=== PATIENT | male | born 1950 | race Caucasian/White ===

== ENCOUNTER 2020-08-23 14:36 | Outpatient (REF) | payer MEDICARE, SELFPAY | END 2020-08-23 14:37 | disposition home or self-care (01) | LOC: HO.LNP 14:36 | PROVIDERS: Visit Provider Internal Medicine | DX: Z20.828 Contact with and (suspected) exposure to other viral communicable diseases (principal) | CPT/HCPCS: U0003 ==

== ENCOUNTER 2020-10-11 14:18 | Outpatient (REF) | payer MEDICARE, SELFPAY ==
[2020-10-11 15:24] LABS: Influenza A PCR NEGATIVE (Negative); Influenza B PCR NEGATIVE (Negative); Resp Syncy Virus RNA Qual PCR NEGATIVE (Negative); SARS COV2 PCR INHOUSE NEGATIVE (Negative)
== END 2020-10-11 14:19 | disposition home or self-care (01) ==
LOC: HO.LNP 14:18
PROVIDERS: Visit Provider Internal Medicine
DX: Z20.822 Contact with and (suspected) exposure to COVID-19 (principal)
CPT/HCPCS: 0241U

== ENCOUNTER 2020-11-19 10:31 | Outpatient (REF) | payer MEDICARE, SELFPAY ==
[2020-11-19 13:34] LABS: MANUAL DIFF FLAG NO
[2020-11-19 13:51] LABS: Basophils Absolute Auto 0.1 X10*3/uL (0.0-0.2); Basophils Percent Auto 1.3 % (0-2); Eosinophils Absolute Auto 0.1 X10*3/uL (0.0-0.4); Eosinophils Percent Auto 2.9 % (0-4); Hematocrit 47.5 % (42-52); Hemoglobin 15.7 g/dl (14.0-18.0); Imm Gran Abs Auto 0.02 X10*3/uL (0.00-0.03); Imm Gran Pct Auto 0.4 % (0.0-0.4); Lymphocytes Absolute Auto 1.2 X10*3/uL (1.2-4.9); Lymphocytes Percent Auto 25.1 % (20-40); Mean Corpuscular HGB Conc 33.1 g/dl (31.0-36.0); Mean Corpuscular Hemoglobin 29.9 pg (27.0-33.0); Mean Corpuscular Volume 90.5 fL (80-98); Monocytes Absolute Auto 0.5 X10*3/uL (0.1-1.2); Monocytes Percent Auto 10.5 % (2-11); Neutrophils Absolute Auto 2.9 X10*3/uL (2.0-8.3); Neutrophils Percent Auto 59.8 % (45-73); Platelet Count 241 X10*3/uL (160-400); Red Blood Count 5.25 X10*6/uL (4.60-5.80); Red Cell Distribution Width 12.2 % (11.0-16.0); White Blood Count 4.8 X10*3/uL (4.8-10.8)
[2020-11-19 14:29] LABS: Alanine Aminotransferase 36 U/L (0-40); Albumin Level 4.3 g/dL (3.5-5.0); Alkaline Phosphatase 91 U/L (39-117); Anion Gap 14 (12-20); Aspartate Amino Transferase 29 U/L (5-37); Bilirubin Total 0.7 mg/dL (0.0-1.0); Blood Urea Nitrogen 19 mg/dL (9-16); Carbon Dioxide 26 mmol/L (22-29); Chloride 105 mmol/L (96-108); Cholesterol 236 mg/dL; Estimated Glomerular Filt Rate > 60; Glucose Fasting 90 mg/dL (60-99); HDL Cholesterol 35 mg/dL; LDL Cholesterol Calculated 172 mg/dl; Potassium 4.8 mmol/L (3.3-5.1); Sodium 140 mmol/L (135-145); Total Protein 6.5 g/dL (6.5-8.0); Triglycerides 145 mg/dL
[2020-11-19 14:34] LABS: Prostate Specific Antigen Scr 2.93 ng/mL (<0.05-4.0)
== END 2020-11-19 10:32 | disposition home or self-care (01) ==
LOC: HO.10HDL 10:31
PROVIDERS: Visit Provider Internal Medicine
DX: K21.9 Gastro-esophageal reflux disease without esophagitis (principal); E78.00 Pure hypercholesterolemia, unspecified; R35.1 Nocturia; Z12.5 Encounter for screening for malignant neoplasm of prostate
CPT/HCPCS: 36415; 80053; 80061; 84153; 85025

== ENCOUNTER 2020-12-03 10:24 | Outpatient (REF) | payer MEDICARE, SELFPAY ==
[2020-12-03 13:58] LABS: MANUAL DIFF FLAG NO
[2020-12-03 14:04] LABS: Basophils Absolute Auto 0.1 X10*3/uL (0.0-0.2); Basophils Percent Auto 0.5 % (0-2); Eosinophils Percent Auto 0.1 % (0-4); Hemoglobin 16.7 g/dl (14.0-18.0); Imm Gran Pct Auto 4.3 % (0.0-0.4); Lymphocytes Absolute Auto 1.1 X10*3/uL (1.2-4.9); Lymphocytes Percent Auto 8.1 % (20-40); Mean Corpuscular HGB Conc 33.4 g/dl (31.0-36.0); Mean Corpuscular Hemoglobin 29.9 pg (27.0-33.0); Mean Corpuscular Volume 89.4 fL (80-98); Mean Platelet Volume 9.8 fL (9.4-12.4); Monocytes Absolute Auto 0.9 X10*3/uL (0.1-1.2); Monocytes Percent Auto 6.3 % (2-11); Neutrophils Absolute Auto 11.3 X10*3/uL (2.0-8.3); Neutrophils Percent Auto 80.7 % (45-73); Platelet Count 251 X10*3/uL (160-400); Red Blood Count 5.59 X10*6/uL (4.60-5.80); Red Cell Distribution Width 12.6 % (11.0-16.0)
[2020-12-03 14:27] LABS: Estimated Average Glucose 111 mg/dL; Hemoglobin A1c % 5.5 %
[2020-12-03 14:37] LABS: Alanine Aminotransferase 40 U/L (0-40); Albumin Level 4.1 g/dL (3.5-5.0); Alkaline Phosphatase 88 U/L (39-117); Anion Gap 15 (12-20); Aspartate Amino Transferase 19 U/L (5-37); Bilirubin Total 0.9 mg/dL (0.0-1.0); Blood Urea Nitrogen 27 mg/dL (9-16); Calcium 8.6 mg/dL (8.4-10.2); Carbon Dioxide 24 mmol/L (22-29); Chloride 105 mmol/L (96-108); Estimated Glomerular Filt Rate > 60; Glucose Random 112 mg/dL (60-115); Potassium 4.4 mmol/L (3.3-5.1); Sodium 140 mmol/L (135-145); Total Protein 6.2 g/dL (6.5-8.0)
== END 2020-12-03 10:25 | disposition home or self-care (01) ==
LOC: HO.10HDL 10:24
PROVIDERS: Visit Provider Internal Medicine
DX: E11.9 Type 2 diabetes mellitus without complications (principal); K29.70 Gastritis, unspecified, without bleeding; J45.909 Unspecified asthma, uncomplicated
CPT/HCPCS: 36415; 80053; 83036; 85025

== ENCOUNTER 2020-12-09 14:47 | Outpatient (REF) | payer MEDICARE, SELFPAY ==
--- NOTE | ~2020-12-09 | XR_ITS ---
EXAMINATION: XR RIBS, RIGHT CLINICAL INFORMATION: Right rib pain COMPARISON: Previous chest x-ray most recent November 2015 TECHNIQUE: 3 views of the right ribs and one view of the chest were obtained. FINDINGS: The cardiac and mediastinal contours are normal. The lungs are clear. There is no pleural effusion or pneumothorax. There is a vertical lucency in the right anterior eighth rib seen on one view only questionable for a nondisplaced fracture, image 3. There are degenerative changes of the thoracic spine. XR/XR ribs RT min 3V w CXR1V IMPRESSION: No evidence for acute disease in the chest. Question nondisplaced right anterior eighth rib fracture. Degenerative changes of the thoracic spine.
== END 2020-12-09 14:48 | disposition home or self-care (01) ==
LOC: HO.XRAY 14:47
PROVIDERS: PCP Internal Medicine; Visit Provider Internal Medicine
DX: R07.81 Pleurodynia (principal)
CPT/HCPCS: 71101

== ENCOUNTER 2021-01-29 12:40 | Emergency (ER) | payer MEDICARE, SELFPAY ==
--- NOTE | ~2021-01-29 | XR_ITS ---
EXAMINATION: XR CHEST CLINICAL INFORMATION: Headache COMPARISON: 11/29/2015 TECHNIQUE: Frontal view of the chest was obtained. FINDINGS: Normal symmetric lung volumes. No parenchymal consolidation. No pleural effusion. No pneumothorax. Cardiomediastinal silhouette and pulmonary vascularity are within normal limits. No acute osseous abnormalities. XR/XR chest 1V IMPRESSION: Unremarkable examination.
--- NOTE | ~2021-01-29 | CT_ITS ---
EXAMINATION: CT HEAD WITHOUT CONTRAST CLINICAL INFORMATION: Headache COMPARISON: None TECHNIQUE: Contiguous axial imaging was performed from the skull base to vertex without intravenous administration of contrast. This CT examination was performed using dose optimization techniques as appropriate, variously including the following: *Automated exposure control *Adjustment of mA and/or kV according to patient size (this includes techniques or standardized protocols for targeted exams where dose is matched to indication/reason for exam; i.e. extremities or head) *Use of iterative reconstruction technique DLP: 768 mGy-cm FINDINGS: There is no evidence of acute intracranial hemorrhage or territorial infarction. No abnormal mass effect or midline shift is seen. Sosa to white matter differentiation is well preserved. No extra-axial fluid collections are identified. The ventricles are normal in size. There is no abnormal attenuation within the brain parenchyma. The osseous structures and soft tissues are normal. The mastoid air cells and visualized portions of the paranasal sinuses are well aerated. CT/CT head/brain wo con IMPRESSION: No acute intracranial pathology.
[2021-01-29 13:00] VITALS: BP 141/80; PULSE 74; RESP 18; TEMP 36.6; O2SAT 96; BMI 27.2
--- NOTE | 2021-01-29 14:27 | ECG_ITS ---
Test Reason : HTN Blood Pressure : / mmHG Vent. Rate : 076 BPM Atrial Rate : 076 BPM P-R Int : 180 ms QRS Dur : 082 ms QT Int : 372 ms P-R-T Axes : 033 -04 -07 degrees QTc Int : 418 ms Normal sinus rhythm Normal ECG When compared with ECG of 29-NOV-2015 20:26, No significant change was found Referred By: Shirin Cerna Electronically Signed By:CLAUDIA DEVRIES MD
--- NOTE | 2021-01-29 14:28 | ED.HA ---
HPI - Headache General Chief Complaint: Headache Stated Complaint: HPB, headache Time Seen by Provider: 01/29/21 14:26 Source: patient and family (Spouse) Mode of arrival: ambulatory Limitations: no limitations History of Present Illness HPI Narrative: 70-year-old male who came in for evaluation of hypertension and headache. [age] male noted at home (using 's blood pressure machine at home) to have high blood pressure for the past 2 days, patient has been having headache since yesterday that started gradually patient is prone to headaches, patient on both sides of the head, blurry vision but no photophobia, no neck stiffness, pain is not radiating anywhere, patient describe it as severe headache which is constant since last night, nothing make it worse or better. Patient had similar headaches in the past. Patient also noted that his both systolic/diastolic blood pressure been high for the last 2 days patient is not diagnosed with hypertension or taking medication for high blood pressure. 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 Related Data Allergies Allergy/AdvReac Type Severity Reaction Status Date / Time Sulfa (Sulfonamide Allergy Mild RASH Unverified 06/24/20 16:20 Antibiotics) [Sulfa (Sulfonamides)] bee pollen [BEE STINGS] Allergy Unknown SWELLING Unverified 06/24/20 16:20 albuterol [Albuterol] AdvReac Mild JITTERY Unverified 06/24/20 16:20 theophylline [Theophylline] AdvReac Mild NAUSEA & Unverified 06/24/20 16:20 VOMITING perfume AdvReac Cough Verified 01/29/21 13:09 GRASS Allergy Severe DIFFICULTY Uncoded 06/24/20 16:20 BREATHING FROM GRASS AND LEAVES Review of Systems Review of Systems: All other systems are reviewed and are negative Constitutional: Reports as per HPI and Reports no additional constitutional complaints Eyes: Reports as per HPI and Reports no additional eye complaints Reports system reviewed and no additional complaints, except as documented Cardiovascular: Reports as per HPI and Reports no additional cardiovascular complaints Respiratory: Reports as per HPI and Reports no additional respiratory complaints Gastrointestinal: Reports as per HPI and Reports no additional gastrointestinal complaints Genitourinary: Reports no additional female genitourinary complaints Musculoskeletal: Reports no additional musculoskeletal complaints Skin/Breast: Reports system reviewed and no additional complaints, except as docu Psychiatric: Reports no additional psychiatric complaints Endocrine: Reports no additional endocrine complaints Hematologic/Lymphatic: Reports no additional hematologic/lymphatic complaints Allergic/Immunologic: Reports no additional allergic/immunologic complaints Reports system reviewed and no additional complaints, except as documented and Reports Abnormal speech present [facility] Past Medical History Medical History Asthma GERD (gastroesophageal reflux disease) Social History Social History Advance Directives: No Advance Directives Information Provided: No Physical Exam Vital Signs: Vital Signs: Last Vital Signs Temp 97.8 F 01/29/21 13:00 Pulse 64 01/29/21 15:20 Resp 18 01/29/21 14:38 BP 146/86 H 01/29/21 14:38 Pulse Ox 96 01/29/21 14:38 Body Mass Index 27.2 Vital signs have been reviewed as appeared to be correct. Blood pressure elevated. Heart rate normal. Respiration rate normal. Temperature normal. Oxygen saturation normal. Appearance: Alert. Oriented X3. No acute distress. Appear very anxious Head: Normal external exam. Normocephalic. Atraumatic. No Chavez signs noted. No raccoon eyes noted Eyes: PERRLA. EOMI. Conjunctiva and sclera normal. Eyelids normal. ENT: TM's Normal. Pharynx normal. Uvula midline. Moist mucous membranes. No trismus noted. No drooling noted. No muffled voice noted. Neck: Normal inspection. Neck supple. FROM. No adenopathy. Thyroid Normal. No meningeal signs. No neck mass noted. CVS: Normal heart rate and rhythm. Heart sound normal. No murmurs noted. Pulses normal throughout. Respiratory: No respiratory distress. Painless inspiration. Breath sounds normal. No wheezes/rales/rhonchi noted. Chest nontender. No accessory muscle usage noted or decreased air movement noted. Abdomen: Soft and nontender. Bowel sounds normal in all 4 quadrants. No distention noted. No organomegaly noted. No visible injury noted. Back: No CVA tenderness. Full range of motion noted. Skin: Skin warm and dry. Normal skin color. Normal skin turgor. No rashes/lesions/lacerations noted. Extremities: No lower extremity edema. Extremities exhibit normal range of motion. Extremities nontender. Neuro: Oriented X 3. No motor deficit. No sensory deficit. Reflexes normal. Course Course Course Narrative: Assessment and plan. 70-year-old male who came in for evaluation of high blood pressure and headache, patient while in the emergency department started to have wheezing and laryngeal spasm (known history of it). Patient has a history of environmental allergy and different perfume he thinks he smelled 1 of the nurses perfume that triggered his condition. Patient required 1 dose of prednisone/albuterol/Ativan to help with anxiety. Patient now with less anxious, headache is better with Toradol, patient had a normal neuro exam/CT head and blood pressure has been monitored in the emergency department systolic of 140 and diastolic in the 80s. Patient will see his PCP this week patient was instructed to take many readings of blood pressure and reviewed with his PCP to decide whether to be started on antihypertensive medication. Airways patent, no stridor, no more wheezing after patient received 1 dose of prednisone and albuterol. MDM - Headache Lab Data Attestation: I reviewed the patient's lab results. Result diagrams: 01/29/21 15:18 01/29/21 15:18 Labs: Lab Results 01/29/21 01/29/21 01/29/21 Range/Units 15:18 15:18 15:18 WBC 6.4 (4.8-10.8) X10*3/uL RBC 5.19 (4.60-5.80) X10*6/uL Hgb 15.4 (14.0-18.0) g/dl Hct 46.5 (42-52) % MCV 89.6 (80-98) fL MCH 29.7 (27.0-33.0) pg MCHC 33.1 (31.0-36.0) g/dl RDW 13.5 (11.0-16.0) % Plt Count 222 (160-400) X10*3/uL MPV 9.5 (9.4-12.4) fL Immature Gran % (Auto) 1.3 H (0.0-0.4) % Neut % (Auto) 67.2 (45-73) % Lymph % (Auto) 17.6 L (20-40) % [place] % (Auto) 10.5 (2-11) % Eos % (Auto) 2.5 (0-4) % Baso % (Auto) 0.9 (0-2) % Lymph # (Auto) 1.1 L (1.2-4.9) X10*3/uL [place] # (Auto) 0.7 (0.1-1.2) X10*3/uL Eos # (Auto) 0.2 (0.0-0.4) X10*3/uL Baso # (Auto) 0.1 (0.0-0.2) X10*3/uL Abs Immat Gran (auto) 0.08 H (0.00-0.03) X10*3/uL Absolute Neuts (auto) 4.3 (2.0-8.3) X10*3/uL Absolute Nucleated RBC 0.000 (0.0-0.012) X10*3/uL Nucleated RBC % (auto) 0.0 (0.0-0.2) /100WBC Sodium 140 (135-145) mmol/L Potassium 4.5 (3.3-5.1) mmol/L Chloride 106 (96-108) mmol/L Carbon Dioxide 25 (22-29) mmol/L Anion Gap 14 (12-20) BUN 20 H (9-16) mg/dL Creatinine 0.85 (0.5-1.4) mg/dL Estim Creat Clear Calc 82.3 Estimated GFR > 60 Random Glucose 86 (60-115) mg/dL Calcium 9.2 D (8.4-10.2) mg/dL Total Bilirubin 0.6 (0.0-1.0) mg/dL Direct Bilirubin 0.2 (0.0-0.5) mg/dL AST 28 D (5-37) U/L ALT 37 (0-40) U/L Alkaline Phosphatase 86 (39-117) U/L Troponin I High Sens 4.1 (<3.5-35.0) ng/L B-Natriuretic Peptide 14 (<100) pg/mL Total Protein 6.4 L (6.5-8.0) g/dL Albumin 4.2 (3.5-5.0) g/dL Lipase 6 L (8-78) U/L COVID-19 ([facility]) (Negative) COVID-19 Clin Com 01/29/21 Range/Units 15:18 WBC (4.8-10.8) X10*3/uL RBC (4.60-5.80) X10*6/uL Hgb (14.0-18.0) g/dl Hct (42-52) % MCV (80-98) fL MCH (27.0-33.0) pg MCHC (31.0-36.0) g/dl RDW (11.0-16.0) % Plt Count (160-400) X10*3/uL MPV (9.4-12.4) fL Immature Gran % (Auto) (0.0-0.4) % Neut % (Auto) (45-73) % Lymph % (Auto) (20-40) % [place] % (Auto) (2-11) % Eos % (Auto) (0-4) % Baso % (Auto) (0-2) % Lymph # (Auto) (1.2-4.9) X10*3/uL [place] # (Auto) (0.1-1.2) X10*3/uL Eos # (Auto) (0.0-0.4) X10*3/uL Baso # (Auto) (0.0-0.2) X10*3/uL Abs Immat Gran (auto) (0.00-0.03) X10*3/uL Absolute Neuts (auto) (2.0-8.3) X10*3/uL Absolute Nucleated RBC (0.0-0.012) X10*3/uL Nucleated RBC % (auto) (0.0-0.2) /100WBC Sodium (135-145) mmol/L Potassium (3.3-5.1) mmol/L Chloride (96-108) mmol/L Carbon Dioxide (22-29) mmol/L Anion Gap (12-20) BUN (9-16) mg/dL Creatinine (0.5-1.4) mg/dL Estim Creat Clear Calc Estimated GFR Random Glucose (60-115) mg/dL Calcium (8.4-10.2) mg/dL Total Bilirubin (0.0-1.0) mg/dL Direct Bilirubin (0.0-0.5) mg/dL AST (5-37) U/L ALT (0-40) U/L Alkaline Phosphatase (39-117) U/L Troponin I High Sens (<3.5-35.0) ng/L B-Natriuretic Peptide (<100) pg/mL Total Protein (6.5-8.0) g/dL Albumin (3.5-5.0) g/dL Lipase (8-78) U/L COVID-19 ([facility]) Negative (Negative) COVID-19 Clin Com See Note Imaging Data Chest x-ray: Radiologist's impression: Unremarkable examination. CT scan - head: Radiologist's impression: No acute intracranial pathology. ECG Data Interpretation: Normal sinus rhythm at 76 beats per minutes, normal intervals, no ST-T changes, no evidence of LVH. Discharge Plan Discharge Clinical Impression: Anxiety Headache Qualifiers: Headache type: tension-type Headache chronicity pattern: acute headache Intractability: not intractable Qualified Code(s): G44.209 - Tension-type headache, unspecified, not intractable Allergic reaction Qualifiers: Encounter type: subsequent encounter Qualified Code(s): T78.40XD - Allergy, unspecified, subsequent encounter Patient Disposition: Home, Self-Care Instructions: Acute Headache (ED) Additional Instructions: Take records of your blood pressure at different times during the day and showed to primary doctor to decide whether to start you on blood pressure medication or not. Referrals: Socrates Garcia MD [Primary Care Provider] - 2 days
[2021-01-29 14:38] VITALS: BP 146/86; PULSE 68; RESP 18; O2SAT 96
[2021-01-29] MEDS: Acetaminophen 325 MG TABLET 650 MG PO (15:08)
[2021-01-29] MEDS: predniSONE 20 MG TABLET 40 MG PO (15:08)
[2021-01-29] MEDS: LORazepam 1 MG TABLET PO (15:09)
--- NOTE | 2021-01-29 15:10 | PC.NURSE ---
Pt medicated with prednisone, tylenol, and ativan. Awaiting resp therapy to admin updraft as pt has developed some upper airway wheezes. Pt's lungs are clear. Sats 96% on RA.
[2021-01-29 15:20] VITALS: PULSE 64
[2021-01-29] MEDS: Albuterol/Iprat 2.5/0.5MG 3 ML AMPUL.NEB INHALE (15:20)
[2021-01-29 15:38] LABS: MANUAL DIFF FLAG NO
[2021-01-29 15:42] LABS: Basophils Absolute Auto 0.1 X10*3/uL (0.0-0.2); Basophils Percent Auto 0.9 % (0-2); Eosinophils Absolute Auto 0.2 X10*3/uL (0.0-0.4); Eosinophils Percent Auto 2.5 % (0-4); Hematocrit 46.5 % (42-52); Hemoglobin 15.4 g/dl (14.0-18.0); Imm Gran Abs Auto 0.08 X10*3/uL (0.00-0.03); Imm Gran Pct Auto 1.3 % (0.0-0.4); Lymphocytes Absolute Auto 1.1 X10*3/uL (1.2-4.9); Lymphocytes Percent Auto 17.6 % (20-40); Mean Corpuscular HGB Conc 33.1 g/dl (31.0-36.0); Mean Corpuscular Hemoglobin 29.7 pg (27.0-33.0); Mean Corpuscular Volume 89.6 fL (80-98); Mean Platelet Volume 9.5 fL (9.4-12.4); Monocytes Absolute Auto 0.7 X10*3/uL (0.1-1.2); Monocytes Percent Auto 10.5 % (2-11); Neutrophils Absolute Auto 4.3 X10*3/uL (2.0-8.3); Neutrophils Percent Auto 67.2 % (45-73); Platelet Count 222 X10*3/uL (160-400); Red Blood Count 5.19 X10*6/uL (4.60-5.80); Red Cell Distribution Width 13.5 % (11.0-16.0); White Blood Count 6.4 X10*3/uL (4.8-10.8)
[2021-01-29 16:04] LABS: COVID-19 Test Negative (Negative); IDNOW Serial# 9DD0AD1C
[2021-01-29 16:06] LABS: Alanine Aminotransferase 37 U/L (0-40); Albumin Level 4.2 g/dL (3.5-5.0); Alkaline Phosphatase 86 U/L (39-117); Anion Gap 14 (12-20); Aspartate Amino Transferase 28 U/L (5-37); B Type Natriuretic Peptide 14 pg/mL (<100); Bilirubin Direct 0.2 mg/dL (0.0-0.5); Bilirubin Total 0.6 mg/dL (0.0-1.0); Blood Urea Nitrogen 20 mg/dL (9-16); Calcium 9.2 mg/dL (8.4-10.2); Carbon Dioxide 25 mmol/L (22-29); Chloride 106 mmol/L (96-108); Creatinine Clr Calc Pharmacy 82.3; Estimated Glomerular Filt Rate > 60; Glucose Random 86 mg/dL (60-115); Lipase 6 U/L (8-78); Potassium 4.5 mmol/L (3.3-5.1); Sodium 140 mmol/L (135-145); Total Protein 6.4 g/dL (6.5-8.0); Troponin-I High Sensitivity 4.1 ng/L (<3.5-35.0)
[2021-01-29] MEDS: Ketorolac Tromethamine 15 MG/ML VIAL IV (16:23)
[2021-01-29] MEDS: 0.9 % Sodium Chloride 1,000 ML 999 ML IVCONT (16:26)
[2021-01-29 17:16] VITALS: BP 139/84; PULSE 85; RESP 16; O2SAT 96
--- NOTE | 2021-01-29 17:26 | PC.NURSE ---
Pt reports that he is feeling better. He was sleeping before he was given DC paperwork. Left with upon discharge.
== END 2021-01-29 17:27 | disposition home or self-care (01) ==
PROVIDERS: Emergency Provider Emergency Medicine; PCP Internal Medicine
DX: G44.209 Tension-type headache, unspecified, not intractable (principal); F41.9 Anxiety disorder, unspecified; T78.49XA Other allergy, initial encounter; R06.2 Wheezing; X58.XXXA Exposure to other specified factors, initial encounter; Z20.822 Contact with and (suspected) exposure to COVID-19
CPT/HCPCS: 36415; 70450; 71045; 80048; 80076; 83690; 83880; 84484; 85025; 87635; 93005; 94640; 96361; 96374; 99284; J1885

== ENCOUNTER 2021-03-14 11:36 | Day surgery (SDC) | payer MEDICARE, SELFPAY ==
--- NOTE | 2021-03-11 08:09 | HO.ANESPROP2 ---
Documented by User: Mare Hammer 03/11/21 08:10 HPI - Anesthesia Eval Consult details Narrative: 70yo M for Colonoscopy PMFSH Past Medical History Medical History Asthma GERD (gastroesophageal reflux disease) Social History Social History Patient Tobacco Use Status: Former Tobacco user Use of substances other than those prescribed or required for medical reasons: No Have you been hit, kicked, punched, or otherwise hurt by someone within the past year? If so, by whom?: No Are you DNR?: No Advance Directives: No Advance Directives Information Provided: Yes Meds Allergies Allergy/AdvReac Type Severity Reaction Status Date / Time Sulfa (Sulfonamide Allergy Mild RASH Verified 03/14/21 12:39 Antibiotics) [Sulfa (Sulfonamides)] bee pollen [BEE STINGS] Allergy Unknown SWELLING Verified 03/14/21 12:39 albuterol [Albuterol] AdvReac Mild JITTERY Verified 03/14/21 12:39 theophylline [Theophylline] AdvReac Mild NAUSEA & Verified 03/14/21 12:39 VOMITING perfume AdvReac Cough Verified 03/14/21 12:39 GRASS Allergy Severe DIFFICULTY Uncoded 03/14/21 12:39 BREATHING FROM GRASS AND LEAVES Exam Exam Date and Time: March 11, 2021 0809 Assessment and Plan Assessment Anesthesia Assessment: Chart Reviewed Documented by User: Alona Argueta 03/14/21 12:51 PMFSH Past Medical History Medical History Asthma GERD (gastroesophageal reflux disease) Family History Family history of problems with anesthesia: No Surgical History History of Problems with Anesthesia: No Social History Social History Patient Tobacco Use Status: Former Tobacco user Use of substances other than those prescribed or required for medical reasons: No Have you been hit, kicked, punched, or otherwise hurt by someone within the past year? If so, by whom?: No Are you DNR?: No Advance Directives: No Advance Directives Information Provided: Yes Meds Allergies Allergy/AdvReac Type Severity Reaction Status Date / Time Sulfa (Sulfonamide Allergy Mild RASH Verified 03/14/21 12:39 Antibiotics) [Sulfa (Sulfonamides)] bee pollen [BEE STINGS] Allergy Unknown SWELLING Verified 03/14/21 12:39 albuterol [Albuterol] AdvReac Mild JITTERY Verified 03/14/21 12:39 theophylline [Theophylline] AdvReac Mild NAUSEA & Verified 03/14/21 12:39 VOMITING perfume AdvReac Cough Verified 03/14/21 12:39 GRASS Allergy Severe DIFFICULTY Uncoded 03/14/21 12:39 BREATHING FROM GRASS AND LEAVES Exam Exam Date and Time: Vital Signs Temp Pulse Resp BP Pulse Ox 03/14/21 11:46 98.1 F 74 18 113/79 95 Airway Mallampati Class: II TM Dist: >3cm Neck ROM: Full Heart: RRR Lungs: CTAB Assessment and Plan Assessment Anesthesia Assessment: Anesthesia Plan Discussed and Chart Reviewed Final Anesthetic Review NPO: Yes ASA Class: II Final Preanesthetic Review: No Changes in Pt Med Stat, Meds/Allgs Chart Reviewed, Consent Obtained/Reviewed and Anes Risks/Benef Reviewed Patient Risk: Low Procedure Risk: Low Assessment/Block/Sedation in SS: Assess/Block/Sedation-SS Anesthetic Plan Anesthetic Plan: MAC: Disposition: Standard PACU
[2021-03-14 11:46] VITALS: BP 113/79; PULSE 74; RESP 18; TEMP 36.7; O2SAT 95; BMI 28.7
[2021-03-14] MEDS: Lactated Ringers 1,000 ML 100 ML IVCONT (12:02)
--- NOTE | 2021-03-14 13:28 | PM.OP ---
Brief Operative Note Date of Service: 03/14/21 Pre-op diagnosis: Screening Post-op diagnosis: other (Colon polyp) Procedure: Colonoscopy top the cecum and TI with snare polypectomy Surgeon: Demetrius Riojas Anesthesia: MAC Was an Vice President Of Engineering used for this Procedure?: No Estimated blood loss (mL): 0 Pathology: other (A. Proximal rectal polyp) Condition: stable Disposition: PACU
[2021-03-14 13:29] VITALS: BP 119/71; PULSE 65; RESP 16; TEMP 36.1; O2SAT 100
[2021-03-14 13:44] VITALS: BP 124/70; PULSE 72; RESP 16; O2SAT 96
[2021-03-14 13:59] VITALS: BP 144/81; PULSE 59; RESP 17; TEMP 36; O2SAT 96
[2021-03-14] MEDS: Albuterol/Iprat 2.5/0.5MG 3 ML AMPUL.NEB INHALE (14:26)
[2021-03-14 14:33] VITALS: RESP 20; O2SAT 99
--- NOTE | 2021-03-14 23:14 | OP_ITS ---
SURGEON: Demetrius Riojas MD INDICATIONS: The patient presents for evaluation of colorectal cancer screening. Full consent has been obtained from him for this, including risks of bleeding and perforation. PREOPERATIVE DIAGNOSIS: Colorectal cancer screening. POSTOPERATIVE DIAGNOSIS: PROCEDURE PERFORMED: Colonoscopy to cecum and terminal ileum with snare polypectomy. ESTIMATED BLOOD LOSS: COMPLICATIONS: ANESTHESIA: Monitored anesthesia care. ASSISTANTS: SPECIMENS: POSTOPERATIVE DIAGNOSES: Colorectal cancer screening, colon polyp, diverticulosis, and internal hemorrhoids. DESCRIPTION OF PROCEDURE: The patient was placed in the left lateral decubitus position. The digital rectal exam revealed no abnormalities. The Olympus video pediatric colonoscope was entered into the rectum and advanced to the cecum with the assistance of abdominal wall pressure. Once in the cecum, I did identify normal-appearing cecal pouch with appendiceal orifice and a normal-appearing ileocecal valve. The terminal ileum was cannulated and appeared normal. Scope was withdrawn back in the colon. The entire cecum and ileocecal valve appeared normal. The scope was slowly withdrawn assessing all mucosal surfaces carefully. Preparation was excellent. There was a moderate amount of sigmoid diverticulosis. In the proximal rectum, was an approximately 10 to 12 mm polyp, which was snared and recovered by suction. The polypectomy site appeared clean, without any sign of residual polyp nor bleeding. I did not visualize any other polyps, colitis, nor angiodysplasia. In the rectum, scope was retroflexed visualizing internal hemorrhoids, but no other pathology. The rectal mucosa appeared normal. The scope was straightened out and withdrawn from the patient. He tolerated the procedure well and was returned to the recovery area in stable condition. IMPRESSION: 1. Proximal rectal polyp, status post snare polypectomy. 2. Diverticulosis. 3. Internal hemorrhoids. PLAN: The results of the biopsy will be checked. Assuming it to be a tubular adenoma, I would recommend a followup colonoscopy in 5 years. If it happens only be hyperplastic and/or inflammatory, then he most likely would not need any further screening colonoscopies given his age of 70, and no first-degree relatives with colorectal cancer. He was advised not to use any aspirin and NSAIDs for 1 week. MD AWAIS Tate/ENOCHL / [phone]
== END 2021-03-14 14:55 | disposition home or self-care (01) ==
PROVIDERS: PCP Internal Medicine; Visit Provider Internal Medicine
PROC: 0DJD8ZZ Inspection of Lower Intestinal Tract, Via Natural or Artificial Opening Endoscopic (ICD-10-PCS; CPT 45378; principal; 2021-03-14 11:50)
DX: Z12.11 Encounter for screening for malignant neoplasm of colon (principal); D12.8 Benign neoplasm of rectum; K57.30 Diverticulosis of large intestine without perforation or abscess without bleeding; K64.8 Other hemorrhoids; K21.9 Gastro-esophageal reflux disease without esophagitis; J45.909 Unspecified asthma, uncomplicated; Z87.891 Personal history of nicotine dependence; Z88.2 Allergy status to sulfonamides; Z88.8 Allergy status to other drugs, medicaments and biological substances
CPT/HCPCS: 45385; 88305

== ENCOUNTER 2021-03-30 12:03 | Outpatient (REF) | payer MEDICARE, SELFPAY ==
[2021-03-30 13:44] LABS: Anion Gap 8 (12-20); Blood Urea Nitrogen 21 mg/dL (9-16); Carbon Dioxide 27 mmol/L (22-29); Chloride 108 mmol/L (96-108); Cholesterol 228 mg/dL; Estimated Glomerular Filt Rate > 60; Glucose Fasting 94 mg/dL (60-99); HDL Cholesterol 36 mg/dL; LDL Cholesterol Calculated 156 mg/dl; Potassium 4.2 mmol/L (3.3-5.1); Sodium 139 mmol/L (135-145); Triglycerides 182 mg/dL
[2021-03-30 14:03] LABS: Vitamin D 25-OH Total 51.1 ng/mL (>30)
== END 2021-03-30 12:04 | disposition home or self-care (01) ==
LOC: HO.10HDL 12:03
PROVIDERS: Visit Provider Internal Medicine
DX: E78.00 Pure hypercholesterolemia, unspecified (principal); I10 Essential (primary) hypertension; J45.909 Unspecified asthma, uncomplicated
CPT/HCPCS: 36415; 80048; 80061; 82306

== ENCOUNTER 2021-06-28 11:10 | Outpatient (REF) | payer MEDICARE, SELFPAY ==
[2021-06-28 14:21] LABS: Cholesterol 211 mg/dL; HDL Cholesterol 35 mg/dL; LDL Cholesterol Calculated 148 mg/dl; Triglycerides 140 mg/dL
== END 2021-06-28 11:11 | disposition home or self-care (01) ==
LOC: HO.10HDL 11:10
PROVIDERS: Visit Provider Internal Medicine
DX: E78.00 Pure hypercholesterolemia, unspecified (principal)
CPT/HCPCS: 36415; 80061

== ENCOUNTER 2021-09-22 16:41 | Outpatient (REF) | payer MEDICARE, SELFPAY ==
[2021-09-22 17:26] LABS: Influenza A PCR NEGATIVE (Negative); Influenza B PCR NEGATIVE (Negative); Resp Syncy Virus RNA Qual PCR NEGATIVE (Negative); SARS COV2 PCR INHOUSE NEGATIVE (Negative)
== END 2021-09-22 16:42 | disposition home or self-care (01) ==
LOC: HO.LNP 16:41
PROVIDERS: Visit Provider Internal Medicine
DX: R09.82 Postnasal drip (principal); R07.89 Other chest pain; R51.9 Headache, unspecified; Z20.822 Contact with and (suspected) exposure to COVID-19
CPT/HCPCS: 0241U

== ENCOUNTER 2021-11-25 10:08 | Outpatient (REF) | payer MEDICARE, SELFPAY ==
--- NOTE | 2021-11-25 11:12 | MHC.AU.ANO ---
Adult Audiological Evaluation Date of Visit: 11/25/21 Reason for Appointment: Patient has started to notice he is asking people to speak up and asking for repetition more often. He has difficulty hearing if someone is speaking in a soft voice. For the most part, he feels he is hearing well in one-on-one conversations. Does patient feel they have a hearing loss?: Yes If Yes, Which Ear?: Both Ears Has hearing been tested previously?: Yes Previous Hearing Test Results: In 2008 at [facility] and Ear- results were not immediately available for review. Patient remembers being told he had hearing loss around the 4000 Hz range. 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 History: No Medical History: Medical History: Headaches, Hypertension, Asthma, Allergies, History of dysphonia secondary to GERD Medication List: Protonix, Sinulair, Flomax, Norvasc, Xanax, Vitamin D Otoscopy: Right Ear: Unremarkable Left Ear: Unremarkable Tympanometry: Tympanometry performed due to: To assess integrity of the middle ear system Right Ear: Normal Middle Ear System (Type A) Left Ear: Normal Middle Ear System (Type A) Hearing Evaluation: Transducer(s) Used: Insert Earphones Method: Conventional Audiometry Stimuli Used: Pure Tones Right Ear: Description of Hearing: Normal from 250-1000 Hz, sloping to moderate sensorineural hearing loss Left Ear: Description of Hearing: Normal from 250-1000 Hz, sloping to moderate sensorineural hearing loss Speech Recognition Threshold (SRT): Method Used: Recorded Lists Stimuli Used: Spondee Words Right Ear: 10 dBHL Left Ear: 10 dBHL Word Discrimination: Method: Recorded Lists Word Lists Used: W-22 Right Ear: 96% at 60 dBHL Left Ear: 100% at 60 dBHL Most Comfortable Level (MCL): Right Ear: 60 dBHL Left Ear: 60 dBHL QuickSIN: Tested binaurally at 60 dBHL: 3 dB SNR loss, which suggests normal/average level of difficulty listening in noise Recommendations: Audiological re-evaluation in one year. Patient does not feel that his hearing loss is significantly impacting his daily life. His word discrimination at an average conversational volume is excellent and his ability to hear in noise is within average range. Hearing aids may not be warranted at this time. Diagnosis: Primary Diagnosis: H90.3 Bilateral Sensorineural Hearing Loss Signature: Provider: Tana Ferrari, CCC-A
== END 2021-11-25 10:09 | disposition home or self-care (01) ==
LOC: HO.SH 10:08
PROVIDERS: Visit Provider Internal Medicine
DX: Z01.118 Encounter for examination of ears and hearing with other abnormal findings (principal); H90.3 Sensorineural hearing loss, bilateral
CPT/HCPCS: 92557; 92567

== ENCOUNTER 2022-04-05 10:34 | Outpatient (REF) | payer MEDICARE, SELFPAY ==
[2022-04-05 13:38] LABS: MANUAL DIFF FLAG NO
[2022-04-05 13:40] LABS: Basophils Percent Auto 0.8 % (0-2); Eosinophils Absolute Auto 0.2 X10*3/uL (0.0-0.4); Eosinophils Percent Auto 2.9 % (0-4); Hemoglobin 14.5 g/dl (14.0-18.0); Imm Gran Abs Auto 0.02 X10*3/uL (0.00-0.03); Imm Gran Pct Auto 0.4 % (0.0-0.4); Lymphocytes Absolute Auto 1.1 X10*3/uL (1.2-4.9); Lymphocytes Percent Auto 22.2 % (20-40); Mean Corpuscular Hemoglobin 29.6 pg (27.0-33.0); Mean Corpuscular Volume 89.8 fL (80.0-98.0); Mean Platelet Volume 10.2 fL (9.4-12.4); Monocytes Absolute Auto 0.6 X10*3/uL (0.1-1.2); Monocytes Percent Auto 11.3 % (2-11); Neutrophils Absolute Auto 3.2 x10*3/uL (2.0-8.3); Neutrophils Percent Auto 62.4 % (45-73); Platelet Count 213 X10*3/uL (160-400); Red Cell Distribution Width 12.9 % (11.0-16.0); White Blood Count 5.1 X10*3/uL (4.8-10.8)
[2022-04-05 13:54] LABS: Alanine Aminotransferase 30 U/L (0-40); Albumin Level 4.2 g/dL (3.5-5.0); Alkaline Phosphatase 104 U/L (39-117); Anion Gap 11 (12-20); Aspartate Amino Transferase 25 U/L (5-37); Bilirubin Total 0.4 mg/dL (0.0-1.0); Blood Urea Nitrogen 22 mg/dL (9-16); C Reactive Protein 0.12 mg/dL (< or = 0.50); Carbon Dioxide 25 mmol/L (22-29); Chloride 108 mmol/L (96-108); Estimated Glomerular Filt Rate > 60; Glucose Random 103 mg/dL (60-115); Potassium 4.3 mmol/L (3.3-5.1); Sodium 140 mmol/L (135-145); Total Protein 6.2 g/dL (6.5-8.0)
== END 2022-04-05 10:35 | disposition home or self-care (01) ==
LOC: HO.10HDL 10:34
PROVIDERS: Visit Provider Internal Medicine
DX: J45.909 Unspecified asthma, uncomplicated (principal); R51.9 Headache, unspecified; I10 Essential (primary) hypertension; K21.9 Gastro-esophageal reflux disease without esophagitis
CPT/HCPCS: 36415; 80053; 85025; 86140

== ENCOUNTER 2022-07-24 11:26 | Outpatient (REF) | payer MEDICARE, SELFPAY ==
[2022-07-24 13:46] LABS: MANUAL DIFF FLAG NO
[2022-07-24 13:51] LABS: Basophils Absolute Auto 0.1 X10*3/uL (0.0-0.2); Basophils Percent Auto 0.8 % (0-2); Eosinophils Absolute Auto 0.2 X10*3/uL (0.0-0.4); Eosinophils Percent Auto 2.5 % (0-4); Hematocrit 47.4 % (42.0-52.0); Hemoglobin 15.7 g/dl (14.0-18.0); Imm Gran Abs Auto 0.04 X10*3/uL (0.00-0.03); Imm Gran Pct Auto 0.7 % (0.0-0.4); Lymphocytes Absolute Auto 1.4 X10*3/uL (1.2-4.9); Lymphocytes Percent Auto 22.8 % (20-40); Mean Corpuscular HGB Conc 33.1 g/dl (31.0-36.0); Mean Corpuscular Hemoglobin 29.3 pg (27.0-33.0); Mean Corpuscular Volume 88.4 fL (80.0-98.0); Mean Platelet Volume 9.8 fL (9.4-12.4); Monocytes Absolute Auto 0.6 X10*3/uL (0.1-1.2); Monocytes Percent Auto 9.8 % (2-11); Neutrophils Absolute Auto 3.9 x10*3/uL (2.0-8.3); Neutrophils Percent Auto 63.4 % (45-73); Platelet Count 229 X10*3/uL (160-400); Red Blood Count 5.36 X10*6/uL (4.60-5.80); Red Cell Distribution Width 12.8 % (11.0-16.0); White Blood Count 6.1 X10*3/uL (4.8-10.8)
[2022-07-24 14:07] LABS: Alanine Aminotransferase 37 U/L (0-40); Albumin Level 4.3 g/dL (3.5-5.0); Alkaline Phosphatase 106 U/L (39-117); Anion Gap 14 (12-20); Aspartate Amino Transferase 26 U/L (5-37); Bilirubin Total 0.5 mg/dL (0.0-1.0); Blood Urea Nitrogen 20 mg/dL (9-16); Calcium 8.9 mg/dL (8.4-10.2); Carbon Dioxide 25 mmol/L (22-29); Chloride 105 mmol/L (96-108); Cholesterol 242 mg/dL; Estimated Glomerular Filt Rate > 60; Glucose Fasting 105 mg/dL (60-99); HDL Cholesterol 42 mg/dL; LDL Cholesterol Calculated 177 mg/dl; Potassium 4.3 mmol/L (3.3-5.1); Sodium 140 mmol/L (135-145); Total Protein 6.6 g/dL (6.5-8.0); Triglycerides 119 mg/dL
[2022-07-24 14:30] LABS: Prostate Specific Antigen Scr 0.87 ng/mL (<0.05-4.0)
== END 2022-07-24 11:27 | disposition home or self-care (01) ==
LOC: HO.10HDL 11:26
PROVIDERS: Visit Provider Internal Medicine
DX: I10 Essential (primary) hypertension (principal); J45.909 Unspecified asthma, uncomplicated; E78.00 Pure hypercholesterolemia, unspecified; N40.0 Benign prostatic hyperplasia without lower urinary tract symptoms; Z12.5 Encounter for screening for malignant neoplasm of prostate
CPT/HCPCS: 36415; 80053; 80061; 84153; 85025

== ENCOUNTER 2023-02-21 12:25 | Outpatient (REF) | payer MEDICARE, SELFPAY ==
[2023-02-21 13:42] LABS: Alanine Aminotransferase 51 U/L (0-40); Alkaline Phosphatase 87 U/L (39-117); Anion Gap 9 (12-20); Aspartate Amino Transferase 31 U/L (5-37); Bilirubin Total 0.9 mg/dL (0.0-1.0); Blood Urea Nitrogen 24 mg/dL (9-16); Calcium 8.8 mg/dL (8.4-10.2); Carbon Dioxide 25 mmol/L (22-29); Chloride 109 mmol/L (96-108); Cholesterol 245 mg/dL; Estimated Glomerular Filt Rate > 60; Glucose Fasting 94 mg/dL (60-99); HDL Cholesterol 46 mg/dL; LDL Cholesterol Calculated 184 mg/dl; Potassium 4.2 mmol/L (3.3-5.1); Sodium 139 mmol/L (135-145); Triglycerides 75 mg/dL
[2023-02-21 14:01] LABS: Estimated Average Glucose 111 mg/dL; Hemoglobin A1c % 5.5 %
== END 2023-02-21 12:26 | disposition home or self-care (01) ==
LOC: HO.10HDL 12:25
PROVIDERS: Visit Provider Internal Medicine
DX: E78.00 Pure hypercholesterolemia, unspecified (principal); J45.909 Unspecified asthma, uncomplicated; I10 Essential (primary) hypertension; R73.01 Impaired fasting glucose
CPT/HCPCS: 36415; 80053; 80061; 83036

== ENCOUNTER 2023-02-26 11:22 | Outpatient (REF) | payer MEDICARE, SELFPAY ==
[2023-02-26 13:46] LABS: Anion Gap 11 (12-20); Blood Urea Nitrogen 26 mg/dL (9-16); C Reactive Protein 0.15 mg/dL (< or = 0.50); Calcium 9.2 mg/dL (8.4-10.2); Carbon Dioxide 25 mmol/L (22-29); Chloride 109 mmol/L (96-108); Estimated Glomerular Filt Rate > 60; Glucose Random 90 mg/dL (60-115); Potassium 4.3 mmol/L (3.3-5.1); Sodium 141 mmol/L (135-145)
[2023-03-01 04:09] LABS: Lyme Abs Screen <0.90 index
== END 2023-02-26 11:23 | disposition home or self-care (01) ==
LOC: HO.10HDL 11:22
PROVIDERS: Visit Provider Internal Medicine
DX: T14.8XXA Other injury of unspecified body region, initial encounter (principal); I10 Essential (primary) hypertension; J45.909 Unspecified asthma, uncomplicated; R73.9 Hyperglycemia, unspecified; W57.XXXA Bitten or stung by nonvenomous insect and other nonvenomous arthropods, initial encounter; Y93.9 Activity, unspecified; Y92.9 Unspecified place or not applicable; Y99.9 Unspecified external cause status
CPT/HCPCS: 36415; 80048; 86140; 86617; 86618

== ENCOUNTER 2023-05-08 20:37 | Emergency (ER) | payer MEDICARE, SELFPAY ==
--- NOTE | 2023-05-08 20:40 | ECG_ITS ---
Test Reason : fast hr Blood Pressure : / mmHG Vent. Rate : 069 BPM Atrial Rate : 069 BPM P-R Int : 200 ms QRS Dur : 086 ms QT Int : 374 ms P-R-T Axes : 031 -23 -05 degrees QTc Int : 400 ms Normal sinus rhythm Minimal voltage criteria for LVH, may be normal variant ( R in aVL ) Borderline ECG When compared with ECG of 29-JAN-2021 14:43, No significant change was found Referred By: Cristal Gonzalez Electronically Signed By:ANDRADE SINHA
[2023-05-08 20:47] VITALS: BP 138/83; PULSE 72; RESP 20; O2SAT 97; BMI 32.3
--- NOTE | 2023-05-08 20:48 | ED_ITS ---
HPI - Arrhythmia/Palpitations General Chief Complaint: Arrhythmia/Palpitations Stated Complaint: heart beating too fast Time Seen by Provider: 05/08/23 22:01 Source: patient Mode of arrival: ambulatory Limitations: no limitations History of Present Illness HPI narrative: History of mild hypertension on Norvasc history of anxiety on Xanax been feeling generalized malaise since today evening checked his heart rate went 70-120 stayed for about 5 minutes felt slightly dizzy no chest pain patient been having this episode off and on for last 6 weeks and been to his PCP who did the EKG which was normal on arrival patient was having sinus rhythm with ventricular rate of 69. Patient has been feeling very anxious and thinks that could be contributing factor Related Data Allergies Allergy/AdvReac Type Severity Reaction Status Date / Time Sulfa (Sulfonamide Allergy Mild RASH Verified 03/14/21 12:39 Antibiotics) [Sulfa (Sulfonamides)] bee pollen [BEE STINGS] Allergy Unknown SWELLING Verified 03/14/21 12:39 albuterol [Albuterol] AdvReac Mild JITTERY Verified 03/14/21 12:39 theophylline [Theophylline] AdvReac Mild NAUSEA & Verified 03/14/21 12:39 VOMITING perfume AdvReac Cough Verified 03/14/21 12:39 GRASS Allergy Severe DIFFICULTY Uncoded 03/14/21 12:39 BREATHING FROM GRASS AND LEAVES Review of Systems Review of Systems: Yes all other systems are reviewed and are negative [facility] Past Medical History Medical History Asthma GERD (gastroesophageal reflux disease) Social History Social History Patient Tobacco Use Status: Former Tobacco user Smoked in Last 30 Days: No Use of substances other than those prescribed or required for medical reasons: No Advance Directives: No Advance Directives Information Provided: No Physical Exam Vital Signs: Vital Signs: Last Vital Signs Temp 97.8 F 05/08/23 23:28 Pulse 60 05/08/23 23:28 Resp 18 05/08/23 23:28 BP 125/80 05/08/23 23:28 Pulse Ox 97 05/08/23 23:28 O2 Del Method Room Air 05/08/23 23:28 BMI result Body Mass Index 32.3 Appearance: Alert. Oriented X3. No acute distress. Anxious Eyes: PERRLA, No Nystagmus ENT: Pharynx normal. Oral Mucosa moist Neck: Normal inspection. Neck supple. CVS: Normal heart rate and rhythm. Pulses normal. Respiratory: No respiratory distress. Equal air entry bilateral, no wheezing /rales/rhonchi Abdomen: Soft and nontender. Bowel sounds are present, no mass palpable, no CVA tenderness Skin: Skin warm and dry. Normal skin color. Normal skin turgor. Extremities: No lower extremity edema. No calf tenderness Neuro: Oriented X 3. No motor deficit. No sensory deficit.No cerebellar signs , cranial nerves II-XII intact Course Course Course Narrative: RME - 72 yo male with history HTN, asthma who presents to the ER for evaluation of elevated HR at home for the last 4-6 weeks. HR went from 50 to 120s today on home pulse oximeter. Seen by Dr. Garcia last week for the same but pulse and BP were normal. He has no palpitations but he doesn't feel right, with fatigue/malaise, nausea and hand tremors. No chest pain. Plan: EKG, labs Medical Decision Making Medical Decision Making [facility] Narrative: During stay in the ER patient had sinus rhythm no arrhythmias noticed possibly patient has SVT/AFib/anxiety patient has occur upon with handbag operator next week will be followed up with handbag operator. Patient advised to come back to the ER if recurrence of palpitation with syncope Differential Diagnosis Differential Diagnoses: The differential diagnosis associated with the presentation includes Sinus tachycardia/AFib/anxiety Lab Data [facility] Lab Attestation statement: I reviewed the patient's lab results. 05/08/23 21:21 05/08/23 21:21 Labs: Lab Results 05/08/23 05/08/23 05/08/23 Range/Units 21:21 21:21 21:21 WBC 6.8 (4.8-10.8) X10*3/uL RBC 4.90 (4.60-5.80) X10*6/uL Hgb 14.9 (14.0-18.0) g/dl Hct 44.0 (42.0-52.0) % MCV 89.8 (80.0-98.0) fL MCH 30.4 (27.0-33.0) pg MCHC 33.9 (31.0-36.0) g/dl RDW 13.0 (11.0-16.0) % Plt Count 217 (160-400) X10*3/uL MPV 9.6 (9.4-12.4) fL Immature Gran % (Auto) 0.6 H (0.0-0.4) % Neut % (Auto) 74.0 H (45-73) % Lymph % (Auto) 16.9 L (20-40) % [facility] % (Auto) 6.8 (2-11) % Eos % (Auto) 1.0 (0-4) % Baso % (Auto) 0.7 (0-2) % Lymph # (Auto) 1.1 L (1.2-4.9) X10*3/uL [facility] [place] [facility] # (Auto) 0.5 (0.1-1.2) X10*3/uL Eos # (Auto) 0.1 (0.0-0.4) X10*3/uL Baso # (Auto) 0.1 (0.0-0.2) X10*3/uL Abs Immat Gran (auto) 0.04 H (0.00-0.03) X10*3/uL Absolute Neuts (auto) 5.0 (2.0-8.3) x10*3/uL Absolute Nucleated RBC 0.000 (0.0-0.012) X10*3/uL Nucleated RBC % (auto) 0.0 (0.0-0.2) /100WBC Sodium 143 (135-145) mmol/L Potassium 4.1 (3.3-5.1) mmol/L Chloride 107 (96-108) mmol/L Carbon Dioxide 24 (22-29) mmol/L Anion Gap 16 (12-20) BUN 22 H (9-16) mg/dL Creatinine 1.05 (0.5-1.4) mg/dL Estim Creat Clear Calc 66.1 Estimated GFR > 60 Random Glucose 121 H (60-115) mg/dL Calcium 9.5 (8.4-10.2) mg/dL Magnesium 2.2 (1.6-2.6) mg/dL Total Bilirubin 0.4 (0.0-1.0) mg/dL Direct Bilirubin 0.1 (0.0-0.5) mg/dL AST 24 (5-37) U/L ALT 34 (0-40) U/L Alkaline Phosphatase 88 (39-117) U/L Troponin I High Sens 4.5 (<3.5-35.0) ng/L Total Protein 6.8 (6.5-8.0) g/dL Albumin 4.3 (3.5-5.0) g/dL TSH 2.34 (0.32-4.0) uIU/mL Discharge Plan Discharge Clinical Impression: Anxiety, Palpitations Patient Disposition: Home, Self-Care Instructions: Heart Palpitations (ED), Generalized Anxiety Disorder (ED) Additional Instructions: Continue your medications for anxiety Follow with handbag operator as scheduled Report to the ER if persistent palpitation/passing out episode Interventions: ED Discharge Assessment Last Done: 05/08/23 23:30 Discharge Date/Time: 05/08/23 23:30
--- NOTE | 2023-05-08 21:23 | MHC.EDTECH ---
This tech brought pt into triage area,EKG obtained, Labs were drawn. Pt brought back to waiting room.
[2023-05-08 21:25] LABS: MANUAL DIFF FLAG NO
[2023-05-08 21:32] LABS: Basophils Absolute Auto 0.1 X10*3/uL (0.0-0.2); Basophils Percent Auto 0.7 % (0-2); Eosinophils Absolute Auto 0.1 X10*3/uL (0.0-0.4); Hemoglobin 14.9 g/dl (14.0-18.0); Imm Gran Abs Auto 0.04 X10*3/uL (0.00-0.03); Imm Gran Pct Auto 0.6 % (0.0-0.4); Lymphocytes Absolute Auto 1.1 X10*3/uL (1.2-4.9); Lymphocytes Percent Auto 16.9 % (20-40); Mean Corpuscular HGB Conc 33.9 g/dl (31.0-36.0); Mean Corpuscular Hemoglobin 30.4 pg (27.0-33.0); Mean Corpuscular Volume 89.8 fL (80.0-98.0); Mean Platelet Volume 9.6 fL (9.4-12.4); Monocytes Absolute Auto 0.5 X10*3/uL (0.1-1.2); Monocytes Percent Auto 6.8 % (2-11); Platelet Count 217 X10*3/uL (160-400); White Blood Count 6.8 X10*3/uL (4.8-10.8)
[2023-05-08 21:49] LABS: Alanine Aminotransferase 34 U/L (0-40); Albumin Level 4.3 g/dL (3.5-5.0); Alkaline Phosphatase 88 U/L (39-117); Anion Gap 16 (12-20); Aspartate Amino Transferase 24 U/L (5-37); Bilirubin Direct 0.1 mg/dL (0.0-0.5); Bilirubin Total 0.4 mg/dL (0.0-1.0); Blood Urea Nitrogen 22 mg/dL (9-16); Calcium 9.5 mg/dL (8.4-10.2); Carbon Dioxide 24 mmol/L (22-29); Chloride 107 mmol/L (96-108); Creatinine Clr Calc Pharmacy 66.1; Estimated Glomerular Filt Rate > 60; Glucose Random 121 mg/dL (60-115); Magnesium 2.2 mg/dL (1.6-2.6); Potassium 4.1 mmol/L (3.3-5.1); Sodium 143 mmol/L (135-145); Total Protein 6.8 g/dL (6.5-8.0); Troponin-I High Sensitivity 4.5 ng/L (<3.5-35.0)
[2023-05-08 22:04] LABS: TSH reflex Free T4 2.34 uIU/mL (0.32-4.0)
[2023-05-08 23:28] VITALS: BP 125/80; PULSE 60; PULSE 67; RESP 18; TEMP 36.6; O2SAT 97
== END 2023-05-08 23:30 | disposition home or self-care (01) ==
PROVIDERS: Physician Assistant; Emergency Provider Internal Medicine; PCP Internal Medicine
DX: F41.9 Anxiety disorder, unspecified (principal); R00.2 Palpitations; Z79.899 Other long term (current) drug therapy
CPT/HCPCS: 36415; 80048; 80076; 83735; 84443; 84484; 85025; 93005; 99283; 99285

== ENCOUNTER → 2023-05-08 20:40 | Outpatient (BNV) | payer MEDICARE, SELFPAY | PROVIDERS: Emergency Provider Internal Medicine; PCP Internal Medicine; Visit Provider Internal Medicine | DX: R07.9 Chest pain, unspecified (principal) | CPT/HCPCS: 93010 ==

== ENCOUNTER 2023-05-11 09:56 | Outpatient (REF) | payer MEDICARE, SELFPAY ==
[2023-05-11 10:24] LABS: MANUAL DIFF FLAG NO
[2023-05-11 10:41] LABS: Basophils Absolute Auto 0.1 X10*3/uL (0.0-0.2); Basophils Percent Auto 1.3 % (0-2); Eosinophils Absolute Auto 0.1 X10*3/uL (0.0-0.4); Eosinophils Percent Auto 1.9 % (0-4); Hematocrit 46.3 % (42.0-52.0); Hemoglobin 15.2 g/dl (14.0-18.0); Imm Gran Abs Auto 0.04 X10*3/uL (0.00-0.03); Imm Gran Pct Auto 0.8 % (0.0-0.4); Lymphocytes Absolute Auto 1.1 X10*3/uL (1.2-4.9); Mean Corpuscular HGB Conc 32.8 g/dl (31.0-36.0); Mean Corpuscular Hemoglobin 30.2 pg (27.0-33.0); Mean Platelet Volume 9.6 fL (9.4-12.4); Monocytes Absolute Auto 0.5 X10*3/uL (0.1-1.2); Monocytes Percent Auto 9.2 % (2-11); Neutrophils Absolute Auto 3.5 x10*3/uL (2.0-8.3); Neutrophils Percent Auto 65.8 % (45-73); Platelet Count 223 X10*3/uL (160-400); Red Blood Count 5.03 X10*6/uL (4.60-5.80); Red Cell Distribution Width 12.9 % (11.0-16.0); White Blood Count 5.3 X10*3/uL (4.8-10.8)
[2023-05-11 14:27] LABS: Amylase 23 U/L (28-100)
[2023-05-11 21:04] LABS: Alanine Aminotransferase 38 U/L (0-40); Alkaline Phosphatase 86 U/L (39-117); Aspartate Amino Transferase 28 U/L (5-37); Bilirubin Direct 0.2 mg/dL (0.0-0.5); Bilirubin Total 0.8 mg/dL (0.0-1.0); Lipase 8 U/L (8-78); Total Protein 6.4 g/dL (6.5-8.0)
== END 2023-05-11 09:57 | disposition home or self-care (01) ==
LOC: HO.LAB 09:56
PROVIDERS: Visit Provider Internal Medicine
DX: R10.84 Generalized abdominal pain (principal)
CPT/HCPCS: 36415; 80076; 82150; 83690; 85025

== ENCOUNTER 2023-05-14 13:42 | Outpatient (AMB) | payer MEDICARE, SELFPAY ==
--- NOTE | 2023-05-14 13:43 | MHC.OFFVIS ---
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 Allergies Hgdkpie-PCE-ZlC Reductase Inhibitor Allergy (Mild, Verified 05/14/23 14:00) feet numbness Sulfa (Sulfonamide Antibiotics) [Sulfa (Sulfonamides)] Allergy (Mild, Verified 03/14/21 12:39) RASH bee pollen [BEE STINGS] Allergy (Unknown, Verified 03/14/21 12:39) SWELLING albuterol [Albuterol] Adverse Reaction (Mild, Verified 03/14/21 12:39) JITTERY theophylline [Theophylline] Adverse Reaction (Mild, Verified 03/14/21 12:39) NAUSEA & VOMITING perfume Adverse Reaction (Verified 03/14/21 12:39) Cough GRASS Allergy (Severe, Uncoded 03/14/21 12:39) DIFFICULTY BREATHING FROM GRASS AND LEAVES Medication List - Last Reconciled 05/14/23 by Cosmo Shaw MD alprazolam 0.25 mg PO BID PRN amlodipine 2.5 mg PO DAILY famotidine 40 mg PO DAILY finasteride 5 mg PO BEDTIME hyoscyamine sulfate 0.125 - 0.25 mg sublingual Q4H PRN montelukast 10 mg PO DAILY pantoprazole 40 mg PO BID tamsulosin 0.4 mg PO BEDTIME HPI HPI Comments History of Present Illness Details Thank you for referring Gagandeep in cardiology management for hyperlipidemia. The lazara 72-year-old male with prior history of hypertension for many years. He has also hyperlipidemia for many years but has been intolerant to statins. He has tried all different forms of statins including Lipitor, Crestor, simvastatin which have caused him feet numbness and inability to tolerate his medications. Since stopping statins the symptoms of dissipated. He is referred here for further management. His last LDL is 184 mg/dL. His blood pressure is well controlled on current therapy with amlodipine. He remains active. Denies any exertional chest pain. He has never had any vascular events including no TIA, myocardial infarction or interventions. Strong family history for premature coronary artery disease on his mother's side including maternal uncle, maternal grandparents. He had a stress test many years ago and as per him this was negative. He walks up and down a hill and denies any symptoms exertional chest pain or shortness of breath. [facility] Medical History Asthma GERD (gastroesophageal reflux disease) HTN (hypertension) Hyperlipidemia Family History Father No problems noted. Mother No problems noted. Social History Patient Tobacco Use Status: Former Tobacco user Review of Systems Const Denies chills, Denies daytime sleepiness, Denies fatigue, Denies fever(s), Denies frequent falls, Denies poor appetite, Denies snoring, Denies stops breathing during sleep, Denies weakness, Denies weight gain and Denies weight loss Eyes Denies loss of vision ENT Denies dizziness and Denies hearing loss Card Denies chest pain, Denies claudication, Denies leg edema, Denies lightheadedness, Denies palpitations, Denies dyspnea, Denies dyspnea on exertion and Denies orthopnea Resp Denies cough, Denies excessive phlegm production, Denies dyspnea, Denies dyspnea on exertion, Denies snoring and Denies wheezing GI Denies abdominal pain, Denies hematochezia, Denies change in bowel habits, Denies nausea and Denies vomiting Denies dysuria and Denies urinary frequency Musc Denies arthralgias, Denies muscle weakness, Denies numbness and Denies other (frequent falls) Skin/Breast Denies nail changes and Denies rash Neuro Denies Abnormal speech present, Denies dizziness, Denies frequent falls, Denies loss of vision, Denies memory loss, Denies numbness and Denies weakness Psych Denies depression and Denies memory loss Endo Denies fatigue and Denies palpitations Sean/Lymph Reports easy bruising and Reports other (anemia) Aller/Immun Denies wheezing Physical Exam Vital Signs: Last Vital Signs Pulse 74 05/14/23 13:49 BP 120/72 05/14/23 13:49 BMI result Body Mass Index 32.0 Const General: cooperative, comfortable, no acute distress, alert, awake and Physically active Nutritional Appearance: overweight Orientation/consciousness: patient oriented x3 Limitations: no limitations HEENT Head: Yes normocephalic and Yes atraumatic Neck Neck: Yes trachea midline, Yes supple and Yes no JVD Carotids: no bruits Resp Effort & Inspection: normal respiratory effort Auscultation: clear to auscultation bilaterally Cardio Jugular venous distension: no JVD Palpation: normal PMI Rate: regular rate Rhythm: regular rhythm Heart sounds: S1 normal heart sound present, S2 normal heart sound present, no click, no gallops, no murmurs and abnormal split S2 GI Auscultation: normal bowel sounds Skin General skin exam: no rashes or lesions noted Neuro General: patient oriented x3 and no focal motor deficits Speech: No Abnormal speech present Extrem General: Yes no clubbing, cyanosis or edema Assessment & Plan Assessment & Plan (1) Hyperlipidemia: Code(s): E78.5 - Hyperlipidemia, unspecified Plan: Significant hyperlipidemia in this elderly gentleman with longstanding history of hypertension which is well controlled at this point time. No symptoms at this point time. Also has family history of coronary artery disease. Will suggest him to undergo coronary calcium score to further assess presence of atherosclerotic cardiovascular disease. Further treatment based on the finding. If his coronary calcium score is 0, I would probably just treat his hypertension and follow-up coronary calcium score every 5 years. Although if he has any level of coronary calcium require intense lipid modification. At that point time we discussed about alternative such as PCSK9 inhibitor therapy. If he has significant elevated coronary calcium score would suggest him to undergo stress testing to evaluate for prognostically significant obstructive coronary artery disease. This was discussed with him in details. He understands agrees. Follow up in the clinic after coronary calcium score. Thank you for allowing me to partake in his care Orders: Orders CT Coronary Calcium Score 1 Week E78.5 - Hyperlipidemia, unspecified Coding Level of Care Code New Pt Level 3 (49974) Diagnoses Hyperlipidemia E78.5
[2023-05-14 13:49] VITALS: BP 120/72; PULSE 74; BMI 32.0
== END 2023-05-14 14:21 | disposition home or self-care (01) ==
PROVIDERS: PCP Internal Medicine; Referring Provider Internal Medicine; Visit Provider Internal Medicine Cardiovascular Disease
DX: E78.5 Hyperlipidemia, unspecified (principal)
CPT/HCPCS: 99213

== ENCOUNTER → 2023-05-14 13:42 | Outpatient (BNVA) | payer MEDICARE, SELFPAY | PROVIDERS: PCP Internal Medicine; Referring Provider Internal Medicine; Visit Provider Internal Medicine Cardiovascular Disease ==

== ENCOUNTER 2023-05-28 08:46 | Outpatient (REF) | payer MEDICARE, SELFPAY ==
--- NOTE | ~2023-05-28 | US_ITS ---
EXAMINATION: US ABDOMEN COMPLETE CLINICAL INFORMATION: Abdominal pain. COMPARISON: Ultrasound abdomen complete dated 09/23/2018 and 11/22/2010. MR abdomen without and with contrast dated 06/01/2014. CT abdomen and pelvis without and with contrast dated 05/26/2014. TECHNIQUE: Real-time imaging of the abdominal viscera. Limited images of the liver demonstrate diffuse increase in echogenicity which is characteristic of primary hepatocellular disease, possibly due to hepatic steatosis and further limits visualization. FINDINGS: PANCREAS: Limited visualization. ABDOMINAL AORTA: Limited visualization. Imaged portion of wfp-xo-bopaze abdominal aorta is nonaneurysmal. INFERIOR VENA CAVA: Limited visualization. LIVER: Diffuse increase in echogenicity of the liver is characteristic of primary hepatocellular disease, possibly due to hepatic steatosis and severely limits visualization. Hypoechoic area within the liver adjacent to the main lobar fissure may represent an area of focal sparing within a fatty liver. GALLBLADDER: No gallstones. No gallbladder wall thickening. COMMON BILE DUCT: Normal in caliber measuring 0.4 cm in diameter. RIGHT KIDNEY: No hydronephrosis. No renal calculi. Limited visualization. The kidney measures 10.1 cm in maximum dimension. LEFT KIDNEY: Fullness of left renal pelvis with dilated calyces. No renal calculi. Limited visualization. Cyst with benign features upper pole 3.7 x 2.6 x 3.0 cm. There is no indication for follow up imaging. Additional smaller left renal cysts identified. The kidney measures 10.1 cm in maximum dimension. SPLEEN: Normal. The spleen measures 9.7 cm in maximum dimension. FREE FLUID: None. US/US abdomen complete IMPRESSION: 1. Diffuse increase in echogenicity of the liver is characteristic of primary hepatocellular disease, possibly due to hepatic steatosis and severely limits visualization. Hypoechoic area within the liver adjacent to the main lobar fissure may represent an area of focal sparing within a fatty liver. 2. Limited visualization. CT scan should be considered for better visualization.
== END 2023-05-28 08:47 | disposition home or self-care (01) ==
LOC: HO.US 08:46
PROVIDERS: Visit Provider Internal Medicine
DX: R10.84 Generalized abdominal pain (principal)
CPT/HCPCS: 76700

== ENCOUNTER 2023-07-10 15:18 | Outpatient (AMB) | payer MEDICARE, SELFPAY ==
[2023-07-10 15:20] VITALS: BP 140/76; PULSE 84; BMI 32.4
--- NOTE | 2023-07-10 15:20 | A.OFFVIS_ITS ---
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 Allergies Xnrdqma-HHG-IxN Reductase Inhibitor Allergy (Mild, Verified 05/14/23 14:00) feet numbness Sulfa (Sulfonamide Antibiotics) [Sulfa (Sulfonamides)] Allergy (Mild, Verified 03/14/21 12:39) RASH bee pollen [BEE STINGS] Allergy (Unknown, Verified 03/14/21 12:39) SWELLING albuterol [Albuterol] Adverse Reaction (Mild, Verified 03/14/21 12:39) JITTERY theophylline [Theophylline] Adverse Reaction (Mild, Verified 03/14/21 12:39) NAUSEA & VOMITING perfume Adverse Reaction (Verified 03/14/21 12:39) Cough GRASS Allergy (Severe, Uncoded 03/14/21 12:39) DIFFICULTY BREATHING FROM GRASS AND LEAVES Medication List - Last Reconciled 07/10/23 by Cosmo Shaw MD alprazolam 0.25 mg PO BID PRN amlodipine 2.5 mg PO DAILY famotidine 40 mg PO DAILY finasteride 5 mg PO BEDTIME hyoscyamine sulfate 0.125 - 0.25 mg sublingual Q4H PRN montelukast 10 mg PO DAILY pantoprazole 40 mg PO BID tamsulosin 0.4 mg PO BEDTIME HPI HPI Comments History of Present Illness Details Gagandeep comes for follow-up. His coronary calcium shows extensive coronary calcification predominantly in the right coronary and the LAD with a total score of 1828. He continues to have no cardiac symptoms. Comes for follow-up visit. Continues to maintain activity level as tolerated. [facility] Medical History (Updated 07/10/23 @ 15:42 by Cosmo Shaw MD) Coronary artery disease HTN (hypertension) Hyperlipidemia GERD (gastroesophageal reflux disease) Asthma Family History Father No problems noted. Mother No problems noted. Social History Patient Tobacco Use Status: Former Tobacco user Review of Systems Const Denies chills, Denies fatigue, Denies fever(s), Denies frequent falls, Denies weakness, Denies weight gain and Denies weight loss ENT Denies dizziness Card Denies chest pain, Denies leg edema, Denies lightheadedness, Denies palpitations, Denies dyspnea, Denies dyspnea on exertion, Denies orthopnea and Denies other (loss of consciousness) Resp Denies cough, Denies dyspnea and Denies dyspnea on exertion GI Denies hematochezia and Denies change in stool character Musc Denies abnormal gait, Denies muscle weakness, Denies numbness, Denies radiating pain into limb and Denies tingling Neuro Denies Abnormal speech present, Denies abnormal gait, Denies dizziness, Denies frequent falls, Denies numbness, Denies tingling and Denies weakness Endo Denies fatigue and Denies palpitations Physical Exam Vital Signs: Last Vital Signs Pulse 84 07/10/23 15:20 BP 140/76 H 07/10/23 15:20 BMI result Body Mass Index 32.4 Const General: cooperative, comfortable, no acute distress, alert, awake and Physically active Nutritional Appearance: overweight Limitations: no limitations Neck Neck: Yes trachea midline, Yes supple and Yes no JVD Carotids: no bruits Resp Effort & Inspection: normal respiratory effort Auscultation: clear to auscultation bilaterally Cardio Jugular venous distension: no JVD Palpation: normal PMI Rate: regular rate Rhythm: regular rhythm Heart sounds: S1 normal heart sound present, S2 normal heart sound present, no click, no gallops, no murmurs and abnormal split S2 GI Auscultation: normal bowel sounds Neuro Speech: No Abnormal speech present Extrem General: Yes no clubbing, cyanosis or edema Assessment & Plan Assessment & Plan (1) Coronary artery disease: Comment: Significantly elevated coronary calcium score of 1800 Code(s): I25.10 - Atherosclerotic heart disease of [place] coronary artery without angina pectoris Plan: Extensive coronary calcification in all 3 coronary arteries however predom inantly in the LAD and the right coronary artery suggestive of extensive coronary atherosclerosis. This was discussed with him. He remains completely asymptomatic. Would like to further assess physiologically with exercise myocardial perfusion imaging to assess for any significant myocardial ischemia that may require alternation therapy. He may have silent myocardial ischemia. Also recommend strongly to manage his risk factors. Blood pressure is currently well optimized. He has been intolerant to statin therapy in the past and will therefore prescribe in PCSK9 inhibitor therapy to pursue goal LDL closer to 50 mg/dL. Rational for therapy was discussed with him. He understands and agrees. Will follow up after myocardial perfusion imaging Orders: Orders CA stress test 07/10/23 I25.10 - Atherosclerotic heart disease of [place] coronary artery without angina pectoris NM cardiolite stress test 2 Weeks I25.10 - Atherosclerotic heart disease of [place] coronary artery without angina pectoris, R07.9 - Chest pain, unspecified Medications: New alirocumab (Praluent Pen) 75 mg subcut Q14D 2 mL 5RF Coding Level of Care Code Est Pt Level 3 (86016) Diagnoses Coronary artery disease I25.10
== END 2023-07-10 15:44 | disposition home or self-care (01) ==
PROVIDERS: PCP Internal Medicine; Visit Provider Internal Medicine Cardiovascular Disease
DX: I25.10 Atherosclerotic heart disease of native coronary artery without angina pectoris (principal)
CPT/HCPCS: 99213

== ENCOUNTER → 2023-07-10 15:18 | Outpatient (BNVA) | payer MEDICARE, SELFPAY | PROVIDERS: PCP Internal Medicine; Visit Provider Internal Medicine Cardiovascular Disease | DX: I25.10 Atherosclerotic heart disease of native coronary artery without angina pectoris (principal) | CPT/HCPCS: 99212 ==

== ENCOUNTER 2023-07-24 13:26 | Outpatient (REF) | payer MEDICARE, SELFPAY ==
[2023-07-24 14:55] LABS: Alanine Aminotransferase 31 U/L (0-40); Albumin Level 4.2 g/dL (3.5-5.0); Alkaline Phosphatase 90 U/L (39-117); Anion Gap 14 (12-20); Aspartate Amino Transferase 25 U/L (5-37); Bilirubin Direct 0.2 mg/dL (0.0-0.5); Bilirubin Total 0.5 mg/dL (0.0-1.0); Blood Urea Nitrogen 16 mg/dL (9-16); Calcium 9.3 mg/dL (8.4-10.2); Carbon Dioxide 26 mmol/L (22-29); Chloride 106 mmol/L (96-108); Estimated Glomerular Filt Rate > 60; Glucose Random 103 mg/dL (60-115); Potassium 4.5 mmol/L (3.3-5.1); Sodium 141 mmol/L (135-145); Total Protein 6.8 g/dL (6.5-8.0)
== END 2023-07-24 13:27 | disposition home or self-care (01) ==
LOC: HO.LAB 13:26
PROVIDERS: PCP Internal Medicine; Visit Provider Internal Medicine
DX: R10.84 Generalized abdominal pain (principal); R93.5 Abnormal findings on diagnostic imaging of other abdominal regions, including retroperitoneum
CPT/HCPCS: 36415; 80048; 80076

== ENCOUNTER 2023-08-02 08:51 | Outpatient (REF) | payer MEDICARE, SELFPAY ==
--- NOTE | ~2023-08-02 | CT_ITS ---
EXAMINATION: CT ABDOMEN AND PELVIS WITH CONTRAST CLINICAL INFORMATION: Abdominal pain. COMPARISON: Abdominal ultrasound 05/28/2023, MRI abdomen 06/01/2014. TECHNIQUE: Multidetector volumetric images were obtained from the superior aspect of the liver through the pubic symphysis following administration 85 mL of Omnipaque 350 intravenous contrast. Sagittal and coronal reformatted images were obtained on the technologist's workstation. Oral contrast: No. This CT examination was performed using dose optimization techniques as appropriate, variously including the following: *Automated exposure control *Adjustment of mA and/or kV according to patient size (this includes techniques or standardized protocols for targeted exams where dose is matched to indication/reason for exam; i.e. extremities or head) *Use of iterative reconstruction technique DLP: 405 mGy-cm FINDINGS: LUNG BASES: The visualized lung bases are unremarkable. LIVER, GALLBLADDER, AND BILIARY TREE: The liver is mildly enlarged at 17.6 cm in cephalocaudad dimension and demonstrates decreased attenuation consistent with hepatic steatosis. There are some areas of focal fatty sparing adjacent to the gallbladder (for example 3:24). There is a tiny 4 mm hypodensity seen in the left lobe consistent with a tiny cyst. No focal hepatic lesion or biliary ductal dilatation is present. The gallbladder is unremarkable with no evidence of radiopaque gallstones, gallbladder wall thickening, or obvious pericholecystic inflammatory changes. PANCREAS: A tiny 5 mm cyst is present in the pancreas, unchanged when compared to 2019 (3:23 compare prior 5:187). The pancreas appears otherwise unremarkable without evidence of worrisome mass or ductal dilatation. SPLEEN: Unremarkable. ADRENAL GLANDS: Unremarkable. KIDNEYS AND URETERS: The kidneys are normal in size, shape, and attenuation. There is a nonobstructing punctate 2 mm right mid renal calculus (4:68.) No hydronephrosis, hydroureter or additional calculi seen. No perinephric stranding. Left-sided benign parapelvic and cortical renal cysts are noted, mostly Bosniak class I, but there is one hemorrhagic Bosniak class II cyst medially at the lower pole which measures 3.5 cm which was well characterized on the 06/01/2014 MRI at which time it measured 2.0 cm. No additional imaging or followup is necessary. BLADDER: Unremarkable. GASTROINTESTINAL TRACT: The small and large bowel are unremarkable. The appendix is unremarkable. ABDOMINAL WALL: No significant hernia is appreciated. LYMPH NODES: Normal. VASCULAR: Unremarkable. PELVIC VISCERA: Mild BPH. Seminal vesicles appear normal. OSSEOUS STRUCTURES: Unremarkable. A bone island is present in S2, unchanged. CT/CT abdomen pelvis w IV con IMPRESSION: 1. A cause for the patient's abdominal pain has not been found. 2. Incidental note made of an enlarged fatty liver, benign stable 5 mm pancreatic cyst, nonobstructing punctate right renal calculus, BPH, and benign Bosniak class I and class II renal cysts which need no further imaging or followup. Fleischner guidelines were followed.
[2023-08-02] MEDS: Barium Sulfate Oral (Mocha) 450 ML ORAL.SUSP 900 ML PO (11:23)
[2023-08-02] MEDS: iohexoL 350 MG/ML 100 ML INFUS..BTL IV (11:23)
== END 2023-08-02 08:52 | disposition home or self-care (01) ==
LOC: HO.CT 08:51
PROVIDERS: PCP Internal Medicine; Visit Provider Internal Medicine
DX: R10.84 Generalized abdominal pain (principal); R93.5 Abnormal findings on diagnostic imaging of other abdominal regions, including retroperitoneum
CPT/HCPCS: 74177; Q9967

== ENCOUNTER → 2023-08-23 07:48 | Outpatient (REF) | payer MEDICARE, SELFPAY ==
--- NOTE | ~2023-08-23 | NM_ITS ---
EXERCISE MYOCARDIAL PERFUSION STUDY INDICATION: Coronary artery disease, assess for ischemia TECHNIQUE: The patient was brought in for an exercise perfusion study on 08/23/2023. Patient performed exercise as per Ted protocol and was injected 30 mCi of sestamibi once target heart rate was achieved. Images were obtained using the SPECT gamma camera interlaced with the gating device. Images were obtained in supine position. Resting perfusion study was performed on 08/24/2023. Patient was administered 30 mCi of sestamibi intravenously at rest. Images were then obtained in supine position. Images were processed with the software and compared side to side in short axis, horizontal long axis and vertical long axis views. Total DLP 111mGy-cm. FINDINGS: Raw images were reviewed. The stress perfusion study showed no significant perfusion of normality. Both uncorrected as well as CT attenuation corrected images were reviewed. The gated study shows normal LV systolic function with calculated LVEF of 74%. LV cavity is normal in size. The gated study shows normal wall thickening and contraction of segments. Resting study shows no significant perfusion abnormality. Gating at rest reveals normal wall motion with ejection fraction at 72%. The findings are consistent with no clear reversible or fixed perfusion of normality. NM/NM cardiolite stress test IMPRESSION: 1. Myocardial perfusion imaging study shows normal myocardial perfusion. 2. Gated LVEF is > 70% during stress and rest. 3. Transient ischemic dilatation not present. EKG component of the test reported separately.
--- NOTE | 2023-08-23 07:51 | CA_ITS ---
Acquisition Time: 2023-08-23 07:58:32 Total Exercise Time: 00:07:51 Test Indications: CAD Medications: ALPRAZOLAM AMLODIPINE FAMOTIDINE PANTOPRAZOLE TAMSULOSIN SINGULAIR Protocol: JANESSA Max HR: 153 BPM 104% of Pred: 147 BPM Max BP: 160/060 mmHG Max Work Load: 9.8 METS Exercise stress test exericse 7 min 51 sec of Janessa protocol achieving 95% MPHR, without anginial symptoms, without arrhythmias, with normotensive response to exercise, without EKG changes. Nuclear images pending. Test reviewed with Dr. Marie Referred By: Cosmo Shaw Overread By: Haley Maldonado
== END ==
LOC: HO.CARD 07:48
PROVIDERS: PCP Internal Medicine; Visit Provider Internal Medicine Cardiovascular Disease
DX: R07.9 Chest pain, unspecified (principal); I25.10 Atherosclerotic heart disease of native coronary artery without angina pectoris
CPT/HCPCS: 78452; 93017; A9500

== ENCOUNTER → 2023-08-23 07:51 | Outpatient (BNV) | payer MEDICARE, SELFPAY | PROVIDERS: PCP Internal Medicine; Visit Provider Nurse Practitioner | DX: I25.10 Atherosclerotic heart disease of native coronary artery without angina pectoris (principal) | CPT/HCPCS: 78452; 93016; 93018 ==

== ENCOUNTER 2023-09-11 09:58 | Outpatient (AMB) | payer MEDICARE, SELFPAY ==
--- NOTE | 2023-09-11 10:01 | A.OFFVIS_ITS ---
Intake Vital Signs 09/11/23 10:02 Height 5 ft 6 in Weight 200 lb 9.93 oz BMI 32.4 BP 130/72 Blood Pressure Location Lt brachial Position Sitting Pulse 78 Intake Visit Reasons: 2 mth f/up mibi/labs Flask Handler Required: No Allergies [id number] Reductase Inhibitor Allergy (Mild, Verified 09/11/23 10:03) feet numbness Sulfa (Sulfonamide Antibiotics) [Sulfa (Sulfonamides)] Allergy (Mild, Verified 09/11/23 10:03) RASH bee pollen [BEE STINGS] Allergy (Unknown, Verified 09/11/23 10:03) SWELLING albuterol [Albuterol] Adverse Reaction (Mild, Verified 09/11/23 10:03) JITTERY theophylline [Theophylline] Adverse Reaction (Mild, Verified 09/11/23 10:03) NAUSEA & VOMITING perfume Adverse Reaction (Verified 09/11/23 10:03) Cough GRASS Allergy (Severe, Uncoded 03/14/21 12:39) DIFFICULTY BREATHING FROM GRASS AND LEAVES Medication List - Last Reconciled 09/11/23 by SANJIV Rabago alirocumab (Praluent Pen) 75 mg subcut Q14D alprazolam 0.25 mg PO BID PRN amlodipine 2.5 mg PO DAILY famotidine 40 mg PO DAILY finasteride 5 mg PO BEDTIME hyoscyamine sulfate 0.125 - 0.25 mg sublingual Q4H PRN montelukast 10 mg PO DAILY pantoprazole 40 mg PO BID tamsulosin 0.4 mg PO BEDTIME HPI 2 mth f/up mibi/labs HPI Details Gagandeep is a 73-year-old male with past medical history of hypertension, hyperlipidemia who recently had a calcium score done which was very elevated. He then underwent an exercise nuclear stress test to evaluate for ischemia and now presents for follow-up. Today he reports he has been feeling well with no concerning symptoms. He denies having any chest discomfort at rest or with activity. He has no shortness of breath, palpitations, presyncope, syncope, PND, orthopnea or edema. He walks his dog routinely and has to go up a hill which he currently tolerates well. 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 He has been taking meds as directed and is tolerating Praluent without any concerning side effects. At present he is not taking daily aspirin. PFSH Medical History Coronary artery disease HTN (hypertension) Hyperlipidemia GERD (gastroesophageal reflux disease) Asthma Family History Father No problems noted. Mother No problems noted. Social History Patient Tobacco Use Status: Former Tobacco user Review of Systems Const All systems reviewed & are unremarkable except as noted in HPI and below ENT Denies dizziness Card Denies chest pain, Denies chest pain at rest, Denies chest pain with activity, Denies rapid heart rate, Denies pedal edema, Denies edema, Denies leg edema, Denies lightheadedness, Denies palpitations, Denies dyspnea, Denies dyspnea on exertion and Denies orthopnea Resp Denies cough, Denies dyspnea and Denies dyspnea on exertion GI Denies hematochezia and Denies change in stool character Musc Denies abnormal gait, Denies limited range of motion, Denies muscle cramps, Denies muscle weakness, Denies numbness, Denies radiating pain into limb, Denies stiffness and Denies tingling Neuro Denies abnormal gait, Denies dizziness, Denies numbness and Denies tingling Endo Denies palpitations Physical Exam Vital Signs: Last Vital Signs Pulse 78 09/11/23 10:02 BP 130/72 09/11/23 10:02 BMI result Body Mass Index 32.4 Const General: cooperative, healthy appearing, comfortable and no acute distress Orientation/consciousness: patient oriented x3 Neck Neck: Yes normal visual inspection Resp Effort & Inspection: normal respiratory effort Auscultation: clear to auscultation bilaterally, no crackles, no rales, no rhonchi and no wheezes Cardio Jugular venous distension: no JVD Rate: regular rate Rhythm: regular rhythm Heart sounds: S1 normal heart sound present, S2 normal heart sound present, no murmurs and no rubs Neuro General: patient oriented x3 Extrem General: Yes normal to inspection and No no pedal edema Psych Appearance: grossly normal Mental Status: mental status grossly normal Speech and movement: Normal speech and movement present Assessment & Plan Assessment & Plan (1) Coronary artery disease: Comment: Significantly elevated coronary calcium score of 1828 Code(s): I25.10 - Atherosclerotic heart disease of [place] coronary artery without angina pectoris Qualifiers: Associated angina: without angina Coronary Disease-Associated Artery/Lesion type: [place] artery [place] vs. transplanted heart: [place] heart Qualified Code(s): I25.10 - Atherosclerotic heart disease of [place] coronary artery without angina pectoris Plan: Cardiac risk factors of hypertension, hyperlipidemia. Recent coronary calcium score 1828. Calcium noted in all 3 vessels however predominantly in the LAD and RCA suggestive of extensive coronary atherosclerosis. Exercise nuclear stress test done 08/23/2023 with exercise 7 minutes 51 seconds achieving 95% mph are with no anginal symptoms and no EKG changes, normal myocardial perfusion imaging. EKG done 05/08/2023 shows normal sinus rhythm with no acute ST or T-wave abnormalities, rate 69. He has no reports of anginal sounding symptoms. He has good activity tolerance. Reviewed all the above with him in detail. He is not on daily aspirin. Will have him start aspirin 81 mg daily. Rationale for this medication reviewed with him. He is intolerant to statins. On last visit he was started on Praluent which he is tolerating well. He is due for a fasting lipid profile which has been ordered by his PCP and he will be obtaining next week. Howe LDL goal is less than 70. He is not diabetic. Blood pressure goal less than 130/85. Currently 130/72. Continue amlodipine. Will check echocardiogram as baseline to assess EF, wall motion. Continue activity as tolerated. Signs and symptoms of angina reviewed with him. Instructed to call this office if he has any new symptoms. Emergency care if signs symptoms not relieved with rest. Cardiology follow-up in 6 months, sooner if needed. (2) HTN (hypertension): Code(s): I10 - Essential (primary) hypertension Qualifiers: Hypertension type: primary hypertension Qualified Code(s): I10 - Essential (primary) hypertension Plan: As above (3) Hyperlipidemia: Code(s): E78.5 - Hyperlipidemia, unspecified Qualifiers: Hyperlipidemia type: unspecified Qualified Code(s): E78.5 - Hyperlipidemia, unspecified Plan: As above, on Praluent. Orders: Orders CA echo transthoracic complete Today I10 - Essential (primary) hypertension, I25.10 - Atherosclerotic heart disease of [place] coronary artery without angina pectoris Medications: New aspirin 81 mg PO DAILY 90 tabs 3RF Coding Level of Care Code Est Pt Level 4 (80233) Diagnoses Coronary artery disease involving [place] coronary artery of [place] heart without angina pectoris I25.10 Associated angina: without angina Coronary Disease-Associated Artery/Lesion type: [place] artery [place] vs. transplanted heart: [place] heart Primary hypertension I10 Hypertension type: primary hypertension Hyperlipidemia, unspecified hyperlipidemia type E78.5 Hyperlipidemia type: unspecified Time Spent (min) 28
[2023-09-11 10:02] VITALS: BP 130/72; PULSE 78; BMI 32.4
== END 2023-09-11 10:34 | disposition home or self-care (01) ==
PROVIDERS: PCP Internal Medicine; Visit Provider Nurse Practitioner Family
DX: I25.10 Atherosclerotic heart disease of native coronary artery without angina pectoris (principal); I10 Essential (primary) hypertension; E78.5 Hyperlipidemia, unspecified
CPT/HCPCS: 99214

== ENCOUNTER → 2023-09-11 09:58 | Outpatient (BNVA) | payer MEDICARE, SELFPAY | PROVIDERS: PCP Internal Medicine; Visit Provider Nurse Practitioner Family | DX: I25.10 Atherosclerotic heart disease of native coronary artery without angina pectoris (principal); I10 Essential (primary) hypertension; E78.5 Hyperlipidemia, unspecified | CPT/HCPCS: 99212 ==

== ENCOUNTER 2023-09-13 09:04 | Outpatient (REF) | payer MEDICARE, SELFPAY ==
[2023-09-13 09:28] LABS: MANUAL DIFF FLAG NO
[2023-09-13 10:03] LABS: Basophils Absolute Auto 0.1 X10*3/uL (0.0-0.2); Basophils Percent Auto 1.3 % (0-2); Eosinophils Absolute Auto 0.1 X10*3/uL (0.0-0.4); Eosinophils Percent Auto 2.7 % (0-4); Hematocrit 46.1 % (42.0-52.0); Hemoglobin 15.2 g/dl (14.0-18.0); Imm Gran Abs Auto 0.02 X10*3/uL (0.00-0.03); Imm Gran Pct Auto 0.4 % (0.0-0.4); Lymphocytes Absolute Auto 1.3 X10*3/uL (1.2-4.9); Lymphocytes Percent Auto 24.1 % (20-40); Mean Corpuscular Hemoglobin 29.3 pg (27.0-33.0); Mean Platelet Volume 9.8 fL (9.4-12.4); Monocytes Absolute Auto 0.6 X10*3/uL (0.1-1.2); Monocytes Percent Auto 11.9 % (2-11); Neutrophils Absolute Auto 3.1 x10*3/uL (2.0-8.3); Neutrophils Percent Auto 59.6 % (45-73); Platelet Count 261 X10*3/uL (160-400); Red Blood Count 5.18 X10*6/uL (4.60-5.80); Red Cell Distribution Width 12.7 % (11.0-16.0); White Blood Count 5.2 X10*3/uL (4.8-10.8)
[2023-09-13 10:29] LABS: Appearance Urine Clear; Color Urine Yellow; Glucose Urine UA Negative (Negative); Leukocyte Esterase Urine Negative (Negative); Nitrite Urine Negative (Negative); Urine Blood Negative (Negative); Urine Ketones Negative (Negative); Urine Protein Negative (Neg-Trace)
[2023-09-13 10:56] LABS: Alanine Aminotransferase 34 U/L (0-40); Alkaline Phosphatase 87 U/L (39-117); Anion Gap 9 (12-20); Aspartate Amino Transferase 30 U/L (5-37); Bilirubin Total 0.8 mg/dL (0.0-1.0); Blood Urea Nitrogen 18 mg/dL (9-16); Calcium 8.9 mg/dL (8.4-10.2); Carbon Dioxide 28 mmol/L (22-29); Chloride 109 mmol/L (96-108); Cholesterol 115 mg/dL (<200); Estimated Glomerular Filt Rate > 60; Glucose Fasting 99 mg/dL (60-99); HDL Cholesterol 35 mg/dL (>40); LDL Cholesterol Calculated 57 mg/dL (<100); Potassium 4.1 mmol/L (3.3-5.1); Prostate Specific Antigen Scr 0.84 ng/mL (<0.05-4.0); Sodium 142 mmol/L (135-145); Total Protein 6.5 g/dL (6.5-8.0); Triglycerides 115 mg/dL (<150)
== END 2023-09-13 09:05 | disposition home or self-care (01) ==
LOC: HO.LAB 09:04
PROVIDERS: PCP Internal Medicine; Visit Provider Internal Medicine
DX: E78.00 Pure hypercholesterolemia, unspecified (principal); J45.909 Unspecified asthma, uncomplicated; I10 Essential (primary) hypertension; K21.9 Gastro-esophageal reflux disease without esophagitis; N40.1 Benign prostatic hyperplasia with lower urinary tract symptoms; R35.1 Nocturia; Z12.5 Encounter for screening for malignant neoplasm of prostate
CPT/HCPCS: 36415; 80053; 80061; 81003; 84153; 85025

== ENCOUNTER → 2023-10-02 09:42 | Outpatient (REF) | payer MEDICARE, SELFPAY ==
--- NOTE | 2023-10-02 09:45 | CA_ITS ---
Transthoracic Echocardiogram Patient (Last, First, Middle): Gagandeep Riojas, Gender: Male Date of : 1950 Age: 73 Procedure Date: 10/02/2023 Procedure Type: Transthoracic Echocardiogram Location: OP Height: 177.8 cm Weight: 90.72 kg BSA: 2.09 m2 Heart Rate: 54 bpm BP: 130 / 72 mmHg Detective Chief: SB Referring MD: Kyleigh Neal RN LACTATIONGregorio Symptoms: I25.10 - Atherosclerotic heart disease of [place] coronary artery without... Study Quality: Adequate ECG Rhythm: Bradycardia Conclusions: - The left ventricular systolic function is normal. The calculated ejection fraction is 64% by biplane method. - No obvious valvular pathology seen on this study. Findings Left Ventricle Normal left ventricular cavity size. There is normal left ventricular wall thickness. The left ventricular systolic function is normal. The calculated ejection fraction is 64% by biplane method. There is no evidence of regional wall motion abnormalities. Diastolic function is normal for age. LV peak GLS -17.4%. Right Ventricle Normal right ventricular cavity size and systolic function. Atria Both atria are normal in size. Aortic Valve There is a normal trileaflet aortic valve. There is no aortic valve stenosis. There is no aortic valve regurgitation. Mitral Valve The mitral valve appears normal. There is no mitral valve regurgitation. There is no mitral valve stenosis. Pulmonic Valve There is trace pulmonic valve regurgitation. Tricuspid Valve Normal tricuspid valve structure. There is mild tricuspid valve regurgitation. There is no evidence of pulmonary hypertension. Great Vessels The aortic annulus, sinuses of valsalva, and asc aorta are normal in size. Small plaque is seen in the sino tubular ridge. Venous The inferior vena cava was not well visualized. Pericardium/Pleural There is no evidence of pericardial effusion. Prior Study Comparison No significant change compared to prior study dated: 09/21/2005. Recommendations, Care & Conclusions No obvious valvular pathology seen on this study. Measurements 2D Linear Measurements IVSd: 0.74 0.6-0.9/0.6-1.0 cm LVIDd: 5.42 3.9-5.3/4.2-5.9 cm LVIDd Index: 2.59 2.4-3.2/2.2-3.1 cm/m2 LVIDs: 3.50 2.0-3.6 cm LVPWd: 0.69 0.7-1.1 cm LA Diam: 3.70 2.7-3.8/3.0-4.0 cm LAIDs Index: 1.77 1.5-2.3 cm/m2 LV Mass: 168.69 67-162/88-224 g LV Mass Index: 80.71 43-95/49-115 g/m2 LVOT Diam: 2.10 3.0+(-)1.3 cm 2D Systolic Function EF 4C: 59.30 >55% EF 2C: 68.40 >55% EF BiP: 63.90 >55% Mitral Valve MV Pk E: 0.72 MV PK A: 0.78 MV Decel Time: 214.00 E/A: 0.90 E'Lateral: 5.55 E'Medial: 5.98 E/E' Med: 12.00 E/E' Lat: 13.00 PHT: 63.00 MVA PHT: 3.49 Decel [place]: 3.37 Aortic Valve AoV Pk Aleks: 1.26 AoV Pk Grad: 6.00 LINDA: 2.83 LVOT LVOT Pk Aleks: 1.03 LVOT Mn Aleks: 0.69 LVOT VTI: 0.22 LVOT Pk Grad: 4.00 LVOT Mn Grad: 2.00 LVOT Diam: 2.10 LVOT Area: 3.46 Diastolic Function MV Pk E: 0.72 MV Pk A: 0.78 E/A: 0.90 E'Medial: 5.98 E/E' Med: 12.00 E' Laterial: 5.55 E/E' Lat: 13.00 Right Ventricle TAPSE (mm): 21.70 TVS' Aleks: 12.10 Tricuspid Valve TR Pk Aleks: 2.15 TR Pk Grad: 18.00 RA Press: 3.00 RVSP: 21.00 Great Vessels Aorta Sinus of Valsalva: 3.60 2.0-3.5 cm Ao Asc: 3.70 2.1-3.4 cm Ao Arch: 3.10 Pulmonary Valve PV Pk Aleks: 1.06 Peak PV Grad: 4.00 IL Pk Aleks: 1.52 Updated in Other Vendor System with Status of Final Spencer Marie MD electronically signed on 10/03/2023 10:47:32 AM with status of Final
== END ==
LOC: HO.CARD 09:42
PROVIDERS: PCP Internal Medicine; Visit Provider Nurse Practitioner Family
DX: I25.10 Atherosclerotic heart disease of native coronary artery without angina pectoris (principal); I10 Essential (primary) hypertension
CPT/HCPCS: 93306; 93356

== ENCOUNTER → 2023-10-02 09:45 | Outpatient (BNV) | payer MEDICARE, SELFPAY | PROVIDERS: PCP Internal Medicine; Visit Provider Internal Medicine | DX: I25.10 Atherosclerotic heart disease of native coronary artery without angina pectoris (principal) | CPT/HCPCS: 93306 ==

== ENCOUNTER 2023-11-21 10:41 | Outpatient (REF) | payer MEDICARE, SELFPAY ==
--- NOTE | ~2023-11-21 | US_ITS ---
EXAMINATION: US VENOUS ULTRASOUND WITH DOPPLER LOWER EXTREMITY, LEFT CLINICAL INFORMATION: Left lower leg pain COMPARISON: None available. TECHNIQUE: Ultrasound of the deep veins is performed from the hip to the calf with compression sonography and color and pulse Doppler assessment. Spectral analysis with color-flow imaging is performed. FINDINGS: There is normal venous compression and respiratory variation and augmented flow. The visualized common femoral vein, superficial femoral vein, profunda femoral vein, popliteal vein, and the trifurcation region shows no evidence of deep venous thrombosis. There is no significant popliteal fossa cyst. If the patient's symptoms persist, followup ultrasound in 5 days 7 days might be of value to exclude proximal propagation from a non-visualized calf vein. US/US venous duplex LE LT IMPRESSION: No DVT demonstrated in the left lower extremity.
== END 2023-11-21 10:42 | disposition home or self-care (01) ==
LOC: HO.US 10:41
PROVIDERS: PCP Internal Medicine; Visit Provider Internal Medicine
DX: M79.662 Pain in left lower leg (principal)
CPT/HCPCS: 93971

== ENCOUNTER 2024-03-26 14:52 | Outpatient (AMB) | payer MEDICARE, SELFPAY ==
--- NOTE | 2024-03-26 15:02 | A.OFFVIS_ITS ---
Vital Signs 03/26/24 15:05 Height 5 ft 6 in Weight 191 lb 12.835 oz BMI 31.0 BP 120/76 Blood Pressure Location Lt brachial Position Sitting Pulse 76 Intake Visit Reasons: 6 mth fu Intake Note: 6 month follow-up with ekg feeling good Gradall Operator Required: No Allergies Dexrlda-ZBU-AoG Reductase Inhibitor Allergy (Mild, Verified 09/11/23 10:03) feet numbness Sulfa (Sulfonamide Antibiotics) [Sulfa (Sulfonamides)] Allergy (Mild, Verified 09/11/23 10:03) RASH bee pollen [BEE STINGS] Allergy (Unknown, Verified 09/11/23 10:03) SWELLING albuterol [Albuterol] Adverse Reaction (Mild, Verified 09/11/23 10:03) JITTERY theophylline [Theophylline] Adverse Reaction (Mild, Verified 09/11/23 10:03) NAUSEA & VOMITING perfume Adverse Reaction (Verified 09/11/23 10:03) Cough GRASS Allergy (Severe, Uncoded 03/14/21 12:39) DIFFICULTY BREATHING FROM GRASS AND LEAVES Medication List - Last Reconciled 03/26/24 by Cosmo Shaw MD alprazolam 0.25 mg PO BID PRN amlodipine 2.5 mg PO DAILY aspirin 81 mg PO DAILY evolocumab (Repatha SureClick) 140 mg subcut Q2W 30 days famotidine 40 mg PO DAILY finasteride 5 mg PO BEDTIME hyoscyamine sulfate 0.125 - 0.25 mg sublingual Q4H PRN montelukast 10 mg PO DAILY pantoprazole 40 mg PO BID tamsulosin 0.4 mg PO BEDTIME HPI Comments Details: Gagandeep comes for follow-up. He has been doing well from cardiac perspective. Maintains active lifestyle. Denies any exertional chest pain or shortness of breath. Denies any exercise intolerance. Takes all his medications. He says blood pressures been well controlled. LDL on addition of Repatha has been well controlled at 57 mg/dL. Denies any prolonged palpitations. No lightheadedness, syncope. No heart failure symptoms. [facility]LY [facility] Medical History Coronary artery disease HTN (hypertension) Hyperlipidemia GERD (gastroesophageal reflux disease) Asthma Family History Father No problems noted. Mother No problems noted. Social History Patient Tobacco Use Status: Former Tobacco user Review of Systems Const Denies chills, Denies fatigue, Denies fever(s), Denies frequent falls, Denies weakness, Denies weight gain and Denies weight loss ENT Denies dizziness Card Denies chest pain, Denies leg edema, Denies lightheadedness, Denies palpitations, Denies dyspnea, Denies dyspnea on exertion, Denies orthopnea and Denies other (loss of consciousness) Resp Denies cough, Denies dyspnea and Denies dyspnea on exertion GI Denies hematochezia and Denies change in stool character Musc Denies abnormal gait, Denies muscle weakness, Denies numbness, Denies radiating pain into limb and Denies tingling Neuro Denies abnormal gait, Denies dizziness, Denies frequent falls, Denies numbness, Denies tingling and Denies weakness Endo Denies fatigue and Denies palpitations Physical Exam Vital Signs: Last Vital Signs Pulse 76 03/26/24 15:05 BP 120/76 03/26/24 15:05 BMI result Body Mass Index 31.0 Const General: cooperative, healthy appearing, comfortable and no acute distress Orientation/consciousness: patient oriented x3 Neck Neck: Yes normal visual inspection Resp Effort & Inspection: normal respiratory effort Auscultation: clear to auscultation bilaterally, no crackles, no rales, no rhonchi and no wheezes Cardio Jugular venous distension: no JVD Rate: regular rate Rhythm: regular rhythm Heart sounds: S1 normal heart sound present, S2 normal heart sound present, no murmurs and no rubs Neuro General: patient oriented x3 Extrem General: Yes normal to inspection and No no pedal edema Psych Appearance: grossly normal Mental Status: mental status grossly normal Speech and movement: Normal speech and movement present Office Procedures EKG Details: EKG shows normal sinus rhythm with Q-waves in mostly lead to otherwise no significant other ST T wave changes. [id number], Complete Assessment & Plan Assessment & Plan (1) Coronary artery disease: Comment: Significantly elevated coronary calcium score of 1828 Code(s): I25.10 - Atherosclerotic heart disease of [place] coronary artery without angina pectoris Category: Medical Qualifiers: Coronary Disease-Associated Artery/Lesion type: [place] artery [place] vs. transplanted heart: [place] heart Associated angina: without angina Q ualified Code(s): I25.10 - Atherosclerotic heart disease of [place] coronary artery without angina pectoris Plan: Significant coronary calcium buildup consistent with underlying coronary artery disease. Currently not having any concerning symptoms. Myocardial perfusion imaging at good workload was within normal limits. Balanced ischemia is likely although he has not having any concerning symptoms at this point time. Discussed to report any new symptoms. Continue aggressive medical therapy. Continue low-dose aspirin therapy for life. Continue current statin modification with LDL currently well optimized. Continue aggressive blood pressure control. (2) HTN (hypertension): Code(s): I10 - Essential (primary) hypertension Category: Medical Qualifiers: Hypertension type: primary hypertension Qualified Code(s): I10 - Essential (primary) hypertension Plan: Hypertension which is currently well optimized on current therapy. Importance of good blood pressure control was discussed. Continue current therapy. Advised to continue monitor blood pressure at home maintain a log. Goal blood pressure less than 130/84. Low-salt diet was discussed. Follow up in the clinic in 1 year's time, sooner p.r.n.. Thank you for allowing me to partake in his care Coding Level of Care Code Est Pt Level 4 (13562) Diagnoses Coronary artery disease involving [place] coronary artery of [place] heart without angina pectoris I25.10 Coronary Disease-Associated Artery/Lesion type: [place] artery [place] vs. transplanted heart: [place] heart Associated angina: without angina Primary hypertension I10 Hypertension type: primary hypertension CPT Codes EKG - CPT: 58804-[id number], Complete ([id number])
[2024-03-26 15:05] VITALS: BP 120/76; PULSE 76; BMI 31.0
== END 2024-03-26 15:27 | disposition home or self-care (01) ==
PROVIDERS: PCP Internal Medicine; Visit Provider Internal Medicine Cardiovascular Disease
DX: I25.10 Atherosclerotic heart disease of native coronary artery without angina pectoris (principal); I10 Essential (primary) hypertension
CPT/HCPCS: 93010; 99214

== ENCOUNTER → 2024-03-26 14:52 | Outpatient (BNVA) | payer MEDICARE, SELFPAY | PROVIDERS: PCP Internal Medicine; Visit Provider Internal Medicine Cardiovascular Disease | DX: I25.10 Atherosclerotic heart disease of native coronary artery without angina pectoris (principal); I10 Essential (primary) hypertension; R94.31 Abnormal electrocardiogram [ECG] [EKG] | CPT/HCPCS: 93005; 99212 ==

== ENCOUNTER 2024-07-15 08:47 | Outpatient (REF) | payer MEDICARE, SELFPAY ==
--- NOTE | ~2024-07-15 | US_ITS ---
EXAMINATION: US ABDOMEN COMPLETE CLINICAL INFORMATION: Right-sided abdominal pain. COMPARISON: 05/28/2023. CT 08/02/2023. TECHNIQUE: Real-time imaging of the abdominal viscera. FINDINGS: PANCREAS: Predominantly obscured by bowel gas. No obvious abnormality. ABDOMINAL AORTA: The proximal, mid, and distal segments are normal in caliber. INFERIOR VENA CAVA: Visualized portions are normal. Limited evaluation. LIVER: Diffusely increased echogenicity compatible with fatty infiltration with focal fatty sparing around the gallbladder fossa, similar to previous. No intrahepatic biliary ductal dilatation. GALLBLADDER: Normal. The gallbladder is physiologically distended without evidence of stones, sludge, polyps, wall thickening or pericholecystic fluid. COMMON BILE DUCT: Normal in caliber measuring 0.4 cm in diameter. RIGHT KIDNEY: Normal. No hydronephrosis. No renal calculi or focal parenchymal lesions. The kidney measures 9.9 cm in maximum dimension. LEFT KIDNEY: Simple appearing cysts, measuring 3.2 x 3.1 x 2.3 cm in the upper pole and 4.0 x 2.5 x 3.0 cm in the lower pole, similar to the previous study. Peripelvic cyst also noted. No hydronephrosis. No renal calculi or focal parenchymal lesions. The kidney measures 11.7 cm in maximum dimension. SPLEEN: Normal. The spleen measures 10 cm in maximum dimension. FREE FLUID: None. US/US abdomen complete IMPRESSION: 1. Diffuse fatty infiltration of the liver with focal fatty sparing around the gallbladder fossa, similar to previous. No evidence of cholecystitis. 2. Left renal cysts. No significant change. Electronically signed by: José Arita MD 07/15/2024 12:03 PM EDT
== END 2024-07-15 08:48 | disposition home or self-care (01) ==
LOC: HO.US 08:47
PROVIDERS: PCP Internal Medicine; Visit Provider Internal Medicine
DX: R10.31 Right lower quadrant pain (principal)
CPT/HCPCS: 76700

== ENCOUNTER 2024-09-08 09:36 | Outpatient (REF) | payer MEDICARE, SELFPAY ==
[2024-09-08 09:51] LABS: MANUAL DIFF FLAG NO
[2024-09-08 10:47] LABS: Basophils Percent Auto 0.3 % (0-2); Eosinophils Percent Auto 0.4 % (0-4); Hematocrit 46.7 % (42.0-52.0); Hemoglobin 15.6 g/dl (14.0-18.0); Imm Gran Abs Auto 0.08 X10*3/uL (0.00-0.03); Imm Gran Pct Auto 0.9 % (0.0-0.4); Lymphocytes Absolute Auto 1.4 X10*3/uL (1.2-4.9); Lymphocytes Percent Auto 15.3 % (20-40); Mean Corpuscular HGB Conc 33.4 g/dl (31.0-36.0); Mean Corpuscular Hemoglobin 29.8 pg (27.0-33.0); Mean Corpuscular Volume 89.1 fL (80.0-98.0); Mean Platelet Volume 9.5 fL (9.4-12.4); Monocytes Absolute Auto 0.7 X10*3/uL (0.1-1.2); Monocytes Percent Auto 7.8 % (2-11); Neutrophils Absolute Auto 6.9 x10*3/uL (2.0-8.3); Neutrophils Percent Auto 75.3 % (45-73); Platelet Count 244 X10*3/uL (160-400); Red Blood Count 5.24 X10*6/uL (4.60-5.80); Red Cell Distribution Width 13.1 % (11.0-16.0); White Blood Count 9.2 X10*3/uL (4.8-10.8)
[2024-09-08 11:26] LABS: Alanine Aminotransferase 44 U/L (0-40); Alkaline Phosphatase 107 U/L (39-117); Anion Gap 8 (12-20); Aspartate Amino Transferase 26 U/L (5-37); Bilirubin Total 0.7 mg/dL (0.0-1.0); Blood Urea Nitrogen 25 mg/dL (9-16); Calcium 9.4 mg/dL (8.4-10.2); Carbon Dioxide 29 mmol/L (22-29); Chloride 107 mmol/L (96-108); Cholesterol 104 mg/dL (<200); Estimated Glomerular Filt Rate > 60; Glucose Fasting 99 mg/dL (60-99); HDL Cholesterol 46 mg/dL (>40); LDL Cholesterol Calculated 40 mg/dL (<100); Potassium 4.4 mmol/L (3.3-5.1); Sodium 140 mmol/L (135-145); Total Protein 6.5 g/dL (6.5-8.0); Triglycerides 90 mg/dL (<150)
[2024-09-08 11:46] LABS: Prostate Specific Antigen 0.37 ng/mL (<0.05-4.0)
== END 2024-09-08 09:37 | disposition home or self-care (01) ==
LOC: HO.LAB 09:36
PROVIDERS: PCP Internal Medicine; Visit Provider Internal Medicine
DX: Z12.5 Encounter for screening for malignant neoplasm of prostate (principal); I10 Essential (primary) hypertension; E78.00 Pure hypercholesterolemia, unspecified; K21.9 Gastro-esophageal reflux disease without esophagitis; N40.0 Benign prostatic hyperplasia without lower urinary tract symptoms
CPT/HCPCS: 36415; 80053; 80061; 84153; 85025

== ENCOUNTER 2024-12-19 16:00 | Emergency (ER) | payer MEDICARE, SELFPAY ==
--- NOTE | ~2024-12-19 | XR_ITS ---
CLINICAL HISTORY: chest pain 2 view chest x-ray Comparison: CR - XR CHEST 1V - 01/29/21 14:53 EDT Findings: The prior reports are not available for review. The lungs are clear. Normal size heart. No acute fracture. IMPRESSION: 1. No acute findings. This document has been electronically signed by: Imelda Crews MD on 12/19/2024 16:49:38
--- NOTE | 2024-12-19 16:03 | ECG_ITS ---
Test Reason : cp Blood Pressure : */* mmHG Vent. Rate : 79 BPM Atrial Rate : 79 BPM P-R Int : 190 ms QRS Dur : 80 ms QT Int : 366 ms P-R-T Axes : 40 -18 -13 degrees QTcB Int : 419 ms Normal sinus rhythm with sinus arrhythmia Normal ECG When compared with ECG of 08-May-2023 20:43, No significant change was found Referred By: Carmencita Tolliver Electronically Signed By: ANDRADE SINHA
--- NOTE | 2024-12-19 16:14 | ED_ITS ---
HPI - General Adult General Chief complaint: Chest Pain Stated complaint: chest pain/ bp is high Time Seen by Provider: 12/19/24 22:04 History of Present Illness ED Provider: Wilfred NASH narrative: The patient is a 74-year-old male who says that over the last several months he has been having episodes of chest pain. He does not have any history of known coronary disease. He has no history of ND or stroke. He is on medication for blood pressure. He says that today he developed chest pain after a stressful encounter his had had with her daughter. Apparently patient's and her daughter do not have a good relationship and really talk. They spoke today and it did not go well. The patient subsequently developed chest pain that lasted for few hours. He he says that he drove himself to a local fire station where he was found to have a high blood pressure reading and he was encouraged to come to the hospital. He lives in [place] but usually gets his medical care at [place] and therefore drove himself here. His discomfort resolves at about the time he arrived at the hospital. He estimates he had 3 or 4 hours of discomfort before arriving. He says he has had similar discomfort in the past under similarly stressful circumstances. No pleuritic pain. No pain or swelling in his legs. No diaphoresis. Related Data Home Medications ?Medication ?Instructions ?Recorded ?Confirmed alprazolam 0.25 mg tablet 0.25 mg PO BID PRN 05/14/23 03/26/24 amlodipine 2.5 mg tablet 2.5 mg PO DAILY 05/14/23 03/26/24 famotidine 40 mg tablet 40 mg PO DAILY 05/14/23 03/26/24 finasteride 5 mg tablet 5 mg PO BEDTIME 05/14/23 03/26/24 hyoscyamine sulfate 0.125 mg 0.125 - 0.25 mg sublingual Q4H PRN 05/14/23 03/26/24 sublingual tablet abdominal pain montelukast 10 mg tablet 10 mg PO DAILY 05/14/23 03/26/24 pantoprazole 40 mg tablet,delayed 40 mg PO BID 05/14/23 03/26/24 release tamsulosin 0.4 mg capsule 0.4 mg PO BEDTIME 05/14/23 03/26/24 Previous Rx's ?Medication ?Instructions ?Recorded aspirin 81 mg tablet,delayed 81 mg PO DAILY #90 tabs 09/11/23 release evolocumab 140 mg/mL subcutaneous 140 mg subcut Q2W 90 days #7 mL 06/27/24 pen injector (Emerald Whitmore) Allergies Allergy/AdvReac Type Severity Reaction Status Date / Time Dtgsiie-YSO-WkR Reductase Allergy Mild feet Verified 12/19/24 16:16 Inhibitor numbness Sulfa (Sulfonamide Allergy Mild RASH Verified 12/19/24 16:16 Antibiotics) [Sulfa (Sulfonamides)] bee pollen [BEE STINGS] Allergy Unknown SWELLING Verified 12/19/24 16:16 albuterol [Albuterol] AdvReac Mild JITTERY Verified 12/19/24 16:16 theophylline [Theophylline] AdvReac Mild NAUSEA & Verified 12/19/24 16:16 VOMITING perfume AdvReac Cough Verified 12/19/24 16:16 GRASS Allergy Severe DIFFICULTY Uncoded 03/14/21 12:39 BREATHING FROM GRASS AND LEAVES Review of Systems 2 Review of Systems: Yes all other systems are reviewed and are negative [facility] Past Medical History Medical History Coronary artery disease HTN (hypertension) Hyperlipidemia GERD (gastroesophageal reflux disease) Asthma Family History Family History Father No problems noted. Mother No problems noted. Social History Social History Alcohol intake: former Patient Tobacco Use Status: Former Tobacco user Smoked in Last 30 Days: No Use of substances other than those prescribed or required for medical reasons: No Advance Directives: No Advance Directives Information Provided: No Do you have a plan to hurt others: No Plan Physical Exam ED Vital Signs: Vital Signs - 24 hr 12/19/24 16:16 12/19/24 20:01 12/19/24 22:01 Temperature 98.0 F 97.4 F 97.1 F Pulse Rate 78 68 64 Respiratory Rate 18 18 18 Blood Pressure 162/98 H 153/87 H 149/83 H Pulse Oximetry 95 95 98 Oxygen Delivery Method Room Air Room Air Room Air 12/19/24 22:32 Temperature 97.1 F Pulse Rate 64 Respiratory Rate 18 Blood Pressure 149/83 H Pulse Oximetry 98 Oxygen Delivery Method Room Air BMI result Body Mass Index 28.3 Const Other: The patient is a 74-year-old man who looks younger than his age. He seems quite healthy looking. He does not appear acutely ill in any way. He is pleasant cooperative. Orientation/consciousness: patient oriented x3 HENMT Other: Face is symmetrical. Mucous membranes moist. Eyes General: appearance normal, both eyes and all related structures Neck Neck: Yes normal visual inspection and Yes full ROM Resp Effort & Inspection: normal respiratory effort Auscultation: clear to auscultation bilaterally Cardio Rate: regular rate Rhythm: regular rhythm Heart sounds: S1 normal heart sound present and S2 normal heart sound present GI Other: Abdomen is soft and nontender Skin General skin exam: no rashes or lesions noted Neuro General: patient oriented x3, tone normal, moves all extremities, no focal motor deficits and CN's II-XI intact bilaterally Extrem Other: no calf swelling or tenderness, no peripheral edema, no asymmetry. Course Course Course Narrative: This is a rapid medical exam performed by Inez Tolliver NP: Additional HPI, ROS, PE not included below will be deferred to primary provider. Patient is a 74-year-old male with history of HTN, HLD, CAD presenting to the ED with complaint of substernal chest pain for the past 1-2 weeks. BP elevated. Reports recent broken ribs, unsure of pain is related to that. Rates 3-4/10. Plan: EKG, labs, CXR Medical Decision Making Medical Decision Making MDM Narrative: The patient is a 74-year-old male who comes to the emergency room for evaluation of an episode of chest pain lasted about 3 or 4 hours. The chest pain seems to have been preceded by family stress. The patient acknowledges a history of chest pain associated with stressful situations. His EKG today is very reassuring as are his labs including 2 negative troponins. The patient is reassured that his chest pain today did not seem to be a warning of a heart attack. I think he may be discharged to follow up with regular doctor. Lab Data 12/19/24 16:23 12/19/24 16:23 Labs: Lab Results 12/19/24 12/19/24 Range/Units 16:23 21:10 WBC 6.5 (4.8-10.8) X10*3/uL RBC 5.24 (4.60-5.80) X10*6/uL Hgb 15.8 (14.0-18.0) g/dl Hct 47.0 (42.0-52.0) % MCV 89.7 (80.0-98.0) fL MCH 30.2 (27.0-33.0) pg MCHC 33.6 (31.0-36.0) g/dl RDW 12.6 (11.0-16.0) % Plt Count 235 (160-400) X10*3/uL MPV 9.4 (9.4-12.4) fL Immature Gran % (Auto) 0.8 H (0.0-0.4) % Neut % (Auto) 65.4 (45-73) % Lymph % (Auto) 21.7 (20-40) % Mineral % (Auto) 9.3 (2-11) % Eos % (Auto) 1.7 (0-4) % Baso % (Auto) 1.1 (0-2) % Lymph # (Auto) 1.4 (1.2-4.9) X10*3/uL Mineral # (Auto) 0.6 (0.1-1.2) X10*3/uL Eos # (Auto) 0.1 (0.0-0.4) X10*3/uL Baso # (Auto) 0.1 (0.0-0.2) X10*3/uL Abs Immat Gran (auto) 0.05 H (0.00-0.03) X10*3/uL Absolute Neuts (auto) 4.2 (2.0-8.3) x10*3/uL Absolute Nucleated RBC 0.000 (0.0-0.012) X10*3/uL Nucleated RBC % (auto) 0.0 (0.0-0.2) /100WBC Sodium 141 (135-145) mmol/L Potassium 4.6 (3.3-5.1) mmol/L Chloride 108 (96-108) mmol/L Carbon Dioxide 27 (22-29) mmol/L Anion Gap 11 L (12-20) BUN 18 H (9-16) mg/dL Creatinine 0.93 (0.5-1.4) mg/dL Estim Creat Clear Calc 77.2 Estimated GFR > 60 Random Glucose 94 (60-115) mg/dL Calcium 9.7 (8.4-10.2) mg/dL Total Bilirubin 0.5 (0.0-1.0) mg/dL AST 34 (5-37) U/L ALT 43 H (0-40) U/L Alkaline Phosphatase 90 (39-117) U/L Troponin I High Sens 3.3 3.2 (<3.5-35.0) ng/L B-Natriuretic Peptide < 10 (<100) pg/mL Total Protein 7.4 (6.5-8.0) g/dL Albumin 4.3 (3.5-5.0) g/dL Influenza Type A (PCR) NEGATIVE (Negative) Influenza Type B (PCR) NEGATIVE (Negative) RSV RNA Qual (PCR) NEGATIVE (Negative) SARS-CoV-2 RNA (RT-PCR) NEGATIVE (Negative) Independent Interpretation I performed an independent interpretation of an: EKG Interpretation: EKG at 16:07 shows normal sinus rhythm at 79 beats per minute. It is a normal EKG. No change from previous. Discharge Plan Discharge Clinical Impression: Chest pain Patient Disposition: Home, Self-Care Additional Instructions: Testing in the emergency room today is very reassuring. I think it is very unlikely that your symptoms today were related to a heart attack or the warning of a heart attack. Please continue your regular medication. please keep your upcoming appointment with your regular doctor. Return to the emergency room if significantly worse. Prescriptions: No Action Repatha SureClick 140 mg/mL pen injector 140 mg subcut Q2W 90 Days Qty: 7 3RF aspirin 81 mg tablet,delayed release (DR/EC) 81 mg PO DAILY Qty: 90 3RF pantoprazole 40 mg tablet,delayed release (DR/EC) 40 mg PO BID amlodipine 2.5 mg tablet 2.5 mg PO DAILY alprazolam 0.25 mg tablet 0.25 mg PO BID PRN hyoscyamine sulfate 0.125 mg tablet, sublingual 0.125 - 0.25 mg sublingual Q4H PRN (Reason: abdominal pain) finasteride 5 mg tablet 5 mg PO BEDTIME tamsulosin 0.4 mg capsule 0.4 mg PO BEDTIME famotidine 40 mg tablet 40 mg PO DAILY montelukast 10 mg tablet 10 mg PO DAILY Referrals: Socrates Garcia MD [Physician] - (chest pain) Interventions: ED Discharge Assessment Last Done: 12/19/24 22:32 Discharge Date/Time: 12/19/24 22:32 Print Language: Greenlandic
[2024-12-19 16:16] VITALS: BP 162/98; PULSE 78; RESP 18; TEMP 36.7; O2SAT 95; BMI 28.3
[2024-12-19 16:31] LABS: Basophils Absolute Auto 0.1 X10*3/uL (0.0-0.2); Basophils Percent Auto 1.1 % (0-2); Eosinophils Absolute Auto 0.1 X10*3/uL (0.0-0.4); Eosinophils Percent Auto 1.7 % (0-4); Hemoglobin 15.8 g/dl (14.0-18.0); Imm Gran Abs Auto 0.05 X10*3/uL (0.00-0.03); Imm Gran Pct Auto 0.8 % (0.0-0.4); Lymphocytes Absolute Auto 1.4 X10*3/uL (1.2-4.9); Lymphocytes Percent Auto 21.7 % (20-40); MANUAL DIFF FLAG NO; Mean Corpuscular HGB Conc 33.6 g/dl (31.0-36.0); Mean Corpuscular Hemoglobin 30.2 pg (27.0-33.0); Mean Corpuscular Volume 89.7 fL (80.0-98.0); Mean Platelet Volume 9.4 fL (9.4-12.4); Monocytes Absolute Auto 0.6 X10*3/uL (0.1-1.2); Monocytes Percent Auto 9.3 % (2-11); Neutrophils Absolute Auto 4.2 x10*3/uL (2.0-8.3); Neutrophils Percent Auto 65.4 % (45-73); Platelet Count 235 X10*3/uL (160-400); Red Blood Count 5.24 X10*6/uL (4.60-5.80); Red Cell Distribution Width 12.6 % (11.0-16.0); White Blood Count 6.5 X10*3/uL (4.8-10.8)
[2024-12-19 16:52] LABS: B Type Natriuretic Peptide < 10 pg/mL (<100)
[2024-12-19 16:55] LABS: Alanine Aminotransferase 43 U/L (0-40); Albumin Level 4.3 g/dL (3.5-5.0); Alkaline Phosphatase 90 U/L (39-117); Anion Gap 11 (12-20); Aspartate Amino Transferase 34 U/L (5-37); Bilirubin Total 0.5 mg/dL (0.0-1.0); Blood Urea Nitrogen 18 mg/dL (9-16); Calcium 9.7 mg/dL (8.4-10.2); Carbon Dioxide 27 mmol/L (22-29); Chloride 108 mmol/L (96-108); Creatinine Clr Calc Pharmacy 77.2; Estimated Glomerular Filt Rate > 60; Glucose Random 94 mg/dL (60-115); Potassium 4.6 mmol/L (3.3-5.1); Sodium 141 mmol/L (135-145); Total Protein 7.4 g/dL (6.5-8.0); Troponin-I High Sensitivity 3.3 ng/L (<3.5-35.0)
--- OUTSIDE RECORDS SUMMARY | 2024-12-19 16:55 | XMS_ITS | Patient Health Record ---
[facility] baljeet EstradaGranby Address [address] [place] [address] Care Team Providers Care Sole Leather Cutting Machine Operator Name Role Phone Socrates Garcia MD Primary Care Provider Terrence Rubio Unavailable [phone] Allergies Allergen (clinical drug ingredient) Drug/Non Drug Allergy documented on EMR Reaction Allergy Type Onset Date Status Bactrim Rash Drug Allergy Active Latex Latex Rash Allergy Active Reason For Referral No Information Medications Medication SIG (Take, Route, Frequency, Duration) Notes Start Date End Date Status Pepcid 40 MG 1 tablet at bedtime Orally Once a day for 30 day(s) 05/10/2023 Active Xanax 0.25 MG 1 tablet Orally 05/10/2023 Active Tamsulosin HCl 0.4 MG TAKE 1 CAPSULE BY MOUTH AT BEDTIME Oral for 90 Days Active Pantoprazole Sodium 40 MG Oral for 90 Days Active Montelukast Sodium 10 MG TAKE 1 TABLET B Y MOUTH EVERY DAY Oral for 90 Days Active amLODIPine Besylate 2.5 MG TAKE 1 TABLET BY MOUTH EVERY DAY Oral for 30 Days Active Ammonium Lactate 12 % 1 application Exte rnally Twice a day for 30 days Active Finasteride 5 MG Oral for 90 Days Active Social History Tobacco Use: Social History Observation Description Date Details (start date - stop date) Former Smoker NA - NA Tobacco Use/Smoking Question Answer Notes Are you a: former smoker Additional Findings: Tobacco Non-User Current no n-smoker Alcohol Screen Question Answer Notes Did you have a drink containing alcohol in the p ast year? No Points 0 Interpretation Negative Tobacco use other than smoking: Question Answer Notes Are you an other tobacco user? No Plan Of Treatment Pending Test Test Name Order Date I&D ABSCESS- SIMPLE,SINGLE 023 [id number]- Removal of Foreign Body, Subcut 0 05/29/2023 Insurance Providers Payer Name Payer Address Payer Phone Subscriber Number Group Number Insured Name Patient Relationship to Insured Coverage Start Date Coverage End Date Medicare National Govt Svcs [employer] [address] [place] [address] [id number] Gagandeep Machuca Self - patient is the insured [employer] [address] [place] [address] [id number] Gagandeep Machuca Self - patient is the insured Medical (General) History Medical History History ICD Code Anxiety asthma CAD (Cholesterol) Hiatal hernia High blood pressure Warts Measles Mumps Chicken pox Surgical History Surgery Date(Month/Year) left shoulder 03/2020 knee surgery, right 03/2004
--- OUTSIDE RECORDS SUMMARY | 2024-12-19 16:55 | XMS_ITS | Patient Health Record ---
Author Organization [facility] Address [address] [place] [address] Care Team Providers Care Brand Advocate Name Role Phone Socrates Garcia MD Primary Care Provider Demetrius Oneil Unavailable [phone] Allergies Allergen (clinical drug ingredient) Drug/Non Drug Allergy documented on EMR Reaction Allergy Type Onset Date Status Sulfa Unknown Drug Allergy Active bee stings,orta-lilies (uncoded) Unknown Allergy Active Reason For Referral No Information Medications Medication SIG (Take, Route, Frequency, Duration) Notes Start Date End Date Status Protonix 40 MG 1 tablet Orally Once a day Active Xanax 0.25 MG 1 tablet Orally Twic e a day/prn Active Albuterol Sulfate (2.5 MG/3ML) 0.083% Inhalation Active ALPRAZolam 0.25 MG Orally A ctive EPINEPHrine 0.3 MG/DOSE Injection Active Vitamin D3 50 MCG (1999) Orally Active Flomax 0.4 MG 1 capsule Orally Onc e a day Active Hyoscyamine Sulfate 0.125 MG DISSOLVE 1 TO 2 TABLETS UNDER THE TONGUE EVERY 4 HOURS NEEDED FOR ABDOMINAL DISCOMFORT for 11 Active Pantoprazole Sodium 40 MG TAKE 1 TABLET BY MOUTH TWICE DAILY Orally Twice a day for 30 days Active Famotidine 40 MG TAKE 1 TABLET BY DAPHNIE TH EVERY DAY AT BEDTIME for 30 Active Praluent 75 MG/ML Subcutaneous for 28 Active Aspirin Low Dose 81 MG TAKE 1 TABLET BY MOUTH EVERY DAY Oral for 90 Active Finasteride 5 MG TAKE 1 TABLET BY DAPHNIE TH EVERY NIGHT Oral for 90 Active predniSONE 20 MG Orally Not -Taking Immunizations Vaccine Route Administration Date Status Comme nts Influenza Unknown 07/08/2018 Administered Influenza Unknown 06/08/2020 Administered Social History Tobacco Use: Social History Observation Description Date Details (start date - stop date) Former Smoker NA - NA Tobacco Use/Smoking Question Answer Notes Patient is a former smoker How long has it been since you last smoked? > 10 years Alcohol Screen Question Answer Notes Did you have a drink containing alcohol in the p ast year? No Points 0 Interpretation Negative Section Notes: Nonsmoker; no sig alcohol Nonsmoker; no sig alcohol Nonsmoker; no sig alcohol Nonsmoker; no sig alcohol Problems Problem Type SNOMED Code ICD Code Onset Dates Problem Status W/U Status Risk Notes Problem 099657114 Encounter for screening for malignant neoplasm of colon (Z12.11) Active confirmed Problem 749395875 History of adenomatous polyp of colon (Z86.010) Active confirmed Problem 82292966 Abdominal pain, epigastric (R10.13) Active confirmed Problem 751800822 Family history of colon cancer (Z80.0) Active confirmed Problem 08220574 Hiatal hernia (K44.9) Active confirmed Problem 432998863 Reflux esophagitis (K21.0) Active confirmed Problem 821494785 Abdominal pain, generalized (R10.84) Active confirmed Problem 92148261260226620 Abnormal ultrasound of abdomen (R93.5) Active confirmed Problem Gastroesophageal reflux disease with esophagitis (disorder) (423051564) Gastro-esophag eal reflux disease with esophagitis, without bleeding (K21.00) Active confirmed Encounters Encounter Location Date Provider Diagnosis [facility] [address] [place] [address] 05/20/2024 Demetrius Riojas Plan Of Treatment Pending Test Test Name Order Date CHEM 7 PROFILE 07/01/2023 LIVER PROFILE 07/01/2023 LIVER PROFILE 05/01/2023 CBC w DIFF 05/01/2023 CT ABD & PELVIS WITH CONTRAST 07/01/2023 Amylase 05/01/2023 Lipase 05/01/2023 CT abdomen pelvis w con 08/02/2023 US abdomen complete 05/01/2023 Future Test Test Name Order Date UPPER GI ENDOSCOPY 09/06/2018 COLONOSCOPY 03/03/2021 Insurance Providers Payer Name Payer Address Payer Phone Subscriber Number Group Number Insured Name Patient Relationship to Insured Coverage Start Date Coverage End Date MEDICARE OF [place] [address] [place] [address] [place] [address] [phone] [id number] JOAQUIN NASSAR Self - patient is the insured [employer] ATT[employer] CLAIMS [address] [place] [address] [id number] KENYACASIE AquinoJOAQUIN Self - patient is the insured Medical (General) History Medical History History ICD Code Denies [place],DM,CVA,Lung disease,renal dise ase Asthma Negative colonoscopy in 01/2011 GERD---Negative upper endoscopy in 1 IBS Anxiety Hyperlipidemia EGD in December of 2018 reveale d a small to moderate-sized hiatal hernia, mild erosive esophagitis, and gastritis--biopsies were negative for Garcia's esophagus and negative for H. pylori Negative abdominal ultrasound 09/2018 Hypertension Arthritis Environmental allergies with hx of anaph ylaxis Screening Colonoscopy in March of 2021-a single tubular was removed Negative abdominal ultrasoun d and negative abdominal CT scan in the fall for evaluation of abdominal pain Surgical History Surgery Date(Month/Year) Right knee arthroscopy Left rotator cuff surgery March,
--- OUTSIDE RECORDS SUMMARY | 2024-12-19 16:55 | XMS_ITS ---
Author Organization [facility] Address [address] [place] [phone] Care Team Providers Care Compliance Engineer Name Role Phone Socrates Garcia MD Primary Care Provider UnavailDemetrius Summers [phone] Problems Problem Type SNOMED Code ICD Code Onset Dates Problem Status W/U Status Risk Notes Problem [id number] Abnormal ultrasound of abdomen (R93.5) Active confirmed Encounters Encounter Location Date Provider Diagnosis [facility] [address] [place] [phone] 07/01/2023 Demetrius Riojas Abdominal pain, generalized R10.84 and Abnormal ultrasound of abdomen R93.5 Assessments Encounter Date Diagnosis (ICD Code) Assessment Notes Treatment Notes Treatment Clinical Notes Section Notes 07/01/2023 Abdominal pain, generalized (ICD-10 - R10.84) 07/01/2023 Abnormal ultrasound of abdomen (ICD-10 - R93.5) Plan Of Treatment Pending Test Test Name Order Date CHEM 7 PROFILE 07/01/2023 LIVER PROFILE 07/01/2023 CT ABD & PELVIS WITH CONTRAST 07/01/2023 Progress Notes * JOAQUIN CRAIN HDOB: [birth year] (72 yo M)Acc No.[id number]:07/01/2023 Patient:?JOAQUIN CRAIN :1950???Age:72 Y???Sex:Male Address:[address] , [address], [place] [address] Subjective: * Chief Complaints: * ??? * Medical History:? * Surgical History:? * Hospitalization/Major Diagno stic Procedure:? * Medications:? Objective: Assessment: * Assessment: 1.?Abdominal pain, generaliz ed - R10.84 (Primary)?2.?Abnormal ultrasound of abdomen - R93.5? Plan: * Treatment: * 2.?Abnormal ultrasound of abdomen?LAB: CHEM 7 PROFILE ?LAB: LIVER PROFILE ?Imaging: CT ABD & PELVIS WITH CONTRAST* with IV and oral contrast.Roya Nelson 07/02/2023 08:33:48 AM EDT > This was faxed to [facility] and I will call them to book for the pt. Alessia delgado at [facility] central booking said that this test needs to be protocoled and that they call the pt to schedule the Ct scan. ThanksRoya Pelaez 07/09/2023 08:00:23 AM EDT > The pt's Ct scan is scheduled for 08/02/23 at 11am per Gema at central scheduling at the [facility] and I will mail the pt the lab slip to have done as well. Thanks * * Procedure Codes:? * true * Date:? Generated for Wanda warner/Yordy/eTransmitting on:?12/19/2024 04:55 PM EDT
--- OUTSIDE RECORDS SUMMARY | 2024-12-19 16:55 | XMS_ITS ---
Author Organization [facility] Address [address] [place] [phone] Care Team Providers Care Transverse Abdominal Muscle Surgeon Name Role Phone Socrates Garcia MD Primary Care Provider Demetrius Oneil [phone] REASON FOR VISIT increased pantoprazole/needs r/f Medications Medication SIG (Take, Route, Frequency, Duration) Notes Start Date End Date Status Pantoprazole Sodium 40 MG TAKE 1 TABLET BY MOUTH TWICE DAILY Orally Twice a day for 30 days Active Encounters Encounter Location Date Provider Diagnosis [facility] [address] [place] [phone] 05/20/2024 Demetrius Riojas Plan Of Treatment Medication Medication Name Sig Start Date Stop Date Notes Pantoprazole Sodium 40 MG TAKE 1 TABLET BY MOUTH TWICE DAILY Orally Twice a day for 30 days Progress Notes * JOAQUIN CRAIN HDOB: [birth year] (73 yo M)Acc No.[id number]:05/20/2024 Patient:?JOAQUIN CRAIN :1950???Age:73 Y???Sex:Male Address:[address] , [address], [place] [address] * Refills? Refill Pantoprazole Sodium Tablet Delayed Release, 40 MG, Orally, 60, TAKE 1 TABLET BY MOUTH TWICE DAILY, Twice a day, 30 days, Refills=11 * true * Date:? Generated for Deyanirai timmy/Yordy/eTransmitting on:?12/19/2024 04:54 PM EDT
--- OUTSIDE RECORDS SUMMARY | 2024-12-19 16:55 | XMS_ITS ---
[facility] baljeet Monroe Address [address] [place] [address] Care Team Providers Care Dump Truck Operator Name Role Phone Socrates Garcia MD Primary Care Provider Terrence Rubio Unavailable [phone] Allergies Allergen (clinical drug ingredient) Drug/Non Drug Allergy documented on EMR Reaction Allergy Type Onset Date Status Bactrim Rash Drug Allergy Active Latex Latex Rash Allergy Active REASON FOR VISIT Possible Infection, Skin problem(s) Medications Medication SIG (Take, Route, Frequency, Duration) Notes Start Date End Date Status Pepcid 40 MG 1 tablet at bedtime Orally Once a day for 30 day(s) 05/10/2023 Active Xanax 0.25 MG 1 tablet Orally Tw day 05/10/2023 Active Tamsulosin HCl 0.4 MG TAKE [...] Are you an other tobacco user? No Vital Signs Height 5ft 10in in 08/13/2023 Weight 200 lbs 08/13/2023 BMI 28.69 kg/m2 08/13/2023 Procedures Procedure Date Ordered Date Performed Result Body Sit e 30645 I&D ABSCESS- SIMPLE,SINGLE 08/13/2023 N/A Encounters Encounter Location Date Provider Diagnosis [facility] [place] [address] [facility] [address] [place] [address] 08/13/2023 Terrence Zarateier Abscess of toe, left L02.612 and Xerosis of skin L85.3 Assessments Encounter Date Diagnosis (ICD Code) Assessment Notes Treatment Notes Treatment Clinical Notes Section Notes 08/13/2023 Abscess of toe, left (ICD-10 - L02.612) Patient Educated with: WOUND CARE INSTRUCTIONS.p df (WOUND CARE INSTRUCTIONS.p df) 08/13/2023 Xerosis of skin (ICD-10 - L85.3) Plan Of Treatment Medication Medication Name Sig Start Date Stop Date Notes Ammonium Lactate 12 % 1 application Exte rnally Twice a day for 30 days Treatment Notes Assessment Notes Abscess of toe, left Patient Educated wi th: WOUND CARE INSTRUCTIONS.pdf (WOUND CARE INSTRUCTIONS.pdf) Pending Test Test Name Order Date 42608 I&D ABSCESS- SIMPLE,SINGLE 023 Next Appt Details Follow Up: prn, Reason: Procedure Notes * Category Sub-Category Detail Notes I&D nail abscess Location Lateral nail bety rder , TA Procedure Performed incision a nd drainage of Single Nail Abscess with use of sterile nail nipper/316 blade. Approximately ( 0.1 ) cc purulent fluid material was drained. The infected devitalized soft tissue was curettaged to healthy bleeding bed. Any affected nail portion was removed to the eponychium . Any evidence of granuloma was also removed at this time. No underlying bone was visualized. There was minimal bleeding as hemostasis was achieved through the temporary use of either a digital tournaquet or the aforementioned local with epinephrine. An application of sterile Bacitracin dressing was performed. Local wound care instructions were discussed and dispensed (43158) Type Single, Abscess Anesthesia 3 cc of 1 percent Li docaine Plain local anesthesic utilizing aseptic technique Progress Notes * Bret RIOJAS: 9 (72 yo M)Acc No.[id number]:08/13/2023 Progress Note Patient:?Gagandeep Riojas Number:[id number] Provider:?Terrence Scott DPM :1950???Age:72 Y???Sex:Male Len e:08/13/2023 Address: [facility] [address], [place], [place] Pcp:Socrates Garcia MD Subjective: * Chief Complaints: * ???Possible InfectionSkin pr oblem(s) * HPI: ???Skin problems:?Location:?B/L .?Duration:?several days.?Course:?worse.? * ROS:?General/Constitutional:?Nausea?admits.?Vomiting?denies.?Hunger Thirst?denies.?Loss appetite?denies.?Chills?denies.?Fatigue?denies.?Fever?denies.?Night Sweats?denies.?Unexplained weight loss?denies.?Unexplained weight gain?denies.?HEENTM:?Dentures?denies.?Dizziness?denies.?Glasses/contacts?admits.?Retinopathy?de nies.?Blurred/double vision?denies.?TMJ?denies.?Discharge/drainage?denies.?Implants?denies.?Sore throat?denies.?Dental implants?denies.?Hard of hearing ?admits.?Difficulty chewing/swallowing/speaking?denies.?Nose bleeds?denies.?Sore mouth?denies.?Respiratory:?On Oxygen?denies.?Pneumonia/pleurisy?denies.?Bronchitis?denies.?Emphysema?denies.?C oughing?denies.?Cough blood?denies.?Shortness of breath?denies.?Wheezing?admits.?Cardiovascular:?Pacemaker?denies.?MVP?denies.?WPW?denies.?CHF?denies.?Heart attack?denies.?Septal defect?denies.?Rapid beat?denies.?Chest pain ?denies.?Atrial Fib.?denies.?Murmur/Palpitations?admits.?Gastrointestinal:?Hemorrhoids?denies.?Stomach/Abdominal pain?admits.?Dark blood stool?denies.?Irritable bowel ?denies.?Constipation?denies.?Diarrhea?denies.?Hematology:?Swelling?denies.?Clots?denies.?Varicose Veins?denies.?Bruising?denies.?Bleeding problem?denies.?Genitourinary:?Blood urine?denies.?Frequent/Painfu/urination/bladder control?denies.?Kidney stones?admits.?Infection (UTI)?denies.?Nephropathy?denies.?sex trans dis (STD)?denies.?Prostate?admits.?Musculoskeletal:?Hammertoes?denies.?Bunions?denies.?Back Pain?denies.?Muscle Cramps/ Resting?admits.?Muscle cramps / walking?denies.?Generalized aches and pains?denies.?Weakness?denies.?Integ.:?Mancera?denies.?Scars?denies.?Corns/calluses?denies.?Ingrown nails?admits.?Painful nails?denies.?Open Sores?denies.?Rashes?denies.?Neurologic:?Difficulty sleeping?denies.?Brain disorder?denies.?Numbness?admits.?Balance trouble?denies.?Confusion?denies.?Fainting/blackouts?denies.?Tingling?denies.?Tr emors?denies.? * Medical History:? * Surgical History:?left shoul anita 03/2020knee surgery, right 03/2004 * Hospitalization/Major Diagno stic Procedure:?No Hospitalization History. * Family History:?Mother: dece ased, foot problems, diagnosed with Unspecified essential hypertension.?Father: , foot problems, diagnosed with Unspecified essential hypertension.? * Social History:?Tobacco Use:?Tobacco Use/Smoking?Are you a:?former smoker ?Additional Findings: Tobacco Non-User?Current non-smoker ?Tobacco use other than smoking?Are you an other tobacco user??No ???Drugs/Alcohol:?Drugs?Have you used drugs other than those for medical reasons in the past 12 months??No ?Alcohol Screen?Did you have a drink containing alcohol in the past year??No ?Points?0 ?Interpretation?Negative ???Miscellaneous:?Caffeine: yes. ?no Children. ?no Exercise. ?Marital status: . 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 * Medications:?TakingFinasteri de 5 MG Tablet Oral amLODIPine Besylate 2.5 MG Tablet TAKE 1 TABLET BY MOUTH EVERY DAY Oral Montelukast Sodium 10 MG Tablet TAKE 1 TABLET BY MOUTH EVERY DAY Oral Tamsulosin HCl 0.4 MG Capsule TAKE 1 CAPSULE BY MOUTH AT BEDTIME Oral Xanax 0.25 MG Tablet 1 tablet Orally Twice a dayPepcid 40 MG Tablet 1 tablet at bedtime Orally Once a dayPantoprazole Sodium 40 MG Tablet Delayed Release Oral Medication List reviewed and reconciled with the patientTaking Finasteride 5 MG Tablet Oral Taking amLODIPine Besylate 2.5 MG Tablet TAKE 1 TABLET BY MOUTH EVERY DAY Oral Taking Montelukast Sodium 10 MG Tablet TAKE 1 TABLET BY MOUTH EVERY DAY Oral Taking Tamsulosin HCl 0.4 MG Capsule TAKE 1 CAPSULE BY MOUTH AT BEDTIME Oral Taking Xanax 0.25 MG Tablet 1 tablet Orally Twice a dayTaking Pepcid 40 MG Tablet 1 tablet at bedtime Orally Once a dayTaking Pantoprazole Sodium 40 MG Tablet Delayed Release Oral Medication List reviewed and reconciled with the patient * Allergies:?Bactrim: RashLate x: Rashyes[Allergies Verified] Objective: * Vitals:?Ht: 5ft 10in, Wt:200 , BMI:28.69, Shoe size: 9.5, Ht-cm: 177.8 cm, Wt-k.72 kg. * Examination: ???Abscess/infected nail: ?INSPECTION?Reveals nail incurvation, pain on palpation, groove laceration, inflammation, malodor, localized cellulitis, and purulent abscess with pre- operative size of approximately ( 1-2 ) mm square without exposed bone , Lateral nail border , TA.?General Examination: ?GENERAL APPEARANCE:?Denies fever, chills, malaise, lymphadenopathy.?Dermatologic: ?SKIN FINDINGS:?Skin shows sign(s) of, dryness, scaling, in a stocking fashion, no fissure(s) present, B/L.? Assessment: * Assessment: 1.?Abscess of toe, left - L0 2.612 (Primary)?2.?Xerosis of skin - L85.3, Acute problem, Uncomplicated (3),Rx Management (4)? Plan: * Treatment: 2.?Xerosis of skin? Start Ammonium Lactate Cream, 12 %, 1 application, Externally, Twice a day, 30 days, 60, Refills 2.?? * Procedures:?I&D nail abscess:?Type?Single, Abscess.?Anesthesia?3 cc of 1 percent?Lidocaine Plain local anesthesic utilizing aseptic technique.?Location?Lateral nail border?,?TA.?Procedure?Performed incision and drainage of Single Nail Abscess with use of sterile nail nipper/316 blade. Approximately ( 0.1 ) cc purulent fluid material was drained. The infected devitalized soft tissue was curettaged to healthy bleeding bed. Any affected nail portion was removed to the eponychium . Any evidence of granuloma was also removed at this time. No underlying bone was visualized. There was minimal bleeding as hemostasis was achieved through the temporary use of either a digital tournaquet or the aforementioned local with epinephrine. An application of sterile Bacitracin dressing was performed. Local wound care instructions were discussed and dispensed (98383).? * Procedure Codes:?23010 DRAIN AGE OF SKIN ABSCESS, Modifiers: TA * Preventive Medicine:? ??Counseling:?Discussion:?-13: Office or other outpatient visit for the evaluation and management of an established patient, which required a medically appropriate history and/or examination and LOW level of DECISION MAKING for: 1 STABLE ACUTE UNCOMPLICATED PROBLEM, 2 OR MORE MINOR PROBLEMS, OR 1 STABLE CHRONIC PROBLEM, THAT POSE(S) A LOW RISK FOR MORBIDITY/MORTALITY. The visit on the day of the encounter encompassed interpreting the data and educating the patient as to the nature of their condition, treatment options available according to their individual PMH, meds, allergies, and overall health/living conditions, as well as any potential risks or complications that may occur from a failure to adhere to, and participate in, the recommended course of therapy. The discussion included a complete verbal, and/or written explanation of the examination results, any x-rays taken, the proposed diagnosis, and outline of the treatment plan. A schedule for future care needs was also explained. The patient verbalized an understanding of the instructions at this time and agreed to be an active participant in their treatment. If the patient should think of any questions or concerns after the visit, I have encouraged the patient to call the office.?Xerosis:?The patient was counseled on the diagnosis, potential etiologies, and treatment options for their skin condition. We discussed the risks and benefits of each option from performing no treatment, to utilizing OTC topical skin creams/ointments, to utilizing prescription topical creams/ointments, to utilizing customized compounded topical medications and use of nocturnal occlusion with any/all previously detailed therapies. We discussed the advantages and disadvantages of each possible treatment and importance for adherence to all the recommended therapies for optimum success and avoid potential complications such as open sore/infection/possible hospitalization. We discussed the potential effectiveness of each topical preparation as well as each ones possible side effects and/or patient medication interactions. Patient questions re: use, dosage, successful outcomes, and application consistency were reviewed and the patient verbalized that all answers were clearly understood. The patient has decided to apply Rx skin creams to their feet save the interspaces while paying special attention to the heels. Such was sent to their pharmacy at the time of visit.? * Follow Up:?prn * Images: * Sign off status: Completed true * Provider:?Terrence Scott DPM Date:?2022 Generated for Wanda warner/Yordy/Courtney on:?12/19/2024 04:55 PM EDT History and Physical Notes * HPI (History of Present Illness) Category Sub-Category Detail Notes Category Not es Skin problems Location: B/L Duration: several days Course: worse Examination Category Sub-Category Detail Notes Category Not es Dermatologic SKIN FINDINGS: Skin shows sign( s) of, dryness, scaling, in a stocking fashion, no fissure(s) present, B/L General Examination GENERAL APPEARANCE: Denies f ever, chills, malaise, lymphadenopathy Abscess/infected nail INSPECTION Reveals na il incurvation, pain on palpation, groove laceration, inflammation, malodor, localized cellulitis, and purulent abscess with pre-operative size of approximately ( 1-2 ) mm square without exposed bone , Lateral nail border , TA
--- OUTSIDE RECORDS SUMMARY | 2024-12-19 16:55 | XMS_ITS ---
Author Organization [facility] Address [address] [place] [id number] Care Team Providers Care Genetic Scientist Name Role Phone Socrates Garcia MD Primary Care Provider Demetrius Oneil Unavailable [phone] Allergies Allergen (clinical drug ingredient) Drug/Non Drug Allergy documented on EMR Reaction Allergy Type Onset Date Status Sulfa Unknown Drug Allergy Active bee stings,orta-lilies (uncoded) Unknown Allergy Active REASON FOR VISIT Patient presents today for epigastric pain Medications Medication SIG (Take, Route, Frequency, Duration) Notes Start Date End Date Status ALPRAZolam 0.25 MG Orally A ctive Flomax 0.4 MG 1 capsule Orally Onc e a day Active Praluent 75 MG/ML Subcutaneous for 28 Active Aspirin Low Dose 81 MG TAKE 1 TABLET BY MOUTH EVERY DAY Oral for 90 Active Finasteride 5 MG TAKE 1 TABLET BY DAPHNIE TH EVERY NIGHT Oral for 90 Active predniSONE 20 MG Orally Not -Taking Protonix 40 MG 1 tablet Orally Once a day Active Xanax 0.25 MG 1 tablet Orally Twic e a day/prn Active Albuterol Sulfate (2.5 MG/3ML) 0.083% Inhalation Active EPINEPHrine 0.3 MG/DOSE Injection Active Vitamin D3 50 MCG (1999) Orally Active Social History Tobacco Use: Social History [...] Negative Section Notes: Nonsmoker; no sig alcohol Problems Problem Type SNOMED Code ICD Code Onset Dates Problem Status W/U Status Risk Notes Problem [id number] History of adenomatous polyp of colon (Z86.010) Active confirmed Problem Gastroesophageal reflux disease with esophagitis (disorder) (101298972) Gastro-esophag eal reflux disease with esophagitis, without bleeding (K21.00) Active confirmed Vital Signs Temperature 97.3 degrees Fahrenheit 10/02/20 23 Blood pressure systolic 000 mm Hg 10/02/20 23 Blood pressure diastolic 00 mm Hg 023 Height 70 in 10/02/2023 Weight 192 lbs 10/02/2023 BMI 27.55 kg/m2 10/02/2023 Encounters Encounter Location Date Provider Diagnosis [facility] [address] [place] [address] 10/02/2023 Demetrius Riojas Abdominal pain, epigastric R10.13 ; History of adenomatous polyp of colon Z86.010 and Reflux esophagitis K21.0 Assessments Encounter Date Diagnosis (ICD Code) Assessment Notes Treatment Notes Treatment Clinical Notes Section Notes 10/02/2023 Abdominal pain, epigastric (ICD-10 - R10.13) Try to decrease Pronix to 40mg once a day and continue the daily Famotidine. Continue the Hyoscyamine for the abdominal discomfort Repeat colonoscopy in 2025 Overall, Gagandeep appears quite well. We did review the findings on his colonoscopy from 2020 in regard to the tubular adenoma that was removed and the need for a followup colonoscopy in 2025. His upper GI symptoms seem stable in regard to his reflux on a high dose of Protonix and daily famotidine. I advised him that he should try to use Protonix just once a day along with a daily famotidine to see if that would suffice to keep his reflux symptoms stable. I advised him that he could always resume the higher dose of Protonix if need be. In regard to his previous abdominal discomfort this seems to have resolved and remained stable with the use of hyoscyamine as an antispasmodic. His workup with imaging studies and laboratories was otherwise nonrevealing. I don't think any further studies are needed at this time. This appears to have been related to some irritable bowel syndrome and intestinal spasm given the good relief on the antispasmodic. If things remain well I advised him to see me in 2025 for a followup colonoscopy. I did advise him to call sooner if has any problems or questions I can be of assistance with. Gagandeep was comfortable with this plan. Thank you again for allowing me to participate in Gagandeep's care. I shall continue to keep you advised of his progress. 10/02/2023 History of adenomatous polyp of colon (ICD-10 - Z86.010) Overall, Gagandeep appears quite well. We did review the findings on his colonoscopy from 2020 in regard to the tubular adenoma that was removed and the need for a followup colonoscopy in 2025. His upper GI symptoms seem stable in regard to his reflux on a high dose of Protonix and daily famotidine. I advised him that he should try to use Protonix just once a day along with a daily famotidine to see if that would suffice to keep his reflux symptoms stable. I advised him that he could always resume the higher dose of Protonix if need be. In regard to his previous abdominal discomfort this seems to have resolved and remained stable with the use of hyoscyamine as an antispasmodic. His workup with imaging studies and laboratories was otherwise nonrevealing. I don't think any further studies are needed at this time. This appears to have been related to some irritable bowel syndrome and intestinal spasm given the good relief on the antispasmodic. If things remain well I advised him to see me in 2025 for a followup colonoscopy. I did advise him to call sooner if has any problems or questions I can be of assistance with. Gagandeep was comfortable with this plan. Thank you again for allowing me to participate in Gagandeep's care. I shall continue to keep you advised of his progress. 10/02/2023 Reflux esophagitis (ICD-10 - K21.0) Overall, Gagandeep appears quite well. We did review the findings on his colonoscopy from 2020 in regard to the tubular adenoma that was removed and the need for a followup colonoscopy in 2025. His upper GI symptoms seem stable in regard to his reflux on a high dose of Protonix and daily famotidine. I advised him that he should try to use Protonix just once a day along with a daily famotidine to see if that would suffice to keep his reflux symptoms stable. I advised him that he could always resume the higher dose of Protonix if need be. In regard to his previous abdominal discomfort this seems to have resolved and remained stable with the use of hyoscyamine as an antispasmodic. His workup with imaging studies and laboratories was otherwise nonrevealing. I don't think any further studies are needed at this time. This appears to have been related to some irritable bowel syndrome and intestinal spasm given the good relief on the antispasmodic. If things remain well I advised him to see me in 2025 for a followup colonoscopy. I did advise him to call sooner if has any problems or questions I can be of assistance with. Gagandeep was comfortable with this plan. Thank you again for allowing me to participate in Gagandeep's care. I shall continue to keep you advised of his progress. Plan Of Treatment Treatment Notes Assessment Notes Abdominal pain, epigastric Try to decrease Pronix to 40mg once a day and continue the daily Famotidine. Continue the Hyoscyamine for the abdominal discomfort Repeat colonoscopy in 2025 Next Appt Details Follow Up: prn, Reason: Progress Notes * GAGANDEEP CRAIN HDOB: [birth year] (73 yo M)Acc No.[id number]:10/02/2023 Progress Notes Patient:?GAGANDEEP CRAIN Provider:?Demetrius Riojas MD :1950???Age:73 Y???Sex:Male Len e:10/02/2023 Address:[address] [place] [address] , [address] Pcp:Socrates Garcia MD Subjective: * Chief Complaints: * ???Patient presents today fo r epigastric pain * HPI: ???incontinence:? I saw Gagandeep in the office today for evaluation of abdominal pain, personal history of a tubular adenoma of the colon, and reflux. ?I last saw Gagandeep March of 2021, at which time he underwent a screening colonoscopy with removal of a tubular adenoma. He does have a history of reflux for which he has maintained himself on two 40 mg Protonix every day along with a 40 mg famotidine later in the day. He had been doing well but over the past few months had been having some upper abdominal and mid-abdominal discomfort. A workup for that with an abdominal ultrasound and CT scan was unrevealing other than some fatty liver and small benign-appearing cysts in the pancreas and kidney which did not appear worrisome. There was no evidence of gallstones. I also checked laboratories which revealed normal LFTs and pancreatic enzymes. I ultimately started him on hyoscyamine which he has been using either daily or p.r.n. with good relief of the abdominal discomfort. He does continue on the same regimen for his acid reflux. ?He reports his bowel movements have been regular and without any signs of bleeding. He denies any signs of jaundice, weight loss, nor fevers. He enjoys a good appetite, without any dysphagia, early satiety, nausea, nor vomiting. * ROS:?General/Constitutional:?Change in appetite?denies.?Chills?denies.?Fatigue?denies.?Ophthalmologic:?Comments?all negative.?ENT:?Comments?all negative.?Respiratory:?hemoptysis?denies.?Cough?denies.?Cardiovascular:?Chest pain?denies.?Orthopnea?denies.?Gastrointestinal:?Comments?See HPI for details.?Genitourinary:?Hematuria?denies.?Dysuria?denies.?Musculoskeletal:?Painful joints?denies.?Weakness?denies.?Skin:?Itching?denies.?Rash?denies.?Neurologic:?Headache?denies.?Seizures?denies.?Psychiatric:?Comments?all negative.? * Medical History:? * Surgical History:?Right knee arthroscopy Left rotator cuff surgery March, * Hospitalization/Major Diagno stic Procedure:?No Hospitalization History. * Family History:?Father: dece ased, diagnosed with HTN (hypertension).?Mother: , diagnosed with HTN (hypertension).?Siblings: alive, sister , diagnosed with Diabetes, HTN (hypertension).?Maternal Grand Mother: diagnosed with Diabetes.? Paternal Great-grandfather and 2 Paternal Great-uncles had colon cancer between their 50's and 70's. * Social History:?Tobacco Use:?Tobacco Use/Smoking?Patient is a?former smoker,?How long has it been since you last smoked??> 10 years.?Drugs/Alcohol:?Alcohol Screen?Did you have a drink containing alcohol in the past year??No,?Points?0,?Interpretation?Negative.?Miscellaneous:?Marital status: . 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 ???Nonsmoker; no sig alcohol. * Medications:?TakingProtonix 40 MG Tablet Delayed Release 1 tablet Orally Once a dayXanax 0.25 MG Tablet 1 tablet Orally Twice a day/prnAlbuterol Sulfate (2.5 MG/3ML) 0.083% Nebulization Solution Inhalation EPINEPHrine 0.3 MG/DOSE Device Injection Vitamin D3 50 MCG (2000 UT) Capsule Orally Flomax 0.4 MG Capsule 1 capsule Orally Once a dayPraluent 75 MG/ML Solution Auto-injector Subcutaneous Aspirin Low Dose 81 MG Tablet Delayed Release TAKE 1 TABLET BY MOUTH EVERY DAY Oral Finasteride 5 MG Tablet TAKE 1 TABLET BY MOUTH EVERY NIGHT Oral ALPRAZolam 0.25 MG Tablet Orally Taking Protonix 40 MG Tablet Delayed Release 1 tablet Orally Once a dayTaking Xanax 0.25 MG Tablet 1 tablet Orally Twice a day/prnTaking Albuterol Sulfate (2.5 MG/3ML) 0.083% Nebulization Solution Inhalation Taking EPINEPHrine 0.3 MG/DOSE Device Injection Taking Vitamin D3 50 MCG (2000 UT) Capsule Orally Taking Flomax 0.4 MG Capsule 1 capsule Orally Once a dayTaking Praluent 75 MG/ML Solution Auto- injector Subcutaneous Taking Aspirin Low Dose 81 MG Tablet Delayed Release TAKE 1 TABLET BY MOUTH EVERY DAY Oral Taking Finasteride 5 MG Tablet TAKE 1 TABLET BY MOUTH EVERY NIGHT Oral Taking ALPRAZolam 0.25 MG Tablet Orally Not-Taking/PRNpredniSONE 20 MG Tablet Orally Not-Taking/PRN predniSONE 20 MG Tablet Orally DiscontinuedVentolin HFA 108 (90 Base) MCG/ACT Aerosol Solution 2 puffs as needed Inhalation every 6 hrsSingulair 10 MG Tablet 1 tablet Orally Once a dayamLODIPine Besylate 2.5 MG Tablet Orally Montelukast Sodium 10 MG Tablet Orally Tamsulosin HCl 0.4 MG Capsule Orally Omeprazole 20 MG Capsule Delayed Release Orally Famotidine 40 MG Tablet TAKE 1 TABLET BY MOUTH EVERY DAY AT BEDTIME Hyoscyamine Sulfate 0.125 MG Tablet Sublingual DISSOLVE 1 TO 2 TABLETS UNDER THE TONGUE EVERY 4 HOURS NEEDED FOR ABDOMINAL DISCOMFORT Pantoprazole Sodium 40 MG Tablet Delayed Release TAKE 1 TABLET BY MOUTH TWICE DAILY Medication List reviewed and reconciled with the patientDiscontinued Ventolin HFA 108 (90 Base) MCG/ACT Aerosol Solution 2 puffs as needed Inhalation every 6 hrsDiscontinued Singulair 10 MG Tablet 1 tablet Orally Once a dayDiscontinued amLODIPine Besylate 2.5 MG Tablet Orally Discontinued Montelukast Sodium 10 MG Tablet Orally Discontinued Tamsulosin HCl 0.4 MG Capsule Orally Discontinued Omeprazole 20 MG Capsule Delayed Release Orally Discontinued Famotidine 40 MG Tablet TAKE 1 TABLET BY MOUTH EVERY DAY AT BEDTIME Discontinued Hyoscyamine Sulfate 0.125 MG Tablet Sublingual DISSOLVE 1 TO 2 TABLETS UNDER THE TONGUE EVERY 4 HOURS NEEDED FOR ABDOMINAL DISCOMFORT Discontinued Pantoprazole Sodium 40 MG Tablet Delayed Release TAKE 1 TABLET BY MOUTH TWICE DAILY Medication List reviewed and reconciled with the patient * Allergies:?Sulfabee stings,f oksana-rupalis[Allergies Verified] Objective: * Vitals:?Wt: 192 lbs, Ht: 70 in, BMI:27.55 Index, BP: 000/00 mm Hg, Temp: 97.3. * Examination: ???General Examination: ?GENERAL APPEARANCE:?pleasant, well nourished, well developed, in no acute distress.?EYES:?sclera non-icteric.?ORAL CAVITY:?mucosa moist.?NECK/THYROID:?no cervical lymphadenopathy, neck supple.?SKIN:?nonjaundiced, no spider angiomata.?HEART:?S1, S2 normal.?LUNGS:?clear to auscultation bilaterally.?ABDOMEN:?normal bowel sounds, no guarding or rigidity, no guarding or rigidity, no masses palpable, soft, nontender, nondistended.?EXTREMITIES:?no edema.?NEUROLOGIC:?alert and oriented.? Assessment: * Assessment: 1.?Abdominal pain, epigastri c - R10.13 (Primary)?2.?History of adenomatous polyp of colon - Z86.010?3.?Reflux esophagitis - K21.0? Overall, Gagandeep appears quite well. We did review the findings on his colonoscopy from 2020 in regard to the tubular adenoma that was removed and the need for a followup colonoscopy in 2025. His upper GI symptoms seem stable in regard to his reflux on a high dose of Protonix and daily famotidine. I advised him that he should try to use Protonix just once a day along with a daily famotidine to see if that would suffice to keep his reflux symptoms stable. I advised him that he could always resume the higher dose of Protonix if need be. In regard to his previous abdominal discomfort this seems to have resolved and remained stable with the use of hyoscyamine as an antispasmodic. His workup with imaging studies and laboratories was otherwise nonrevealing. I don't think any further studies are needed at this time. This appears to have been related to some irritable bowel syndrome and intestinal spasm given the good relief on the antispasmodic. If things remain well I advised him to see me in 2025 for a followup colonoscopy. I did advise him to call sooner if has any problems or questions I can be of assistance with. Gagandeep was comfortable with this plan. Thank you again for allowing me to participate in Gagandeep's care. I shall continue to keep you advised of his progress. Plan: * Treatment: * Procedure Codes:?3017F COLOR ECTAL CA SCREEN DOC [id number] TOBACCO [id number] BP SCR NOT PRFRM REC REASON NOS * Preventive Medicine:? ??Counseling:?Care goal follow-up plan:?Above Normal BMI Follow-up?Giving encouragement to exercise,?BMI management provided?Yes.? * Follow Up:?prn * * Sign off status: Completed true * Provider:?Demetrius Riojas MD Date:? 023 Generated for Wanda warner/Yordy/Courtney on:?12/19/2024 04:55 PM EDT History and Physical Notes * HPI (History of Present Illness) Category Sub-Category Detail Notes Category Not es incontinence I saw Gagandeep in the office today for evaluation of abdominal pain, personal history of a tubular adenoma of the colon, and reflux. I last saw Gagandeep March of 2021, at which time he underwent a screening colonoscopy with removal of a tubular adenoma. He does have a history of reflux for which he has maintained himself on two 40 mg Protonix every day along with a 40 mg famotidine later in the day. He had been doing well but over the past few months had been having some upper abdominal and mid-abdominal discomfort. A workup for that with an abdominal ultrasound and CT scan was unrevealing other than some fatty liver and small benign-appearing cysts in the pancreas and kidney which did not appear worrisome. There was no evidence of gallstones. I also checked laboratories which revealed normal LFTs and pancreatic enzymes. I ultimately started him on hyoscyamine which he has been using either daily or p.r.n. with good relief of the abdominal discomfort. He does continue on the same regimen for his acid reflux. He reports his bowel movements have been regular and without any signs of bleeding. He denies any signs of jaundice, weight loss, nor fevers. He enjoys a good appetite, without any dysphagia, early satiety, nausea, nor vomiting. Examination Category Sub-Category Detail Notes Category Not es General Examination GENERAL APPEARANCE: pleasant , well nourished, well developed, in no acute distress HEAD: EYES: sclera non-icteric EARS: NOSE: THROAT: NECK/THYROID: no cervical lymphade nopathy, neck supple HEART: S1, S2 normal CHEST: LUNGS: clear to auscultatio n bilaterally ABDOMEN: normal bowel sounds, no guarding or rigidity, no guarding or rigidity, no masses palpable, soft, nontender, nondistended NEUROLOGIC: alert and oriented SKIN: nonjaundiced, no spi anita angiomata EXTREMITIES: no edema PERIPHERAL PULSES: BACK: BREASTS: MUSCULOSKELETAL: MALE GENITOURINARY: LYMPH NODES: RECTAL EXAM: FEMALE GENITOURINARY: ORAL CAVITY: mucosa moist
[2024-12-19 17:09] LABS: Influenza A PCR NEGATIVE (Negative); Influenza B PCR NEGATIVE (Negative); Resp Syncy Virus RNA Qual PCR NEGATIVE (Negative); SARS COV2 PCR INHOUSE NEGATIVE (Negative)
[2024-12-19 20:01] VITALS: BP 153/87; PULSE 68; RESP 18; TEMP 36.3; O2SAT 95
[2024-12-19 22:01] VITALS: BP 149/83; PULSE 64; RESP 18; TEMP 36.2; O2SAT 98
[2024-12-19 22:07] LABS: Troponin-I High Sensitivity 3.2 ng/L (<3.5-35.0)
[2024-12-19 22:32] VITALS: BP 149/83; PULSE 64; RESP 18; TEMP 36.2; O2SAT 98
== END 2024-12-19 22:32 | disposition home or self-care (01) ==
PROVIDERS: Registered Nurse Emergency; Emergency Provider Emergency Medicine; PCP Internal Medicine
DX: R07.89 Other chest pain (principal); I49.8 Other specified cardiac arrhythmias; R06.02 Shortness of breath; I25.10 Atherosclerotic heart disease of native coronary artery without angina pectoris; I10 Essential (primary) hypertension; Z79.899 Other long term (current) drug therapy; Z87.891 Personal history of nicotine dependence; Z03.818 Encounter for observation for suspected exposure to other biological agents ruled out
CPT/HCPCS: 0241U; 36415; 71046; 80053; 83880; 84484; 85025; 93005; 99283; 99284

== ENCOUNTER → 2024-12-19 16:03 | Outpatient (BNV) | payer MEDICARE, SELFPAY | PROVIDERS: Emergency Provider Emergency Medicine; PCP Internal Medicine; Visit Provider Internal Medicine | DX: R07.9 Chest pain, unspecified (principal) | CPT/HCPCS: 93010 ==

== ENCOUNTER → 2024-12-19 16:17 | Outpatient (BNV) | payer MEDICARE, SELFPAY | PROVIDERS: PCP Internal Medicine; Visit Provider Nuclear Medicine | DX: R07.9 Chest pain, unspecified (principal) | CPT/HCPCS: 71046 ==

== ENCOUNTER 2025-01-02 15:15 | Outpatient (REF) | payer MEDICARE, SELFPAY ==
--- NOTE | ~2025-01-02 | XR_ITS ---
CLINICAL HISTORY: M79.671 - Pain in right foot Three views of the right foot. Findings: No acute fractures or suspicious bony lesions are seen. There is no significant malalignment. Mild plantar calcaneal spurring is noted. No significant degenerative changes are seen. Impression: Mild calcaneal spurring. This document has been electronically signed by: Saturnino Howard MD on 01/05/2025 18:56:19
[2025-01-02 17:28] LABS: Appearance Urine Clear; Color Urine Yellow; Glucose Urine UA Negative (Negative); Leukocyte Esterase Urine Negative (Negative); Nitrite Urine Negative (Negative); PH 5.5 (5.0-9.0); Urine Blood Negative (Negative); Urine Ketones Negative (Negative); Urine Protein Negative (Neg-Trace)
[2025-01-07 11:38] LABS: Mumps Virus IgG Antibody >300.00 AU/mL; Rubeola IgG (Measles) >300.00 AU/mL
== END 2025-01-02 15:16 | disposition home or self-care (01) ==
LOC: HO.XRAY 15:15
PROVIDERS: PCP Internal Medicine; Visit Provider Internal Medicine
DX: F41.1 Generalized anxiety disorder (principal); I10 Essential (primary) hypertension; E78.5 Hyperlipidemia, unspecified; M79.671 Pain in right foot; R31.9 Hematuria, unspecified; Z13.228 Encounter for screening for other metabolic disorders; Z13.0 Encounter for screening for diseases of the blood and blood-forming organs and certain disorders involving the immune mechanism; Z13.29 Encounter for screening for other suspected endocrine disorder
CPT/HCPCS: 36415; 73630; 81003; 86735; 86762; 86765; 96127; 99202

== ENCOUNTER 2025-01-02 15:15 | Outpatient (AMB) | payer MEDICARE, SELFPAY ==
[2025-01-02 15:17] VITALS: BP 126/80; PULSE 98; RESP 14; TEMP 36.4; O2SAT 97; BMI 29.0
--- NOTE | 2025-01-02 15:17 | A.OFFPC_ITS ---
Vital Signs 01/02/25 15:17 Height 5 ft 10 in Weight 202 lb BMI 29.0 BP 126/80 Respiration 14 Pulse 98 Pulse Source Pulse Oximeter Temp 97.6 F Temp Source Temporal Artery Scan Pulse Oximetry (%) 97 Oxygen Delivery Method Room Air Intake Visit Reasons: Routine District Loss Prevention Manager Required: No Accompanied by: Self / Same As Patient Allergies Etvsmhj-XLK-KgA Reductase Inhibitor Allergy (Mild, Verified 01/02/25 15:17) feet numbness Sulfa (Sulfonamide Antibiotics) [Sulfa (Sulfonamides)] Allergy (Mild, Verified 01/02/25 15:17) RASH bee pollen [BEE STINGS] Allergy (Unknown, Verified 01/02/25 15:17) SWELLING albuterol [Albuterol] Adverse Reaction (Mild, Verified 01/02/25 15:17) JITTERY theophylline [Theophylline] Adverse Reaction (Mild, Verified 01/02/25 15:17) NAUSEA & VOMITING perfume Adverse Reaction (Verified 01/02/25 15:17) Cough GRASS Allergy (Severe, Uncoded 01/02/25 15:17) DIFFICULTY BREATHING FROM GRASS AND LEAVES Tobacco use date assessed: 01/02/25 Fall risk assessment: 1 Fall in past year Last assessed Fall Risk: 01/02/25 Dental Screening Dental Screen Date: 01/02/25 Did you have a dental visit in the last 12 months?: Yes Did you have a dental problem in the last 6 months where you did not have access to dental care?: No HPI HPI Comments History of Present Illness Details The patient is a 74 year old male with a past medical history of hypertension, hyperlipidemia, GERD, anxiety, asthma, IBS, BPH, kidney stones presenting for follow up. Seen for CPE for annual. CV: Follows with cardiology Dr Shaw. On amlodipine, repatha. EKG last visit good. Seen in ER recently with chest pain and having domestic issues at home. Lots of issues in wifes family. ER visit negative ACS. is on xanax BID daily. Previously using more intermittently. Says used to be on buspar years ago. Does not recall ever being on SSRI right ankle pain-lump below the right malleoulus Asthma: On singulair, albuterol BPH: on finasteriide ,tamsulosin 03/2021 colonoscopy repeat [address] Guillermo art ROS see HPI PHYSICAL EXAM: GENERAL: Alert and oriented x 3. NAD EYES: EOMI. Anicteric. HENT: Moist mucous membranes. No scleral icterus. No cervical lymphadenopathy. LUNGS: Clear to auscultation bilaterally. CARDIOVASCULAR: Regular rate and rhythm. No murmur. No JVD. ABDOMEN: Soft, non-tender +bs EXTREMITIES: No edema. Non-tender. MSK: [id number] roudned mass below the right malleolus. SKIN: No rashes or lesions. Warm. NEUROLOGIC: No focal neurological deficits. CN II-XII grossly intact PSYCHIATRIC: Cooperative. anxious [facility] Medical History Coronary artery disease HTN (hypertension) Hyperlipidemia GERD (gastroesophageal reflux disease) Asthma Family History Father Diabetes Heart problem Dementia BP (high blood pressure) High cholesterol Mother BP (high blood pressure) High cholesterol Dementia Social History Housing: House Alcohol intake: former Patient Tobacco Use Status: Former Tobacco user service: No Current occupational status: retired Cognitive needs: No Hearing needs: Yes (b/l hearing aids) Vision needs: Yes (rx glasses) Questionnaire PHQ-9 Over the last 2 weeks, how often have you been bothered by any of the following problems? 1. Little interest or pleasure in doing things: not at all 2. Feeling down, depressed, or hopeless: not at all 3. Trouble falling or staying asleep, or sleeping too much: not at all 4. Feeling tired or having little energy: not at all 5. Poor appetite or overeating: not at all 6. Feeling bad about yourself - or that you are a failure or have let yourself or your family down: not at all 7. Trouble concentrating on things, such as reading the newspaper or watching television: not at all 8. Moving or speaking so slowly that other people could have noticed. Or the opposite - being so fidgety or restless that you have been moving around a lot more than usual: not at all 9. Thoughts that you would be better off or of hurting yourself in some way: not at all Total score: 0 Depression Screening Interpretation: Negative Depression Screening Done: Yes 48220 - PHQ-9 Billing: Yes Source: Developed by Drs. Demetrius Baltazar, Leeroy Camarena and colleagues, with an educational mandy from [employer]. Thrive Questionnaire Date Thrive assessed: 01/02/25 I am a: Patient What is your living situation today?: I have a steady place to live Within the past 12 months, did the food you bought not last and you didn't have the money to get more?: Never true Within the past 12 months, did you worry whether your food would run out before you got money to buy more?: Never true Do you have trouble paying for medicines?: No Do you have trouble getting transportation to medical appointments?: No Do you have trouble paying your heating and electricity bill?: No Do you have trouble taking care of your child, family member or friend?: No Do you have trouble with day-to-day activities such as bathing, preparing meals, shopping, managing finances, etc.?: No Are you currently unemployed and looking for a job?: No Are you interested in more education?: No Please select the resources that you would like help with: None THRIVE Score: 0 AUDIT C Alcohol Use Questionnaire (AUDIT-C) 1. How often do you have a drink containing alcohol?: Never 3. How often do you have six or more drinks on one occasion?: Never Total Score: 0 LOTUS-7 AMB Questionnaire LOTUS-7 Date LOTUS - 7 assessed: 01/02/25 Feeling nervous, anxious, or on edge: 3 = Nearly every day Not being able to stop or control worryin = Not at all Worrying too much about different things: 0 = Not at all Trouble relaxin = Several days Being so restless that it is hard to sit still: 3 = Nearly every day Becoming easily annoyed or irritable: 0 = Not at all Feeling afraid as if something awful might happen: 1 = Several days Total LOTUS-7 score (0-4 normal; 5-9 mild; 10-14 moderate; 15-21 severe): 8 Source: Developed by Sharonda Mauricio Kurt Kroenke and colleagues, with an educational mandy from [employer]. Physical exam (Primary Care) Vital Signs: Last Vital Signs Temp 97.6 F 01/02/25 15:17 Pulse 98 01/02/25 15:17 Resp 14 01/02/25 15:17 BP 126/80 01/02/25 15:17 Pulse Ox 97 01/02/25 15:17 Oxygen Delivery Method Room Air 01/02/25 15:17 BMI result Body Mass Index 29.0 Tobacco/Smoking Status: Tobacco use Status Tobacco use date assessed 01/02/25 01/02/25 15:20 Patient Tobacco Use Status Former Tobacco user 01/02/25 15:20 PHQ-9: PHQ-9 Score PHQ-9: Total score 0 01/03/25 12:44 Depression Screening Interpretation: Negative Thrive Assessment: Date of Thrive Assessment Date Thrive assessed 01/02/25 01/02/25 15:20 Coding Level of Care Code New Pt Level 4 (76804) Complex EM visit Add On G2211 Diagnoses Generalized anxiety disorder F41.1 Primary hypertension I10 Hypertension type: primary hypertension Hyperlipidemia, unspecified hyperlipidemia type E78.5 Hyperlipidemia type: unspecified Additional Codes PHQ-9 - 85550 - PHQ-9 Billing: Yes ([id number]) Assessment & Plan Assessment & Plan (1) Generalized anxiety disorder: Code(s): F41.1 - Generalized anxiety disorder Category: Medical (2) HTN (hypertension): Code(s): I10 - Essential (primary) hypertension Category: Medical Qualifiers: Hypertension type: primary hypertension Qualified Code(s): I10 - Essential (primary) hypertension (3) Hyperlipidemia: Code(s): E78.5 - Hyperlipidemia, unspecified Category: Medical Qualifiers: Hyperlipidemia type: unspecified Qualified Code(s): E78.5 - Hy perlipidemia, unspecified Plan 74 year old male presenting to [facility] Past medical, surgical, social and family history reviewed Anxiety, uncontrolled-Discussed benefit of adding SSRI. continue prn xanax though discussed ultimately we would like to see the frequency of this decreased right foot pain. xray ordered. referral to podiatry History of hematuria-recommend urology referral -he wants to wait and check urine Orders: Orders MMR IgG Measles Mumps Rubella 01/02/25 Z13.0 - Encounter for screening for diseases of the blood and blood-forming organs and certain disorders involving the immune mechanism, Z13.228 - Encounter for screening for other metabolic disorders, Z13.29 - Encounter for screening for other suspected endocrine disorder UA CC w/rflx Micro + Cult 01/02/25 R31.9 - Hematuria, unspecified XR foot RT min 3V 01/02/25 M79.671 - Pain in right foot Referrals Podiatry Referral M79.671 - Pain in right foot Medications: New sertraline Take 1/2 tab oral once daily for one week then increase to one tablet oral daily 25 mg PO DAILY 90 tabs 3RF Changed From alprazolam 0.25 mg PO BID PRN To alprazolam 0.25 mg PO BID PRN 120 tabs 3RF anxiety 60 days
== END 2025-01-02 15:56 | disposition home or self-care (01) ==
LOC: HO.HMCHD 15:16
PROVIDERS: PCP Internal Medicine; Visit Provider Internal Medicine
DX: F41.1 Generalized anxiety disorder (principal); I10 Essential (primary) hypertension; E78.5 Hyperlipidemia, unspecified

== ENCOUNTER → 2025-01-02 16:29 | Outpatient (BNV) | payer MEDICARE, SELFPAY | PROVIDERS: PCP Internal Medicine; Visit Provider Radiology Diagnostic Radiology | DX: M79.671 Pain in right foot (principal) | CPT/HCPCS: 73630 ==

== ENCOUNTER 2025-02-13 14:03 | Outpatient (AMB) | payer MEDICARE, SELFPAY ==
[2025-02-13 10:47] VITALS: BP 160/80; PULSE 71; RESP 16; TEMP 36.7; O2SAT 96; BMI 28.6
--- NOTE | 2025-02-13 10:47 | MHC.PC.OV ---
Vital Signs 02/13/25 10:47 Height 5 ft 10 in Weight 199 lb BMI 28.6 BP 160/80 H Respiration 16 Pulse 71 Pulse Source Pulse Oximeter Temp 98.0 F Temp Source Oral Pulse Oximetry (%) 96 Oxygen Delivery Method Room Air Intake Visit Reasons: 6 week F/U Corporate Recruiter Required: No Accompanied by: Self / Same As Patient Allergies Nnfzkca-UBV-KkV Reductase Inhibitor Allergy (Mild, Verified 02/13/25 14:17) feet numbness Sulfa (Sulfonamide Antibiotics) [Sulfa (Sulfonamides)] Allergy (Mild, Verified 02/13/25 14:17) RASH bee pollen [BEE STINGS] Allergy (Unknown, Verified 02/13/25 14:17) SWELLING albuterol [Albuterol] Adverse Reaction (Mild, Verified 02/13/25 14:17) JITTERY theophylline [Theophylline] Adverse Reaction (Mild, Verified 02/13/25 14:17) NAUSEA & VOMITING perfume Adverse Reaction (Verified 02/13/25 14:17) Cough GRASS Allergy (Severe, Uncoded 02/13/25 14:17) DIFFICULTY BREATHING FROM GRASS AND LEAVES Tobacco use date assessed: 02/13/25 Fall risk assessment: 1 Fall in past year Last assessed Fall Risk: 02/13/25 Dental Screening Dental Screen Date: 02/13/25 Did you have a dental visit in the last 12 months?: Yes Did you have a dental problem in the last 6 months where you did not have access to dental care?: No Was dental information given to patient?: Patient has dentist HPI HPI Comments History of Present Illness Details The patient is a 74 year old male with a past medical history of hypertension, hyperlipidemia, GERD, anxiety, asthma, IBS, BPH, kidney stones presenting for follow up. Noted increasing anxiety levels at last visit. He was started on zoloft but did not tolerate the medicine during the first few days. He felt woozy and dizzy. Does not want to try another daily med at this point. Home stress is improving slightly. is on xanax BID daily. Previously using more intermittently. Says used to be on buspar years ago. CV: Follows with cardiology Dr Shaw. On amlodipine, repatha. EKG last visit good. Seen in ER recently with chest pain and having domestic issues at home. Lots of issues in wifes family. ER visit negative ACS. right ankle pain-lump below the right malleoulus Asthma: On singulair, albuterol BPH: on finasteriide ,tamsulosin 03/2021 colonoscopy repeat [address] Riojas ROS see HPI PHYSICAL EXAM: GENERAL: Alert and oriented x 3. NAD EYES: EOMI. Anicteric. HENT: Moist mucous membranes. No scleral icterus. No cervical lymphadenopathy. LUNGS: Clear to auscultation bilaterally. CARDIOVASCULAR: Regular rate and rhythm. No murmur. No JVD. ABDOMEN: Soft, non-tender +bs EXTREMITIES: No edema. Non-tender. MSK: [id number] roudned mass below the right malleolus. SKIN: No rashes or lesions. Warm. NEUROLOGIC: No focal neurological deficits. CN II-XII grossly intact PSYCHIATRIC: Cooperative. anxious [facility] Medical History Coronary artery disease HTN (hypertension) Hyperlipidemia GERD (gastroesophageal reflux disease) Asthma Surgical History History of colonoscopy (~03/14/21) Family History Father Diabetes Heart problem Dementia BP (high blood pressure) High cholesterol Mother BP (high blood pressure) High cholesterol Dementia Social History (Updated 02/13/25 @ 14:22 by ARISTIDES Leung) Housing: House Alcohol intake: former Patient Tobacco Use Status: Former Tobacco user e-Cigarette/Vaping Use: Former Use service: No Current occupational status: retired Cognitive needs: No Hearing needs: Yes (b/l hearing aids) Vision needs: Yes (rx glasses) Questionnaire PHQ-9 Over the last 2 weeks, how often have you been bothered by any of the following problems? 1. Little interest or pleasure in doing things: not at all 2. Feeling down, depressed, or hopeless: not at all 3. Trouble falling or staying asleep, or sleeping too much: not at all 4. Feeling tired or having little energy: not at all 5. Poor appetite or overeating: not at all 6. Feeling bad about yourself - or that you are a failure or have let yourself or your family down: not at all 7. Trouble concentrating on things, such as reading the newspaper or watching television: not at all 8. Moving or speaking so slowly that other people could have noticed. Or the opposite - being so fidgety or restless that you have been moving around a lot more than usual: not at all 9. Thoughts that you would be better off or of hurting yourself in some way: not at all Total score: 0 Depression Screening Interpretation: Negative Depression Screening Done: Yes 81308 - PHQ-9 Billing: Yes Source: Developed by Drs. Demetrius Baltazar, Sharonda Noe, Leeroy Marin and colleagues, with an educational mandy from [employer]. Thrive Questionnaire Date Thrive assessed: 02/13/25 I am a: Patient Within the past 12 months, did the food you bought not last and you didn't have the money to get more?: Never true Within the past 12 months, did you worry whether your food would run out before you got money to buy more?: Never true Do you have trouble paying for medicines?: No Do you have trouble getting transportation to medical appointments?: No Do you have trouble paying your heating and electricity bill?: No Do you have trouble taking care of your child, family member or friend?: No Do you have trouble with day-to-day activities such as bathing, preparing meals, shopping, managing finances, etc.?: No Are you currently unemployed and looking for a job?: No Are you interested in more education?: No THRIVE Score: 0 AUDIT C Alcohol Use Questionnaire (AUDIT-C) 1. How often do you have a drink containing alcohol?: Never 3. How often do you have six or more drinks on one occasion?: Never Total Score: 0 LOTUS-7 AMB Questionnaire LOTUS-7 Date LOTUS - 7 assessed: 02/13/25 Feeling nervous, anxious, or on edge: 0 = Not at all Not being able to stop or control worryin = Not at all Worrying too much about different things: 0 = Not at all Trouble relaxin = Not at all Being so restless that it is hard to sit still: 0 = Not at all Becoming easily annoyed or irritable: 0 = Not at all Feeling afraid as if something awful might happen: 0 = Not at all Total LOTUS-7 score (0-4 normal; 5-9 mild; 10-14 moderate; 15-21 severe): 0 Source: Developed by Drs. Demetrius Baltazar, Sharonda Noe, Leeroy Marin and colleagues, with an educational mandy from [employer]. Physical exam (Primary Care) Vital Signs: Last Vital Signs Temp 98.0 F 02/13/25 10:47 Pulse 71 02/13/25 10:47 Resp 16 02/13/25 10:47 BP 160/80 H 02/13/25 10:47 Pulse Ox 96 02/13/25 10:47 Oxygen Delivery Method Room Air 02/13/25 10:47 BMI result Body Mass Index 28.6 Tobacco/Smoking Status: Tobacco use Status Tobacco use date assessed 02/13/25 02/13/25 10:49 Patient Tobacco Use Status Former Tobacco user 02/13/25 14:22 e-Cigarette/Vaping Use Former Use 02/13/25 14:22 PHQ-9: PHQ-9 Score PHQ-9: Total score 0 02/13/25 14:25 Depression Screening Interpretation: Negative Thrive Assessment: Date of Thrive Assessment Date Thrive assessed 02/13/25 02/13/25 10:49 Coding Level of Care Code Est Pt Level 3 (46194) Diagnoses Generalized anxiety disorder F41.1 Primary hypertension I10 Hypertension type: primary hypertension Additional Codes PHQ-9 - 03737 - PHQ-9 Billing: Yes ([id number]) Assessment & Plan Assessment & Plan (1) Generalized anxiety disorder: Code(s): F41.1 - Generalized anxiety disorder Category: Medical (2) HTN (hypertension): Code(s): I10 - Essential (primary) hypertension Category: Medical Qualifiers: Hypertension type: primary hypertension Qualified Code(s): I10 - Essential (primary) hypertension Plan Did not tolerate recent trial of zoloft. Would like to hold off on another trial for now He will continue prn xanax He will follow up in a few month regarding anxiety Blood pressure is well controlled. Labs reviewed
--- OUTSIDE RECORDS SUMMARY | 2025-02-13 14:06 | XMS_ITS | Patient Health Record ---
[facility] EstradaB[facility] Address [address] [place] [address] Care Team Providers Care Hotel Baggage Handler Name Role Phone Cristin Rasmussen Primary Care Provider Terrence Carver Unavailable [phone] Allergies Allergen (clinical drug ingredient) Drug/Non Drug Allergy documented on EMR Reaction Allergy Type Onset Date Status sulfamethoxazole / trimethoprim Bactrim Rash Drug Allergy Active Latex Latex Rash Allergy Active Reason For Referral No Information Medications Medication SIG (Take, Route, Frequency, Duration) Notes Start Date End Date Status Pepcid 40 MG 1 tablet at bedtime Orally Once a day for 30 day(s) 05/10/2023 Active Ammonium Lactate 12 % 1 application Externally Twice a day for 30 days Not-Taking Pantoprazole Sodium 40 MG Oral for 90 Days Active Finasteride 5 MG Oral for 90 Days Active Montelukast Sodium 10 MG TAKE 1 TABLET B Y MOUTH EVERY DAY Oral for 90 Days Active amLODIPine Besylate 2.5 MG TAKE 1 TABLET BY MOUTH EVERY DAY Oral for 30 Days Active Xanax 0.25 MG 1 tablet Orally Twic e a day 05/10/2023 Active Tamsulosin HCl 0.4 MG TAKE 1 CAPSULE BY MOUTH AT BEDTIME Oral for 90 Days Active Social History Tobacco Use: Social History Observation Description Date Details (start date - stop date) Never Smoker NA - NA Alcohol Screen Question Answer Notes Did you have a drink containing alcohol in the p ast year? No Points 0 Interpretation Negative Tobacco use other than smoking: Question Answer Notes Are you an other tobacco user? No Tobacco Control ([place]) Question Answer Notes Tobacco use: Nonsmoker Additional Findings: Tobacco non-user Current no nsmoker Vital Signs Height 5ft 10in in 01/22/2025 Weight 203 lbs 01/22/2025 BMI 29.12 kg/m2 01/22/2025 Encounters Encounter Location Date Provider Diagnosis [facility] [address] [address] 01/22/2025 Terrence Zarateier Ganglion of foot, right M67.471 and Pain in right foot M79.671 Assessments Encounter Date Diagnosis (ICD Code) Assessment Notes Treatment Notes Treatment Clinical Notes Section Notes 01/22/2025 Pain in right foot (ICD-10 - M79.671) 01/22/2025 Ganglion of foot, right (ICD-10 - M67.471) Plan Of Treatment Pending Test Test Name Order Date 18351 I&D ABSCESS- SIMPLE,SINGLE 023 41571- Removal of Foreign Body, Subcut 0 05/29/2023 X ray : Ankle, right 3V 01/22/2025 Insurance Providers Payer Name Payer Address Payer Phone Subscriber Number Group Number Insured Name Patient Relationship to Insured Coverage Start Date Coverage End Date Medicare National [employer] [address] [facility] [address] [id number] Gagandeep Machuca Self - patient is the insured [employer] [address] [place] [address] [phone] [id number] Gagandeep Machuca Self - patient is the insured Medical (General) History Medical History History ICD Code Anxiety asthma CAD (Cholesterol) Hiatal hernia High blood pressure Warts Measles Mumps Chicken pox Surgical History Surgery Date(Month/Year) left shoulder 03/2020 knee surgery, right 03/2004 Hospitalization History Reason Date(Month/Year) [facility]- anxiety 12/2024
--- OUTSIDE RECORDS SUMMARY | 2025-02-13 14:06 | XMS_ITS ---
Author Organization [facility] Address [address] [place] [id number] Care Team Providers Care Nuclear Plant Construction Worker Name Role Phone Socrates Garcia MD Primary Care Provider Demetrius Oneil [phone] REASON FOR VISIT increased pantoprazole/needs r/f Medications Medication SIG (Take, Route, Frequency, Duration) Notes Start Date End Date Status Pantoprazole Sodium 40 MG TAKE 1 TABLET BY MOUTH TWICE DAILY Orally Twice a day for 30 days Active Encounters Encounter Location Date Provider Diagnosis [facility] [address] [place] [phone] 05/20/2024 Demetrius Riojas Plan Of Treatment Medication Medication Name Sig Start Date Stop Date Notes Pantoprazole Sodium 40 MG TAKE 1 TABLET BY MOUTH TWICE DAILY Orally Twice a day for 30 days Progress Notes * JOAQUIN CRAIN HDOB: [birth year] (73 yo M)Acc No.[id number]:05/20/2024 Patient:?JOAQUIN CRAIN :1950???Age:73 Y???Sex:Male Address:[address] , [address], [place] [address] * Refills? Refill Pantoprazole Sodium Tablet Delayed Release, 40 MG, Orally, 60, TAKE 1 TABLET BY MOUTH TWICE DAILY, Twice a day, 30 days, Refills=11 * true * Date:? Generated for Wanda warner/Yordy/eTransmitting on:?02/13/2025 02:06 PM EDT
--- OUTSIDE RECORDS SUMMARY | 2025-02-13 14:06 | XMS_ITS ---
Author Organization [facility] Address [address] [place] [address] Care Team Providers Care Installer Metal Flooring Name Role Phone Socrates Garcia MD Primary Care Provider Demetrius Oneil Unavailable [phone] Allergies Allergen (clinical drug ingredient) Drug/Non Drug [...] Problem Status W/U Status Risk Notes Problem 052490685 History of adenomatous polyp of colon (Z86.010) Active confirmed Problem Gastroesophageal reflux disease with esophagitis (disorder) (744550634) Gastro-esophag eal reflux disease with esophagitis, without bleeding (K21.00) Active confirmed Vital Signs Temperature 97.3 degrees Fahrenheit 10/02/20 23 Blood pressure systolic 000 mm Hg 10/02/20 23 Blood pressure diastolic 00 mm Hg 023 Height 70 in 10/02/2023 Weight 192 lbs 10/02/2023 BMI 27.55 kg/m2 10/02/2023 Encounters Encounter Location Date Provider Diagnosis [facility] [address] [place] [address] 10/02/2023 Demetrius Riojas Abdominal pain, epigastric R10.13 [...] GAGANDEEP CRAIN HDOB: [birth year] (73 yo M)Acc No.[id number]:10/02/2023 Progress Notes Patient:?GAGANDEEP CRAIN Provider:?Demetrius Riojas MD :1950???Age:73 Y???Sex:Male Len e:10/02/2023 Address:[address] [place] [address] , [address] Pcp:Socratse Garcia MD Subjective: * Chief Complaints: * [...] past year??No,?Points?0,?Interpretation?Negative.?Miscellaneous:?Marital status: . 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 ???Nonsmoker; no sig alcohol. * Medications:?TakingProtonix 40 [...] Procedure Codes:?3017F COLOR ECTAL CA SCREEN DOC [id number] TOBACCO [id number] BP SCR NOT PRFRM REC REASON NOS * Preventive Medicine:? ??Counseling:?Care goal follow-up plan:?Above Normal BMI Follow-up?Giving encouragement to exercise,?BMI management provided?Yes.? * Follow Up:?prn * * Sign off status: Completed true * Provider:?Demetrius Riojas MD Date:? 023 Generated for Wanda warner/Yordy/Courtney on:?02/13/2025 02:06 PM EDT History and Physical Notes * [...]
--- OUTSIDE RECORDS SUMMARY | 2025-02-13 14:06 | XMS_ITS | Patient Health Record ---
Author Organization [facility] Address [address] [place] [address] Care Team Providers Care Center Rep Name Role Phone Socrates Garcia MD Primary Care Provider Demetrius Oneil Unavailable [phone] Allergies Allergen (clinical drug ingredient) Drug/Non Drug [...] Problem Status W/U Status Risk Notes Problem [id number] Encounter for screening for malignant neoplasm of colon (Z12.11) Active confirmed Problem 755803215 History of adenomatous polyp of colon (Z86.010) Active confirmed Problem 07056717 Abdominal pain, epigastric (R10.13) Active confirmed Problem 099647545 Family history of colon cancer (Z80.0) Active confirmed Problem 55480922 Hiatal hernia (K44.9) Active confirmed Problem 591797960 Reflux esophagitis (K21.0) Active confirmed Problem 597613697 Abdominal pain, generalized (R10.84) Active confirmed Problem [id number] Abnormal ultrasound of abdomen (R93.5) Active confirmed Problem Gastroesophageal reflux disease with esophagitis (disorder) (087334586) Gastro-esophag eal reflux disease with esophagitis, without bleeding (K21.00) Active confirmed Encounters Encounter Location Date Provider Diagnosis [facility] [address] [place] [address] 05/20/2024 Demetrius Riojas Plan Of Treatment Pending Test Test Name Order Date CHEM 7 PROFILE 07/01/2023 LIVER PROFILE 05/01/2023 LIVER PROFILE 07/01/2023 CBC w DIFF 05/01/2023 CT ABD & [...] End Date MEDICARE OF [place] [address] [place] [address] [place] [address] [id number] JOAQUIN NASSAR Self - patient is the insured [employer] ATT[employer] CLAIMS [address] [place] [address] [phone] [id number] KENYACASIE AquinoJOAQUIN Self - patient is the insured Medical (General) History Medical History History ICD Code Denies RI,DM,CVA,Lung disease,renal dise ase Asthma Negative colonoscopy in [...]
--- OUTSIDE RECORDS SUMMARY | 2025-02-13 14:06 | XMS_ITS ---
Author Organization [facility] Address [address] [place] [address] Care Team Providers Care Director Of Orthopedics Name Role Phone Cristin Rasmussen Primary Care Provider Terrence Carver Unavailable [phone] Allergies Allergen (clinical drug ingredient) Drug/Non Drug Allergy documented on EMR Reaction Allergy Type Onset Date Status sulfamethoxazole / trimethoprim Bactrim Rash Drug Allergy Active Latex Latex Rash Allergy Active REASON FOR VISIT Skin Problem Medications Medication SIG (Take, Route, Frequency, Duration) Notes Start Date End Date Status Pepcid 40 MG 1 tablet at bedtime Orally Once a day for 30 day(s) 05/10/2023 Active Ammonium Lactate 12 % 1 application Externally Twice a day for 30 days Not-Taking Pantoprazole Sodium 40 MG Oral for 90 Days Active Xanax 0.25 MG 1 tablet Orally 05/10/2023 Active Tamsulosin HCl 0.4 MG TAKE 1 CAPSULE BY MOUTH AT BEDTIME Oral for 90 Days Active Finasteride 5 MG Oral for 90 Days Active Montelukast Sodium 10 MG TAKE 1 TABLET B Y MOUTH EVERY DAY Oral for 90 Days Active amLODIPine Besylate 2.5 MG TAKE 1 TABLET BY MOUTH EVERY DAY Oral for 30 Days Active Social History Tobacco Use: Social [...] 01/22/2025 Encounters Encounter Location Date Provider Diagnosis [facility] [address] [address] 01/22/2025 Terrence Gallegosunier Ganglion of foot, right M67.471 and Pain in right foot M79.671 Assessments Encounter Date Diagnosis (ICD Code) Assessment Notes Treatment Notes Treatment Clinical Notes Section Notes 01/22/2025 Ganglion of foot, right (ICD-10 - M67.471) 01/22/2025 Pain in right foot (ICD-10 - M79.671) Plan Of Treatment Pending Test Test Name Order Date X ray : Ankle, right 3V 01/22/2025 Next Appt Details Follow Up: prn, Reason: Progress Notes * Gagandeep RIOJASDOB: [birth year] (74 yo M)Acc No.[id number]:01/22/2025 Progress Note Patient:?Gagandeep RIOJAS Provider:?Terrence Scott DPM :1950???Age:74 Y???Sex:Male Len e:01/22/2025 [facility] [place], [place] Pcp:Cristin Rasmussen Subjective: * Chief Complaints: * ???Skin Problem * HPI: ???Skin problems:?Nature:?swelling, tender.?Location:?Outside, Heel/Rearfoot, Ankle, Right.?Duration:?several years.?Onset/Cause:?unknown, insidious, denies injury.?Course:?worse.?Aggravated by:?any pressure, shoe gear.?Treatments:?change in shoes, extra socks for cushion.? * ROS:?General/Constitutional:?Nausea?admits.?Vomiting?denies.?Hunger Thirst?denies.?Loss appetite?denies.?Chills?denies.?Fatigue?denies.?Fever?denies.?Night Sweats?denies.?Unexplained weight loss?denies.?Unexplained [...] surgery, right 03/2004 * Hospitalization/Major Diagno stic Procedure:?[facility]- anxiety 12/2024 * Family History:?Mother: dece ased, foot problems, diagnosed with Unspecified essential hypertension.?Father: , foot problems, diagnosed with Unspecified essential hypertension.? * Social History:?Tobacco Use:?Tobacco use other than smoking?Are you an other tobacco user??No ?Tobacco Control (Standard)?Tobacco use:?Nonsmoker ?Additional Findings: Tobacco non-user?Current nonsmoker ???Drugs/Alcohol:?Drugs?Have you used drugs other than those for medical reasons in the past 12 months??No ?Alcohol Screen?Did you have a drink containing alcohol in the past year??No ?Points?0 ?Interpretation?Negative ???Miscellaneous:?Caffeine: yes. ?Children: no. ?Exercise: no. ?Marital status: . 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 * Medications:?TakingFinasteri de 5 MG Tablet Oral amLODIPine Besylate 2.5 MG Tablet TAKE 1 TABLET BY MOUTH EVERY DAY Oral Montelukast Sodium 10 MG Tablet TAKE 1 TABLET BY MOUTH EVERY DAY Oral Tamsulosin HCl 0.4 MG Capsule TAKE 1 CAPSULE BY MOUTH AT BEDTIME Oral Xanax 0.25 MG Tablet 1 tablet Orally Twice a day Pepcid 40 MG Tablet 1 tablet at bedtime Orally Once a day Pantoprazole Sodium 40 MG Tablet Delayed Release Oral Taking Finasteride 5 MG Tablet Oral Taking amLODIPine Besylate 2.5 MG Tablet TAKE 1 TABLET BY MOUTH EVERY DAY Oral Taking Montelukast Sodium 10 MG Tablet TAKE 1 TABLET BY MOUTH EVERY DAY Oral Taking Tamsulosin HCl 0.4 MG Capsule TAKE 1 CAPSULE BY MOUTH AT BEDTIME Oral Taking Xanax 0.25 MG Tablet 1 tablet Orally Twice a day Taking Pepcid 40 MG Tablet 1 tablet at bedtime Orally Once a day Taking Pantoprazole Sodium 40 MG Tablet Delayed Release Oral Not-Taking/PRNAmmonium Lactate 12 % Cream 1 application Externally Twice a day Medication List reviewed and reconciled with the patientNot-Taking/PRN Ammonium Lactate 12 % Cream 1 application Externally Twice a day Medication List reviewed and reconciled with the patient * Allergies:?Bactrim: RashLate x: Rashyes[Allergies Verified] Objective: * Vitals:?Ht: 5ft 10in, Wt:203 , BMI:29.12, Shoe size: 9.5, Ht-cm: 177.8 cm, Wt-k.08 kg. * Examination: ???Dermatologic: ?SKIN FINDINGS:?Skin shows sign(s) of, a semi-firm, painful, non- translucent, non-pulsatile, nonmobile Sub Q tumor franco. 6x 6x 4mm, Lateral, Rearfoot/Ankle, Right foot.?X-Rays - IMAGING REPORT: ?Clinical Indication(s):?Evaluate for accessory ossicle.?Views:?3 views of Ankle, RIGHT, AP, LAT, LO, Taken by a trained Podiatric [employer] Ax Technical Architect ( [place] ).?Findings:?normal bone and soft tissue density consistent for patients age and sex.?Accessory ossicles:?None.?Orthopedic: ?MUSCLE STRENGTH:?5/5 all groups in a symmetrical fashion , B/L.?FOOTWEAR EVALUATION:?good condition.?Vascular: ?DP PULSES (B):?3/4, B/L.?PT PULSES (B):?3/4, B/L.?CAPILLARY FILL TIME:?immediate, all digits, B/L.?TROPHIC CONDITION-TEXTURE/ELASTICITY/TURGOR/HAIR GROWTH (B):?normal, B/L.?TEMPERTURE GRADIENT (C):?warm to cool, proximal to distal, B/L.?PIGMENTATION:?normal, B/L.?EDEMA (C):?absent, B/L.?Neurological: ?SENSORY:?Neurological exam reveals intact sensorium, pain sensation normal, vibration sensation intact, pinprick sensation is normal in the lower extremities, Pt denies, anesthesia, burning, paresthesia, tingling, B/L.?TINEL'S COMPRESSION:? Negative tarsal tunnel, crystal pedis, and medial calcaneal nerves, Right.?DEEP TENDON REFLEXES:?Achilles, 2/4, B/L.?General Examination: ?GENERAL APPEARANCE:?Reveals a pleasant, alert, well-nourished, well- developed, well hydrated individual, who demonstrates proper attention to hygiene/body habitus, and is in no acute distress, Pt serves as own?historian for office visit today.?ORIENTED:?person, place, and time.? Assessment: * Assessment: 1.?Pain in right foot - M79. 671???2.?Ganglion of foot, right - M67.471 (Primary)???Specify :Chronic problem, Worse (4)??? Plan: * Treatment: * Procedure Codes:?61823 X-RAY EXAM OF RIGHT ANKLE 3V, Modifiers: 26 , RT * Preventive Medicine:? ??Counseling:?Discussion:?-14: Office or other outpatient visit for the evaluation and management of an established patient, which required a medically appropriate history and/or examination and MODERATE level of DECISION MAKING for: 1 OR MORE CHRONIC PROBLEM(S) THATS WORSENING, 2 STABLE CHRONIC PROBLEMS, A NEWLY DIAGNOSED PROBLEM WITH UNCERTAIN PROGNOSIS, AN ACUTE COMPLICATED INJURY WITH MULTIPLE TREATMENT OPTIONS, OR AN ACUTE PROBLEM WITH ACCOMPANYING SYSTEMIC SYMPTOMS, THAT POSE(S) A MODERATE RISK OF MORBIDITY. THIS CONDITION MAY ALSO INCLUDE RX DRUG MANAGEMENT, OR A DECISON FOR MINOR SURGERY. The visit on the day of the [...] have encouraged the patient to call the office.?Ganglions:?The patient was counseled on the diagnosis, potential etiologies, and treatment options for their Ganglion condition. We discussed the risks and benefits of each option from performing no treatment, accomidative padding, aspiration, cortisone injection therapy, and surgical excision. We discussed the advantages and disadvantages of each possible treatment and importance for adherence to all the recommended therapies for optimum success and avoid potential complications such as open sore/infection/possible hospitalization. We discussed the potential effectiveness of each treatment as well as the potential complications including: pain, infection, and recurrence, and in the case of excision surgery: scarring, chronic pain, nerve damage resulting in permanent numbness, and recurrence. Patient questions re: successful outcomes for each treatment option, and the patient verbalized that all answers were clearly understood.?Podiatric Surgery Counseling:?Surgical procedures to treat the patients foot problem were discussed. We reviewed the risks of the procedure (described below) vs not having the procedure (persistent pain, deformity, risk for skin ulceration/infection). We discussed the potential procedure complications including, but not limited to: pain, swelling, bleeding, scarring, numbness, infection, delayed/non healing, recurrence, failure of the procedure, recurrence, need for further surgery. We discussed the use of IV/Local anesthesia, and the usual post-op course for healing. No guarentees were given. The patient verbally indicated a full understanding of the above conversation, and any other of their questions were answered to their satisfaction.? ??Screening/Special Tests:?Fall Risk?Screening:?No falls in the past year ?FALLS: Screening for Future Fall Risk?Have you had any falls with injury in the past year??No * Follow Up:?prn * Images: * Sign off status: Completed true * Provider:?Terrence Scott DPM Date:?2024 Generated for Wanda warner/Yordy/Courtney on:?02/13/2025 02:06 PM EDT History and Physical Notes * HPI (History of Present Illness) Category Sub-Category Detail Notes Category Not es Skin problems Nature: swelling, tender Location: Outside, Heel/Rearfo ot, Ankle, Right Duration: several years Onset/Cause: unknown, insidious, denies injury Course: worse Aggravated by: any pressure, shoe g ear Treatments: change in shoes, ext ra socks for cushion Examination Category Sub-Category Detail Notes Category Not es Neurological SENSORY: Neurological exa m reveals intact sensorium, pain sensation normal, vibration sensation intact, pinprick sensation is normal in the lower extremities, Pt denies, anesthesia, burning, paresthesia, tingling, B/L TINEL'S COMPRESSION: Negative tarsal arnoldo sagrario, crystal pedis, and medial calcaneal nerves, Right DEEP TENDON REFLEXES: Achilles, 2/4, B/L Dermatologic SKIN FINDINGS: Skin shows sign( s) of, a semi-firm, painful, non-translucent, non-pulsatile, nonmobile Sub Q tumor franco. 6x 6x 4mm, Lateral, Rearfoot/Ankle, Right foot Orthopedic FOOTWEAR EVALUATION: good condition MUSCLE STRENGTH: 5/5 all groups in a symmetrical fashion , B/L General Examination GENERAL APPEARANCE: Reveals a pleasant, alert, well- nourished, well-developed, well hydrated individual, who demonstrates proper attention to hygiene/body habitus, and is in no acute distress, Pt serves as own historian for office visit today ORIENTED: person, place, and t nazanin Vascular DP PULSES (B): 3/4, B/L PT PULSES (B): 3/4, B/L CAPILLARY FILL TIME: immediate, all digi ts, B/L TEMPERTURE GRADIENT (C): warm to cool, p roximal to distal, B/L TROPHIC CONDITION-TEXTURE/ELASTICITY/TURGOR/HAIR GROWTH (B): normal, B/L EDEMA (C): absent, B/L PIGMENTATION: normal, B/L X-Rays - IMAGING REPORT Findings: normal b one and soft tissue density consistent for patients age and sex Accessory ossicles: None Views: 3 views of Ankle, RI GHT, AP, LAT, LO, Taken by a trained Podiatric [employer] Ax Technical Architect ( [place] ) Clinical Indication(s): Evaluate for acc essory ossicle
== END 2025-02-13 14:42 | disposition home or self-care (01) ==
LOC: HO.HMCHD 14:04
PROVIDERS: PCP Internal Medicine; Visit Provider Internal Medicine
DX: F41.1 Generalized anxiety disorder (principal); I10 Essential (primary) hypertension

== ENCOUNTER → 2025-02-13 14:03 | Outpatient (BNVA) | payer MEDICARE, SELFPAY | PROVIDERS: PCP Internal Medicine; Visit Provider Internal Medicine | DX: I10 Essential (primary) hypertension (principal); F41.1 Generalized anxiety disorder; E78.5 Hyperlipidemia, unspecified; K21.9 Gastro-esophageal reflux disease without esophagitis; J45.909 Unspecified asthma, uncomplicated; K58.9 Irritable bowel syndrome, unspecified; Z87.442 Personal history of urinary calculi | CPT/HCPCS: 96127; 99212 ==

== ENCOUNTER 2025-04-13 11:08 | Outpatient (AMB) | payer MEDICARE, SELFPAY ==
[2025-04-13 11:19] VITALS: BP 120/66; PULSE 80; BMI 28.5
--- NOTE | 2025-04-13 11:19 | MHC.OFFVIS ---
Vital Signs 04/13/25 11:19 Height 5 ft 10 in Weight 198 lb 6.656 oz BMI 28.5 BP 120/66 Blood Pressure Location Lt brachial Position Sitting Pulse 80 Intake Visit Reasons: r/s 03/30/25 1 yr followup w/ekg Intake Note: 1 year follow-up with ekg feeling good Allergies Knjovwm-GXI-VqR Reductase Inhibitor Allergy (Mild, Verified 02/13/25 14:17) feet numbness Sulfa (Sulfonamide Antibiotics) (Sulfa (Sulfonamides)) Allergy (Mild, Verified 02/13/25 14:17) RASH bee pollen (BEE STINGS) Allergy (Unknown, Verified 02/13/25 14:17) SWELLING albuterol (Albuterol) Adverse Reaction (Mild, Verified 02/13/25 14:17) JITTERY theophylline (Theophylline) Adverse Reaction (Mild, Verified 02/13/25 14:17) NAUSEA & VOMITING perfume Adverse Reaction (Verified 02/13/25 14:17) Cough GRASS Allergy (Severe, Uncoded 02/13/25 14:17) DIFFICULTY BREATHING FROM GRASS AND LEAVES Medication List - Last Reconciled 04/13/25 by Cosmo Shaw MD albuterol sulfate 90 mcg/actuation inhalation albuterol sulfate mg inhalation QID alprazolam 0.25 mg PO BID PRN 60 days amlodipine 2.5 mg PO DAILY epinephrine IM evolocumab (Repatha SureClick) 140 mg subcut Q2W 90 days famotidine 40 mg PO DAILY finasteride 5 mg PO BEDTIME helium-oxygen 80-20 % As directed hyoscyamine sulfate 0.125 - 0.25 mg sublingual Q4H PRN ketoconazole 2% topical ketoconazole 2% appl topical DAILY montelukast 10 mg PO DAILY pantoprazole 40 mg PO BID tamsulosin 0.4 mg PO BEDTIME HPI Comments Details: Gagandeep comes for follow-up. He has been doing very well from cardiac perspective. Continues to remain very active and says walking up an incline up to a mi he has no significant symptoms of chest pain or shortness of breath. Takes all his medications. His LDL is currently well optimized. Blood pressures been well controlled. He takes all his medications. He stopped taking aspirin due to gastric irritation and pain. He says a gastric pain has now dissipated. [facility] Medical History Coronary artery disease HTN (hypertension) Hyperlipidemia GERD (gastroesophageal reflux disease) Asthma Surgical History History of colonoscopy (~03/14/21) Family History Father Diabetes Heart problem Dementia BP (high blood pressure) High cholesterol Mother BP (high blood pressure) High cholesterol Dementia Social History Housing: House Alcohol intake: former Patient Tobacco Use Status: Former Tobacco user e-Cigarette/Vaping Use: Former Use service: No Current occupational status: retired Cognitive needs: No Hearing needs: Yes (b/l hearing aids) Vision needs: Yes (rx glasses) Review of Systems Const Denies chills, Denies fatigue, Denies fever(s), Denies frequent falls, Denies weakness, Denies weight gain and Denies weight loss ENT Denies dizziness Card Denies chest pain, Denies leg edema, Denies lightheadedness, Denies palpitations, Denies dyspnea, Denies dyspnea on exertion, Denies orthopnea and Denies other (loss of consciousness) Resp Denies cough, Denies dyspnea and Denies dyspnea on exertion GI Denies hematochezia and Denies change in stool character Musc Denies abnormal gait, Denies muscle weakness, Denies numbness, Denies radiating pain into limb and Denies tingling Neuro Denies abnormal gait, Denies dizziness, Denies frequent falls, Denies numbness, Denies tingling and Denies weakness Endo Denies fatigue and Denies palpitations Physical Exam Vital Signs: Last Vital Signs Pulse 80 04/13/25 11:19 BP 120/66 04/13/25 11:19 BMI result Body Mass Index 28.5 Const General: cooperative, healthy appearing, comfortable and no acute distress Orientation/consciousness: patient oriented x3 Neck Neck: Yes normal visual inspection Resp Effort & Inspection: normal respiratory effort Auscultation: clear to auscultation bilaterally, no crackles, no rales, no rhonchi and no wheezes Cardio Jugular venous distension: no JVD Rate: regular rate Rhythm: regular rhythm Heart sounds: S1 normal heart sound present, S2 normal heart sound present, no murmurs and no rubs Neuro General: patient oriented x3 Extrem General: Yes normal to inspection and No no pedal edema Psych Appearance: grossly normal Mental Status: mental status grossly normal Speech and movement: Normal speech and movement present Office Procedures EKG Details: EKG shows normal sinus rhythm with isolated Q-waves in lead 3 most suggestive of pseudo infarct pattern related to body habitus 14355-[id number], Complete Assessment & Plan Assessment & Plan (1) Coronary artery disease: Comment: Significantly elevated coronary calcium score of 1828 Code(s): I25.10 - Atherosclerotic heart disease of rampart coronary artery without angina pectoris Category: Medical Qualifiers: Coronary Disease-Associated Artery/Lesion type: rampart artery [place] vs. transplanted heart: rampart heart Associated angina: without angina Qualified Code(s): I25.10 - Atherosclerotic heart disease of rampart coronary artery without angina pectoris Plan: CAD with diffuse and heavily calcific coronary vessels with no current symptoms. His prior myocardial perfusion imaging at good workload has been within normal limits. No further workup is indicated at this point time. However continue aggressive management of coronary atherosclerosis guideline based medical therapy should be pursued. LDL is extremely well optimized. He can not tolerate aspirin therapy and therefore will provide him with clopidogrel therapy. This was discussed with him. Rationale for this was discussed he understands agrees. Continue aggressive blood pressure control. (2) HTN (hypertension): Code(s): I10 - Essential (primary) hypertension Category: Medical Qualifiers: Hypertension type: primary hypertension Qualified Code(s): I10 - Essential (primary) hypertension Plan: Blood pressure is currently well optimized advised to monitor blood pressure at home maintain a log. Goal blood pressure less than 130/84. Low-salt diet was discussed. Importance of good blood pressure control was discussed continue maintain activity level as tolerated. Will follow up in the clinic in 1 year's time, sooner p.r.n.. Thank you for allowing me to partake in his care Coding Level of Care Code Est Pt Level 4 (13382) Complex EM visit Add On G2211 Diagnoses Coronary artery disease involving rampart coronary artery of rampart heart without angina pectoris I25.10 Coronary Disease-Associated Artery/Lesion type: rampart artery [place] vs. transplanted heart: rampart heart Associated angina: without angina Primary hypertension I10 Hypertension type: primary hypertension CPT Codes EKG - CPT: 31584-Swmszbftozcsshtdx, Complete ([id number])
--- OUTSIDE RECORDS SUMMARY | 2025-04-13 12:06 | XMS_ITS | Patient Health Record ---
Author Organization [facility] E[facility] Address [address] [place] [address] Care Team Providers Care Loss Prevention Investigator Name Role Phone GradyCristin Primary Care Provider Terrence Carver Unavailable [phone] Allergies Allergen (clinical drug ingredient) Drug/Non Drug Allergy documented on EMR Reaction Allergy Type Onset Date Status sulfamethoxazole / trimethoprim Bactrim Rash Drug Allergy Active Latex Latex Rash Allergy Active Reason For Referral No Information Medications Medication SIG (Take, Route, Frequency, Duration) Notes Start Date End Date Status Pepcid 40 MG 1 tablet at bedtime Orally Once a day; Duration: 30 day(s) 05/10/2023 Active Ammonium Lactate 12 % 1 application Externally Twice a day; Duration: 30 days Not-Taking Pantoprazole Sodium 40 MG Oral; Duration: 90 Days Active Finasteride 5 MG Oral; Duration: 90 Days Active Montelukast Sodium 10 MG TAKE 1 TABLET B Y MOUTH EVERY DAY Oral; Duration: 90 Days Active amLODIPine Besylate 2.5 MG TAKE 1 TABLET BY MOUTH EVERY DAY Oral; Duration: 30 Days Active Xanax 0.25 MG 1 tablet Orally Tw day 05/10/2023 Active Tamsulosin HCl 0.4 MG TAKE 1 CAPSULE BY MOUTH AT BEDTIME Oral; Duration: 90 Days Active Social History Tobacco Use: [...] 01/22/2025 Encounters Encounter Location Date Provider Diagnosis [facility] [address] [address] 01/22/2025 Terrence Gallegosunier Ganglion of foot, right M67.471 and Pain in right foot M79.671 Assessments Encounter Date Diagnosis (ICD Code) Assessment Notes Treatment Notes Treatment Clinical Notes Section Notes 01/22/2025 Pain in right foot (ICD-10 - M79.671) 01/22/2025 Ganglion of foot, right (ICD-10 - M67.471) Plan Of Treatment Pending Test Test Name Order Date I&D ABSCESS- SIMPLE,SINGLE 023 31794- Removal of Foreign Body, Subcut 0 05/29/2023 X ray : Ankle, right 3V 01/22/2025 Insurance Providers Payer Name Payer Address Payer Phone Subscriber Number Group Number Insured Name Patient Relationship to Insured Coverage Start Date Coverage End Date Medicare National [facility] [address] [place] [address] [id number] Gagandeep Machuca Self - patient is the insured [employer] [address] [place] [address] [id number] Gagandeep Machuca Self - patient is the insured Medical (General) History Medical History History ICD Code Anxiety asthma CAD (Cholesterol) Hiatal hernia High blood pressure Warts Measles Mumps Chicken pox Surgical History Surgery Date(Month/Year) left shoulder 03/2020 knee surgery, right 03/2004 Hospitalization History Reason Date(Month/Year) [facility]- anxiety 12/2024
--- OUTSIDE RECORDS SUMMARY | 2025-04-13 12:06 | XMS_ITS | Patient Health Record ---
Author Organization [facility] Address [address] [place] [address] Care Team Providers Care Hoop Riveter Name Role Phone Socrates Garcia MD Primary Care Provider Demetrius Oneil Unavailable [phone] Allergies Allergen (clinical drug ingredient) Drug/Non Drug [...] Problem Status W/U Status Risk Notes Problem 001306790 Encounter for screening for malignant neoplasm of colon (Z12.11) Active confirmed Problem 201018732 History of adenomatous polyp of colon (Z86.010) Active confirmed Problem 19936944 Abdominal pain, epigastric (R10.13) Active confirmed Problem 297283522 Family history of colon cancer (Z80.0) Active confirmed Problem 34896906 Hiatal hernia (K44.9) Active confirmed Problem 417400512 Reflux esophagitis (K21.0) Active confirmed Problem 600791778 Abdominal pain, generalized (R10.84) Active confirmed Problem [id number] Abnormal ultrasound of abdomen (R93.5) Active confirmed Problem Gastroesophageal reflux disease with esophagitis (disorder) (605339613) Gastro-esophag eal reflux disease with esophagitis, without bleeding (K21.00) Active confirmed Encounters Encounter Location Date Provider Diagnosis [facility] [address] [place] [address] 05/20/2024 Demetrius Riojas Plan Of Treatment Pending [...] End Date MEDICARE OF [place] [address] [place] [address] [place] [address] [id number] JOAQUIN NASSAR Self - patient is the insured [employer] CLAIMS [address] [place] [address] [id number] KENYACASIE AquinoJOAQUIN Self - patient is the insured Medical (General) History Medical History History ICD Code Denies PR,DM,CVA,Lung disease,renal dise ase Asthma Negative colonoscopy in [...]
== END 2025-04-13 11:42 | disposition home or self-care (01) ==
LOC: HO.HCS 11:08
PROVIDERS: PCP Internal Medicine; Visit Provider Internal Medicine Cardiovascular Disease
DX: I25.10 Atherosclerotic heart disease of native coronary artery without angina pectoris (principal); I10 Essential (primary) hypertension
CPT/HCPCS: 93010; 99214; G2211

== ENCOUNTER → 2025-04-13 11:08 | Outpatient (BNVA) | payer MEDICARE, SELFPAY | PROVIDERS: PCP Internal Medicine; Visit Provider Internal Medicine Cardiovascular Disease | DX: I25.10 Atherosclerotic heart disease of native coronary artery without angina pectoris (principal); I10 Essential (primary) hypertension; R94.31 Abnormal electrocardiogram [ECG] [EKG]; Z79.899 Other long term (current) drug therapy | CPT/HCPCS: 93005; 99212 ==

== ENCOUNTER → 2025-06-05 08:52 | Outpatient (BNVA) | payer MEDICARE, SELFPAY | PROVIDERS: PCP Internal Medicine; Visit Provider Student in an Organized Health Care Education/Training Program | DX: I10 Essential (primary) hypertension (principal); E78.5 Hyperlipidemia, unspecified; I25.10 Atherosclerotic heart disease of native coronary artery without angina pectoris; Z79.02 Long term (current) use of antithrombotics/antiplatelets; Z79.899 Other long term (current) drug therapy | CPT/HCPCS: 99212 ==

== ENCOUNTER → 2025-06-05 08:52 | Outpatient (AMB) | payer MEDICARE, SELFPAY ==
--- NOTE | 2025-06-05 08:54 | A.OFFPC_ITS ---
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: No Allergies Hfdidwc-HCU-XfA Reductase Inhibitor Allergy (Mild, Verified 06/05/25 08:54) feet numbness Sulfa (Sulfonamide Antibiotics) (Sulfa (Sulfonamides)) Allergy (Mild, Verified 06/05/25 08:54) RASH bee pollen (BEE STINGS) Allergy (Unknown, Verified 06/05/25 08:54) SWELLING clopidogrel (From Plavix) Adverse Reaction (Intermediate, Verified 06/05/25 08:59) stomach pain and diarrhea albuterol (Albuterol) Adverse Reaction (Mild, Verified 06/05/25 08:54) JITTERY theophylline (Theophylline) Adverse Reaction (Mild, Verified 06/05/25 08:54) NAUSEA & VOMITING perfume Adverse Reaction (Verified 06/05/25 08:54) Cough GRASS Allergy (Severe, Uncoded 02/13/25 14:17) DIFFICULTY BREATHING FROM GRASS AND LEAVES Tobacco use date assessed: 02/13/25 Dental Screening Dental Screen Date: 02/13/25 HPI HPI Comments History of Present Illness Details The patient is a 74-year-old male presenting with concerns related to the management of his multiple chronic conditions, specifically gastroesophageal reflux disease (GERD), hypertension, asthma, and medication side effects. The patient reports experiencing frequent episodes of gastric reflux, which have been disturbing his sleep. He admits to using Maylax and omeprazole for symptom relief, indicating recent worsening of these symptoms. In addition to GERD, the patient discusses his past asthma attack approximately six to eight weeks ago, which required treatment with prednisone over a 6-day tapering course. Although the asthma appears to be under control presently, the patient remains concerned about the management plan. The patient has reported abdominal pain and skin discoloration as potential side effects of Clopidogrel (Plavix), which he associates with gastrointestinal and dermatologic changes. He identified these side effects after discontinuing and then restarting the medication, as symptoms aligned directly with Clopidogrel use. The patient's medical history further includes hypertension, managed with amlodipine, though he finds blood pressure readings variable between home and clinical settings. Despite no significant complaint regarding his antih ypertensive regime, his blood pressure remains slightly elevated in the office at 136 mmHg. Regarding psychic well-being, the patient voices anxiety managed with Xanax, attempted to be taken at the minimum effective dose of 0.25 mg once daily. 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 [facility] Medical History Coronary artery disease HTN (hypertension) Hyperlipidemia GERD (gastroesophageal reflux disease) Asthma Surgical History History of colonoscopy (~03/14/21) Family History Father Diabetes Heart problem Dementia BP (high blood pressure) High cholesterol Mother BP (high blood pressure) High cholesterol Dementia Social History Housing: House Alcohol intake: former Patient Tobacco Use Status: Former Tobacco user e-Cigarette/Vaping Use: Former Use service: No Current occupational status: retired Cognitive needs: No Hearing needs: Yes (b/l hearing aids) Vision needs: Yes (rx glasses) Questionnaire Thrive Questionnaire Date Thrive assessed: 02/13/25 LOTUS-7 AMB Questionnaire LOTUS-7 Date LOTUS - 7 assessed: 02/13/25 Source: Developed by Drs. Demetrius Baltazar, Sharonda Noe, Leeroy Mrain and colleagues, with an educational mandy from [employer]. Review of Systems Const Details: - Gastrointestinal: Reports recurrent gastric reflux and abdominal pain, denies diarrhea other than recent episode - Cardiovascular: Denies chest pain or palpitations - Dermatological: Reports skin discoloration with purplish-red hue - Neurological: Reports episodes of shakiness and anxiety All systems reviewed & are unremarkable except as noted in HPI and below Physical exam (Primary Care) Vital Signs: Last Vital Signs Temp 96.8 F 06/05/25 09:04 Pulse 70 06/05/25 09:04 Resp 18 06/05/25 09:04 BP 136/62 06/05/25 09:04 Pulse Ox 96 06/05/25 09:04 Oxygen Delivery Method Room Air 06/05/25 09:04 BMI result Body Mass Index 29.0 Tobacco/Smoking Status: Tobacco use Status Tobacco use date assessed 02/13/25 06/05/25 08:57 Patient Tobacco Use Status Former Tobacco user 06/05/25 08:57 e-Cigarette/Vaping Use Former Use 06/05/25 08:57 Thrive Assessment: Date of Thrive Assessment Date Thrive assessed 02/13/25 06/05/25 08:57 Const Other: General: Alert and oriented, Well nourished, No acute distress. Eye: Pupils are equal, round and reactive to light, Intact accommodation, Extraocular movements are intact, Normal conjunctiva, Vision unchanged. HENT: Normocephalic, Atraumatic, Tympanic membranes are clear, Hearing is diminished, Oral mucosa is moist, No pharyngeal erythema, Ear canals patent. Respiratory: Lungs CTA bilaterally, No wheeze, Respirations are non-labored. Cardiovascular: Regular rate, Regular rhythm, S1 auscultated, S2 auscultated, No murmur, Good pulses equal in all extremities, Normal peripheral perfusion, Trace swelling over lower extremities. Gastrointestinal: Soft, Tender in specific areas, Non-distended, Normal bowel sounds, Liver is enlarged, No organomegaly. Musculoskeletal: Normal range of motion, Normal strength, No tenderness, No swelling, No deformity, Normal gait. Integumentary: Warm, Dry, Purplish-red discoloration on face, Intact. Neurologic: Alert, Oriented, Normal sensory, Normal motor function, No focal defects, Cranial Nerves II-XII are grossly intact, Normal deep tendon reflexes. Psychiatric: Cooperative, Appropriate mood & affect, Normal judgment. Coding Level of Care Code Est Pt Level 4 (61488) Complex EM visit Add On G2211 Diagnoses Primary hypertension I10 Hypertension type: primary hypertension Hyperlipidemia, unspecified hyperlipidemia type E78.5 Hyperlipidemia type: unspecified Coronary artery disease involving [place] coronary artery of [place] heart without angina pectoris I25.10 Associated angina: without angina Coronary Disease-Associated Artery/Lesion type: [place] artery [place] vs. transplanted heart: [place] heart Assessment & Plan Assessment & Plan (1) HTN (hypertension): Comment: Managed with amlodipine 2.5 mg daily and pressure is well controlled we will continue the same Code(s): I10 - Essential (primary) hypertension Category: Medical Qualifiers: Hypertension type: primary hypertension Qualified Code(s): I10 - Essential (primary) hypertension Plan: Continue amlodipine (2) Hyperlipidemia: Comment: Currently being managed with Repatha every 2 weeks and last LDL from 2023 at 40 therefore we will repeat lipid panel Code(s): E78.5 - Hyperlipidemia, unspecified Category: Medical Qualifiers: Hyperlipidemia type: unspecified Qualified Code(s): E78.5 - Hyperlipidemia, unspecified Plan: Continue Repatha Ordered lipid panel (3) Coronary artery disease: Comment: Significantly elevated coronary calcium score of 1828 and follows with Cardiology. Supposed to be on Plavix however so discontinued on his own reporting some facial discoloration. Advised patient to continue medication given his beneficial effects Code(s): I25.10 - Atherosclerotic heart disease of [place] coronary artery without angina pectoris Category: Medical Qualifiers: Associated angina: without angina Coronary Disease-Associated Artery/Lesion type: [place] artery [place] vs. transplanted heart: [place] heart Qualified Code(s): I25.10 - Atherosclerotic heart disease of [place] coronary artery without angina pectoris Plan: Continue Plavix Plan 5. Anxiety - Discussed importance of minimizing Xanax due to age-related sedation risks; consider slow wean-off plan I reviewed the patient?s management options for his conditions, including the side effects experienced with Clopidogrel. I recommended trying Clopidogrel again to ensure continuity in his cardiac disease management, understanding fully the patient?s apprehensions. We discussed the potential risks posed by Xanax, emphasizing the importance of tapering this medication to mitigate fall risks and dependency, particularly given his age. After reviewing his active lifestyle, I encouraged this level of activity as a means of maintaining cardiovascular health. Future labs, including lipid profiles, were planned for accurate assessment of the patient?s cholesterol management and to adjust accordingly. Orders: Orders Hemoglobin A1c Today I10 - Essential (primary) hypertension TSH reflex Free T4 Today I10 - Essential (primary) hypertension Lipid Panel Today I10 - Essential (primary) hypertension Patient Instructions: - Keep taking your medications as prescribed. - Watch for any more side effects from Clopidogrel and tell me if they occur. - Continue the omeprazole and lifestyle changes for your reflux. - Maintain your level of activity; it is good for your health. - Check your blood pressure at home and write down the numbers to share at your next visit. - We will do some blood tests, so please come to our next appointment prepared. - Follow up in six months or sooner if you notice any new symptoms or have concerns.
[2025-06-05 09:04] VITALS: BP 136/62; PULSE 70; RESP 18; TEMP 36; O2SAT 96; BMI 29.0
--- OUTSIDE RECORDS SUMMARY | 2025-06-05 09:43 | XMS_ITS | Clinical Summary ---
Author Organization [facility] Address [address] [facility] [address] [place] [address] Phone Care Team Providers Care Junk Removal Specialist Name Role Phone Socrates Garcia MD Primary Care Provider Allergies Active Allergy Reactions Criticality Noted Date Comments Aluminum Acetate Rash Low 03/16/2021 Bee Venom Protein (Honey Bee) 2017 Kemp 04/18/2018 Perfume 10/05/2017 Sulfa (Sulfonamide Antibiotics) Hives 12/07 Medications pantoprazole (PROTONIX) 40 MG tablet Take 40 mg by mouth daily. Twice daily Active montelukast (SINGULAIR) 10 mg tablet Take 10 mg by mouth nightly. Active inhaler spacing device (AEROCHAMBER,BR EATHERITE) Spcr Inhale 1 each into the lungs every 4 (four) hours as needed. 1 each 9 Active ketoconazole 2 % cream AKHIL BID TO AFFECTED FLAKY AREAS ON THE FACE PRN UNTIL IMPROVED 0 Active naproxen (EC NAPROSYN) 500 MG EC tablet Take 1 tablet (500 mg total) by mouth 2 (two) times a day with meals. 60 tablet 1 1 Active amLODIPine (NORVASC) 2.5 MG tablet Take 2.5 mg by mouth daily. 1 Active tamsulosin (FLOMAX) 0.4 mg Cap Take 0.4 mg by mouth nightly at bedtime. 1 Active acetaminophen (TYLENOL) 500 MG tablet Take 500 mg by mouth every 6 (six) hours as needed for pain (specific location in comments). No more than 2000 mg a day Active albuterol 5 mg/mL (0.5%) nebulizer solution Take 2.5 mg by nebulization every 6 (six) hours as needed for wheezing. Active ALPRAZolam (XANAX) 0.25 MG tablet 1 tablet. Active albuterol 90 mcg/actuation inhaler Inhale 2 puffs into the lungs as needed. Active finasteride (PROSCAR) 5 mg tablet Take 5 mg by mouth nightly at bedtime. 2 Active famotidine (PEPCID) 40 MG tablet 1 tablet nightly at bedtime. 2 Active cholecalciferol (VITAMIN D3) 2,000 unit capsule Active EPINEPHrine 0.3 mg/0.3 mL auto-injector Inject 0.3 mL (0.3 mg total) into the muscle as needed for anaphylaxis. 2 each 2 3 Active predniSONE (DELTASONE) 10 MG tablet 6 tab PO qAM for 4 days; THEN 4 tab PO qAM for 2d; THEN 2 tab PO QAM for 2d; THEN 1 tab PO QAM for 1d; THEN STOP 45 tablet 4 Active Hospital, Clinic, or Other Facility Administered Medication Ordered Dose Route Frequency Start Date End Date Status lidocaine (XYLOCAINE) 1% injection 2 mLIndications:Burs itis and tendinitis of shoulder region 2 mL See Adm Inst See admin instructions 08/27/2024 Active triamcinolone acetonide (KENALOG-40) 40 mg/mL injection 40 mgIndications:Burs itis and tendinitis of shoulder region 40 mg IM See admin instructions 08/27/2024 Active Active Problems Problem Noted Date Diagnosed Date Pes anserinus tendinitis of right lower extremit y 07/27/2022 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 Patient deployed his EpiPen, transported to the ER where he received 125 mg of Solu-Medrol at 915. At around 1030 he had further wheezing and was given epinephrine 0.3 mg IM. He has been symptom-free since that time, also received Ativan 1 mg. Patient has gone through desensitization to his allergies but could not complete this due to recurrent anaphylaxis symptoms during the course of desensitization. 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 At this point he has no angioedema, his lungs sound completely clear and he feels well. I do not feel that continuing with Solu-Medrol and antihistamines is warranted. He has a right IJ in place and if he starts having recurrent symptoms I will evaluate him at that time for potential epinephrine, Solu-Medrol and IV antihistamines if necessary. He will need to follow-up with an airplane patroller as an outpatient. He states that his previous airplane patroller retired and he never followed up with a new one. Moderate persistent asthma 02/24/2020 Assessment & Plan (11/26/2020 12:47 PM EST): Will continue with patient's home meds, Singulair, albuterol. He no longer takes Flovent Assessment & Plan (02/24/2020 9:27 PM EDT): Lungs are completely clear currently. He has a prescription for Flovent, but he states that he does not use this because it sometimes irritates his stomach. At this time I will continue with his outpatient medications other than I will be giving him a Combivent inhaler instead of separate Atrovent and albuterol inhalers. I will continue with his Singulair. He was asked to discuss inhaled corticosteroid with his outpatient knife setter grinder machine so that there is one that he will tolerate and continue to take consistently. I do not feel that systemic corticosteroids are necessary at this time. GERD (gastroesophageal reflux disease) 0 Assessment & Plan (02/24/2020 9:30 PM EDT): His home medication list includes omeprazole and pantoprazole. He states that he is taking both of these. I expressed that he likely should only be taking one of these, but he states that his oral surgery physician has him on both of them. At this time we only have pantoprazole in our formulary and I will order 40 mg twice daily. My anticipation is that omeprazole probably could be discontinued prior to discharge. Perhaps the patient is confused and is supposed to be on an H2 ary in addition to the PPI. Hypercholesterolemia 12/16/2017 Assessment & Plan (11/26/2020 12:48 PM EST): No longer takes statins as he is intolerant Assessment & Plan (02/24/2020 9:29 PM EDT): He is not taking his pravastatin currently because it caused burning in his feet. Assessment & Plan (12/16/2017 11:17 AM EDT): Continue simvastatin Benign prostatic hyperplasia without lower urinary tract symptoms 12/16/2017 Assessment & Plan (11/26/2020 12:47 PM EST): Continue Flomax Assessment & Plan (12/16/2017 11:17 AM EDT): Continue flomax Throat swelling 12/15/2017 Assessment & Plan (12/16/2017 11:22 AM EDT): Pt started with sob after inhaling Tulips. Pt states a severe hx of allergies where he was on allergy shots but developed reactions yielding in Epi-shots. Patient received epipen while in ER. Pt states he feels a little better but while in the room developed acute wheeze requiring a neb. - continue nebs - continue singular - continue heliox - continue inhalers - continue solu-medrol 60mg IVP q6h , will convert to oral on discharge Laryngeal spasm Assessment & Plan (11/26/2020 12:47 PM EST): As needed as above, patient will need to follow-up with his allergy and ENT teams Assessment & Plan (12/16/2017 11:18 AM EDT): heliox and nebulizer treatments. Continue PPI Nontraumatic tear of left rotator cuff Resolved Problems Problem Noted Date Diagnosed Date Resolved Date Dyspnea 02/24/2020 02/25/2020 Assessment & Plan (02/24/2020 9:28 PM EDT): I feel that his dyspnea is likely related to vocal cord spasming as he failed to improve with IM epinephrine and IV epinephrine, but improved quite substantially after IV Ativan. At this time, he has no upper airway or lower airway wheezing. He has no dyspnea. I am not going to order anything other than his home medications at this time and we will observe him on telemetry with continuous pulse oximetry. Immunizations Immunization Administration Dates Next Due Pneumococcal polysaccharide PPSV23 10/06/2014 Family History Medical History Relation Comments Failure to thrive Father Dementia Mother Relation Status Comments Father (Age 91) Mother (Age 93) Social History Tobacco Use Types Packs/Day Years Used Date Smoking Tobacco: Former Cigarettes 1 3 Smokeless Tobacco: Former Chew Tobacco Cessation:Counseling Given: Not Answered Alcohol Use Standard Drinks/Week Comments No 0 (1 standard drink = 0.6 oz pur e alcohol) Education Answer Date Recorded Are you interested in more education? Not on jovan e 02/03/2023 Are you concerned about learning? Not on file 02/03/2023 No 02/03/2023 No 02/03/2023 Digital Access Answer Date Recorded No 03/02/2023 No 03/02/2023 Reliable internet access at home? Not on file 03/02/2023 Device with a working camera? Not on file Intimate Partner Violence Answer Date R ecorded Are you denied basic needs s uch as food, clothing, or medical care? No 07/06/2024 In the past 12 months have y ou been in a relationship with a person who hurts, threatens, or tries to control you? No 07/06/2024 Are you denied basic needs s uch as food, clothing, or medical care? No 07/06/2024 In the past 12 months have y ou been in a relationship with a person who hurts, threatens, or tries to control you? No 07/06/2024 Sex and Gender Information Value Date Recorded Sex Assigned at Male 10/15/2017 9:45 AM EST Legal Sex Male 6:31 PM EST Gender Identity Male 10/15/2017 9:45 AM EST Sexual Orientation Straight 10/15/2017 9: 45 AM EST Last Filed Vital Signs Vital Sign Reading Time Taken Comments Blood Pressure 121/80 07/06/2024 9:00 PM EDT Pulse 91 07/06/2024 9:00 PM EDT Temperature 36.5 C (97.7 F) 07/06/2024 6:38 PM EDT Respiratory Rate 22 07/06/2024 9:00 PM EDT Oxygen Saturation 97% 07/06/2024 9:00 PM EDT Inhaled Oxygen Concentration - - Weight 89.8 kg (198 lb) 07/06/2024 6:42 PM EDT Height 177.8 cm (5' 10 ) 07/06/2024 6:42 PM EDT Body Mass Index 28.41 07/06/2024 6:42 PM EDT Plan of Treatment Health Maintenance Due Date Last Done Comments Adult Td,Tdap Booster 1949 LIPID PANEL 1949 DEPRESSION SCREENING 1961 SMOKING Hx and SMOKELESS TOBACCO SCREENING 1962 HEPATITIS C SCREENING 1967 COLOGUARD 1994 COLONOSCOPY 1994 COLORECTAL CANCER SCREENING 1994 FIT TEST 1994 FOBT 1994 SIGMOIDOSCOPY 1994 VIRTUAL COLONOSCOPY 1994 PNEUMOCOCCAL VACCINES (50+ years) (2 of 2 - PCV) 10/06/2015 10/06/2014 ZOSTER VACCINES (2 of 2) 11/17/2020 09/22/2020 COVID-19 VACCINE (3 - 2023-2 5 season) 2024 11/26/2020, 10/19/2020 RSV VACCINE (1 - 1-dose 75+ series) 2024 HEPATITIS A VACCINES Aged Out No long er eligible based on patient's age to complete this topic HIB VACCINES Aged Out No longer eligi ble based on patient's age to complete this topic MENINGOCOCCAL VACCINES (ACWY) Aged Out No longer eligible based on patient's age to complete this topic MENINGOCOCCAL VACCINES (B) Aged Out N o longer eligible based on patient's age to complete this topic Medical Devices Implanted Type Area Scraper Tender Device Identifier Shelf Expiration Date Model / Serial / Lot [place] Suture 4.5mm Arthroscopy Reelx Stt Peek Ss Core Knotless Shapr Tip Expandable Bx/5ea - [id number] Implanted:Qty: 2 on 04/05/2021 by Jonh Khan MD at [facility] Left: Acromial Process [employer] 02/02/2023 [id number] / / [id number] Insurance MEDICARE PART A & B [facility] MEDEX SUPPLEMENT MEDICARE PART A & B [employer] MEDEX SUPPLEMENT MEDICARE PART A & B [employer] MEDEX SUPPLEMENT MEDICARE PART A & B [employer] MEDEX SUPPLEMENT MEDICARE PART A & B [employer] MEDEX SUPPLEMENT MEDICARE PART A & B [employer] MEDEX SUPPLEMENT MEDICARE PART A & B [employer] MEDEX SUPPLEMENT MEDICARE PART A & B [facility] MEDEX SUPPLEMENT MEDICARE PART A & [place] [id number] [employer] MEDEX SUPPLEMENT Advance Directives For more information, please contact: [phone] (9AM - 5PM [facility], Sunday-Sunday) Documents on File Type Date Recorded Patient Hardwood Floor Refinisher Expl anation Healthcare Proxy 04/15/2021 12:13 AM * Full Code (Latest Code Status on File) Date Activated Date Inactivated Comments 11/26/2020 3:09 PM Question Answer Comments Code Status Confirmed With: Patient * Full Code (Confirmed) Date Activated Date Inactivated Comments 02/24/2020 9:23 PM 11/26/2020 3:09 PM Question Answer Comments Code Status Confirmed With: PatientFamily * Full Code (Confirmed) Date Activated Date Inactivated Comments 12/15/2017 9:46 PM 12/17/2017 2:22 PM Question Answer Comments Code Discussion Comments: pt Care Teams Junk Removal Specialist Relationship Specialty Start Date End Date Socrates Garcia MD [address] [place] [address] [place] [address] PCP - General 04/07/14 Additional Source Comments The information contained in this document represents components of the legal health record. It is not the complete legal health record.[facility]
--- OUTSIDE RECORDS SUMMARY | 2025-06-05 09:43 | XMS_ITS | Encounter Summary ---
Author Organization [facility] Address [address] [facility] [address] [place] [address] Phone Care Team Providers Care Bulk Driver Name Role Phone Socrates Garcia MD Primary Care Provider Encounter Details Date Type Department Care Team (Late st Contact Info) Description 05/31/2020 Procedure Pass [facility], [address] [address] Social History Tobacco Use Types Packs/Day Years Used Date Smoking Tobacco: Former Smokeless Tobacco: Never Alcohol Use Standard Drinks/Week Comments No 0 (1 standard drink = 0.6 oz pur e alcohol) Sex and Gender Information Value Date Recorded Sex Assigned at Male 10/15/2017 9:45 AM EST Legal Sex Male 6:31 PM EST Gender Identity Male 10/15/2017 9:45 AM EST Sexual Orientation Straight 10/15/2017 9: 45 AM EST documented as of this encounter Plan of Treatment Not on file documented as of this encounter Visit Diagnoses Not on filedocumented in this encounter Additional Health Concerns Infection Onset Date Last Indicated Resolved Time CoV-Risk 01/06/2021 01/06/2021 01/16/2021 1:23 AM EDT CoV-Risk 10/09/2023 10/09/2023 10/09/2023 5:59 PM EST COVID-19 10/09/2023 10/09/2023 10/30/2023 1:22 AM EST documented as of this encounter Care Teams Bulk Driver Relationship Specialty Start Date End Date Socrates Garcia MD [address] [place] [address] [place] [address] PCP - General 04/07/14 documented as of this encounter Additional Source Comments The information contained in this document represents components of the legal health record. It is not the complete legal health record.[facility]
--- OUTSIDE RECORDS SUMMARY | 2025-06-05 09:43 | XMS_ITS | Patient Health Record ---
Author Organization [facility] Address [address] [place] [address] Care Team Providers Care Hypoid Gear Generator Name Role Phone GradyCristin Primary Care Provider Terrence Carver Unavailable [phone] Allergies Allergen (clinical drug ingredient) Drug/Non Drug [...] 01/22/2025 Encounters Encounter Location Date Provider Diagnosis [facility] [address] [address] 01/22/2025 Terrence Gallegosunier Ganglion of foot, right M67.471 and Pain in right foot M79.671 Assessments Encounter Date Diagnosis (ICD Code) Assessment Notes Treatment Notes Treatment Clinical Notes Section Notes 01/22/2025 Pain in right foot (ICD-10 - M79.671) 01/22/2025 Ganglion of foot, right (ICD-10 - M67.471) Plan Of Treatment Pending Test Test Name Order Date I&D ABSCESS- SIMPLE,SINGLE 023 [id number]- Removal of Foreign Body, Subcut 0 05/29/2023 X ray : Ankle, right 3V 01/22/2025 Insurance Providers Payer Name Payer Address Payer Phone Subscriber Number Group Number Insured Name Patient Relationship to Insured Coverage Start Date Coverage End Date Medicare [facility] [address] [place] [address] [id number] Gagandeep Machuca Self - patient is the insured [employer] [address] [place] [address] [id number] Gagandeep Machuca Self - patient is the insured Medical (General) History Medical History History ICD Code Anxiety asthma CAD (Cholesterol) Hiatal hernia High blood pressure Warts Measles Mumps Chicken pox Surgical History Surgery Date(Month/Year) left shoulder 03/2020 knee surgery, right 03/2004 Hospitalization History Reason Date(Month/Year) [facility] [place] 12/2024
--- OUTSIDE RECORDS SUMMARY | 2025-06-05 09:43 | XMS_ITS | Clinical Summary ---
Author Organization [address] [facility] Address [address] [place] [address] Phone Care Team Providers Care Fish Checker Name Role Phone Cristin Cortez MD Primary Care Provider [phone] Allergies No known active allergies Medications simvastatin (ZOCOR) 20 mg tablet Take 1 tablet (20 mg total) by mouth at bedtime. Active pantoprazole (PROTONIX) 40 mg EC tablet Take 1 tablet (40 mg total) by mouth 1 (one) time each day before breakfast. Do not crush, chew, or split. Active famotidine (PEPCID) 20 mg tablet Take 1 tablet (20 mg total) by mouth 1 (one) time each day. Active albuterol 2.5 mg /3 mL (0.083 %) nebulizer solution Take 3 mL (2.5 mg total) by nebulization every 6 (six) hours if needed for wheezing. Active albuterol (PROVENTIL,VENT MARA) 2 mg/5 mL syrup Take by mouth 3 (three) times a day. Active cetirizine (ZyrTEC) 10 mg tablet Take 1 tablet (10 mg total) by mouth 1 (one) time each day. 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; Seasonal allergic rhinitis due to pollen [facility] [address] [address] Zoe Martin MA from Last 3 Months Social History Tobacco Use Types Packs/Day Years Used Date Smoking Tobacco: Former Cigarettes Passive Smoke Exposure: Past Smokeless Tobacco: Never Sex and Gender Information Value Date Recorded Sex Assigned at Not on file Legal Sex Male 10:55 AM EDT Gender Identity Not on file Sexual Orientation Not on file Obstetrics History Last Filed Vital Signs Vital Sign Reading Time Taken Comments Blood Pressure 123/66 03/26/2025 10:47 AM EDT Pulse 67 03/26/2025 10:47 AM EDT Temperature 36.1 C (97 F) 03/26/2025 10:47 AM EDT Respiratory Rate 17 03/26/2025 10:47 AM EDT Oxygen Saturation 97% 03/26/2025 10:47 AM EDT Inhaled Oxygen Concentration - - Weight 90.7 kg (200 lb) 03/26/2025 10:47 AM EDT Height 177.8 cm (5' 10 ) 03/26/2025 10:47 AM EDT Body Mass Index 28.7 03/26/2025 10:47 AM EDT Plan of Treatment Upcoming Encounters Date Type Department Care Team ([facility] st Contact Info) Description 03/29/2026 9:00 AM EDT Office Visit [facility] [address] [address] Huber Matias MD [address] [place] [phone] Health Maintenance Due Date Last Done Comments DTaP,Tdap,and Td Vaccines (1 - Tdap) 1969 Pneumococcal Vaccine: 50+ Years (2 of 2 - PCV) 10/06/2015 10/06/2014 Zoster Vaccines (2 of 2) 11/17/2020 09/22/2020 COVID-19 Vaccine (3 - 2023-2 5 season) 2024 11/26/2020, 10/19/2020 RSV Immunization Adult Patients (1 - 1-dose 75+ series) 2024 Depression Screening 10/08/2024 Abdominal Aortic Aneurysm (AAA) Screen 03/05/2025 Cholesterol Screening (Lipid Panel) 03/05/2025 Colorectal Cancer Screening: Colonoscopy 03/05/2025 Falls Risk Assessment 03/05/2025 Hepatitis C Screening 03/05/2025 Medicare Annual Wellness Visit 03/05/2025 Social Influencers of Health Screening 03/05/2025 Influenza Vaccine (#1) 2025 08/05/2020 HIB Vaccines Aged Out No longer eligi ble based on patient's age to complete this topic HPV Vaccines Aged Out No longer eligi ble based on patient's age to complete this topic Hepatitis A Vaccines Aged Out No long er eligible based on patient's age to complete this topic Hepatitis B Vaccines Aged Out No long er eligible based on patient's age to complete this topic IPV Vaccines Aged Out No longer eligi ble based on patient's age to complete this topic MMR Vaccines Aged Out No longer eligi ble based on patient's age to complete this topic Meningococcal ACWY Vaccine Aged Out N o longer eligible based on patient's age to complete this topic Meningococcal B Vaccine Aged Out No l onger eligible based on patient's age to complete this topic RSV Immunization Patients Under 20 months Aged Out No longer eligible b ased on patient's age to complete this topic Varicella Vaccines Aged Out No longer eligible based on patient's age to complete this topic Insurance MEDICARE [facility] Care Teams Fish Checker Relationship Specialty Start Date End Date Cristin Cortez MD PCP - General Internal Medicine 03/16/25
--- OUTSIDE RECORDS SUMMARY | 2025-06-05 09:44 | XMS_ITS | Encounter Summary ---
Author Organization [facility] Address [address] [facility] [address] [place] [address] Phone Care Team Providers Care Crm Campaign Manager Name Role Phone Socrates Garcia MD Primary Care Provider Encounter Details Date Type Department Care Team (Late st Contact Info) Description 04/05/2021 Procedure Pass [place] Admitting Dept - Virtual Department [address] [place] [address] Social History Tobacco Use Types Packs/Day Years Used Date Smoking Tobacco: Former Cigarettes 1 3 Smokeless Tobacco: Former Chew Alcohol Use Standard Drinks/Week Comments No 0 [...] Onset Date Last Indicated Resolved Time CoV-Risk 10/09/2023 10/09/2023 10/09/2023 5:59 PM EST COVID-19 10/09/2023 10/09/2023 10/30/2023 1:22 AM EST documented as of this encounter Care Teams Crm Campaign Manager Relationship Specialty Start Date End Date Socrates Garcia MD [address] [place] [address] [place] [phone] (work) PCP - General 04/07/14 documented as of this encounter Additional Source Comments The information contained in this document represents components of the legal health record. It is not the complete legal health record.[facility]
--- OUTSIDE RECORDS SUMMARY | 2025-06-05 09:44 | XMS_ITS | Patient Health Record ---
Author Organization [facility] Address [address] [place] [address] Care Team Providers Care Buttonhole Maker Hand Name Role Phone Jose (RETIRED) Socrates BUTLER Primary Care Provide r Demetrius Bradshaw [phone] Allergies Allergen (clinical drug ingredient) Drug/Non Drug [...] capsule Orally Onc e a day Active Pantoprazole Sodium 40 MG TAKE 1 TABLET BY MOUTH TWICE DAILY Orally Twice a day for 30 days Active Hyoscyamine Sulfate 0.125 MG DISSOLVE 1 TO 2 TABLETS UNDER THE TONGUE EVERY 4 HOURS IF NEEDED FOR ABDOMINAL DISCOMFORT Sublingual Every 4 hours if needed for 30 days Active Famotidine 40 MG [...] Problem Status W/U Status Risk Notes Problem 617648468 Encounter for screening for malignant neoplasm of colon (Z12.11) Active confirmed Problem 157427243 History of adenomatous polyp of colon (Z86.010) Active confirmed Problem 22092204 Abdominal pain, epigastric (R10.13) Active confirmed Problem 950982482 Family history of colon cancer (Z80.0) Active confirmed Problem 27018679 Hiatal hernia (K44.9) Active confirmed Problem 537456288 Reflux esophagitis (K21.0) Active confirmed Problem 096656882 Abdominal pain, generalized (R10.84) Active confirmed Problem [id number] Abnormal ultrasound of abdomen (R93.5) Active confirmed Problem Gastroesophageal reflux disease with esophagitis (disorder) (951065434) Gastro-esophag eal reflux disease with esophagitis, without bleeding (K21.00) Active confirmed Plan Of Treatment Pending Test Test Name [...] End Date MEDICARE OF [place] [address] ERIN AGUILAR [id number] [phone] [id number] JOAQUIN NASSAR Self - patient is the insured [employer] ATT[employer] CLAIMS [address] [place] [phone] [id number] KENYACASIE Aquino JOAQUIN Self - patient is the insured Medical (General) History Medical History History ICD Code Denies NE,DM,CVA,Lung disease,renal dise ase Asthma Negative colonoscopy in [...] and negative abdominal CT scan in the Fall of 2022 for evaluation of abdominal pain Surgical History Surgery Date(Month/Year) Right knee arthroscopy Left rotator cuff surgery March,
== END ==
PROVIDERS: PCP Student in an Organized Health Care Education/Training Program; Visit Provider Student in an Organized Health Care Education/Training Program
DX: I10 Essential (primary) hypertension (principal); E78.5 Hyperlipidemia, unspecified; I25.10 Atherosclerotic heart disease of native coronary artery without angina pectoris